=== PATIENT | female | born 1985 | race Caucasian/White ===

== ENCOUNTER 2018-09-14 07:32 | Emergency (ER) | payer BC, SELFPAY ==
[2018-09-14] VITALS (14 sets, daily range): BP systolic 103–127; BP diastolic 46–82; PULSE 98–118; RESP 4–30; TEMP 36.5–37.4; O2SAT 89–99
[2018-09-14] MEDS: Albuterol/Ipratropium 3 ML UPD VIAL (07:45)
--- NOTE | 2018-09-14 07:52 | ED.GENADUL_ITS ---
Discharge Plan Disposition Patient Disposition: HOME Condition: Stable Discharge Details Chief Complaint: RespSymp Clinical Impression: Acute asthma exacerbation Primary Care Provider: Reese Barrera ED Provider: Javier Hlil Home Meds and New Rx's Prescriptions: New prednisone 50 MG tablet 50 mg PO DAILY Qty: 5 RF: 0 No Action prednisone 5 MG tablet 5 mg PO PRN PRNRF: 0 montelukast [Singulair] 10 MG tablet 10 mg PO DAILY RF: 0 Advair Diskus 1 EACH blister with device 1 puff Inhalation DAILY RF: 0 ProAir HFA 200 PUFF HFA aerosol inhaler 2 puff Inhalation PRN PRNRF: 0 loratadine [Claritin Liqui-Gel] 10 MG capsule 10 mg PO DAILY RF: 0 Discharge Instructions Instructions: Asthma (ED) Additional Instructions: Please take the steroid as directed, please continue to take your inhalers at home every 4-6 hours for the next 24-48 hours. If you notice any worsening of your symptoms, or any new symptoms such as vomiting, diarrhea, fever, chills, shortness of breath, chest pain, numbness, weakness, or fainting , please return immediately to the emergency department for reevaluation. Please follow up with your primary care provider as soon as possible for reassessment and reevaluation. As always, it was a pleasure participating in your medical care today. Referrals: Reese Barrera [Primary Care Provider] - Discharge Data Discharge Date/Time-TO BE ENTERED AT DEPARTURE: 09/14/18 10:23 Medical Decision Making <Umair Nix MD - Last Filed: 09/16/18 10:13> 33 yo female with hx of asthma comes in with shortness of breath since this morning. She states she felt well all day yesterday but did go in the attic to get wrapping paper and there was a lot of dust which can cause her asthma to worsen. She used home beta agonists and called ems who gave nebs and 125mg IV solumedrol and she now states she feels better. She has no hest pain or pressure and denies cough or fevers. She is speaking in 4-5 word sentences and has diffuse wheezing on exam consistent wtih an asthma exacerbation. She has no evidence of dvt or pleuritic chest pain to suggest PE and physical exam is more consistent with asthma. No chest pain or pressure or jvd so doubt acs or chf. I did recommend a chest xray but pt declined this at this time as she states she always gets an xray and doesn't show any pneumonia. Pt will be signed out to Dr. Hill to f/u on patient rsponse to further nebs Differential Diagnosis pneumonia, asthma, rad HPI <Umair Nix MD - Last Filed: 09/16/18 10:13> General Mode of arrival: EMS . Date/Time Provider Initiated Documentation: 09/14/18 07:43 . Limitations to Documentation: no limitations . Information obtained by: patient . History of Present Illness 33 year old F presents to the emergency department with the chief complaint of shortness of breath, described as moderate, Patient started experiencing this hour(s) (5) and it has been constant. other things that improve symptom(s), (nebulizer) No exacerbating factors reported . Patient notes no other symptoms.. Related Data Home Medications Medication Instructions Recorded Confirmed ProAir HFA 2 puff INHALATION PRN PRN 07/30/16 09/14/18 fluticasone-salmeterol [Advair 1 puff INHALATION DAILY 07/30/16 09/14/18 100-50 Diskus] loratadine [Claritin Liqui-Gel] 10 mg PO DAILY 07/30/16 09/14/18 montelukast [Singulair] 10 mg PO DAILY 07/30/16 09/14/18 prednisone 5 mg PO PRN PRN 07/30/16 09/14/18 prednisone 50 mg PO DAILY #5 tab 09/14/18 Previous Rx's Medication Instructions Recorded prednisone 50 mg PO DAILY #5 tab 09/14/18 Allergies Allergy/AdvReac Type Severity Reaction Status Date / Time Penicillins Allergy Mild Skin Rash Unverified 09/14/18 07:45 bee pollen AdvReac Severe Anaphylaxsi Unverified 09/14/18 07:45 s pet dender Allergy Mild Itching Uncoded 09/14/18 07:45 mold AdvReac Severe Anaphylaxsi Uncoded 09/14/18 07:45 s General Stated Complaint: RespSymp DAYO: 3 <Javier Hill DO - Last Filed: 09/14/18 10:14> HPI Narrative: The patient was signed out to me my my colleague Dr. Nix. We are pending improvement of the patient's respiratory symptoms at that time. Patient has had a notable improvement in her symptomatology. She states that she feels much better at this time and would like to go. She is breathing well and shows no signs of respiratory distress. Unfortunately after the additional duo nebs the patient's heart rate did slightly increase to the 120s however while she is resting her heart rate is stable in the mid 90s-100. I discussed additional imaging, and further laboratory workup and the patient refuses any this at this time stating that she will be normal. She feels very comfortable at this time, and feels completely improved with her respiratory status. We did ambulate the patient and her saturations remained greater than 93 during the entire ambulatory pulse ox phase. She showed no signs of significant res piratory distress. Oxygen saturation continues to remain stable, and with the patient's notable clinical improvement and respecting her current wishes for no additional diagnostic imaging I feel that she can be safely discharged home. We did have respiratory therapy come and evaluate the patient multiple times, they do feel comfortable in her clinical scenario. The patient does have a spacer at home already. We will schedule her for an outpatient PFT study. All questions were answered. I have extensively reviewed the treatment plan and discharge instructions with the patient and their family. I have addressed all patient concerns at this time. The patient and family was made aware of what symptoms to monitor for that would warrant a return to the emergency department. Discussed the plan with the patient and family, they demonstrate verbal understanding and agreement with our assessment and plan at this time. Review of Systems <Umair Nix MD - Last Filed: 09/16/18 10:13> Review of Systems All systems reviewed & are unremarkable except as noted in HPI and below Constitutional Denies chills, Denies fever(s) and Denies weakness ENT Denies change in voice Cardiovascular Denies chest pain Gastrointestinal Denies abdominal pain, Denies nausea and Denies vomiting Musculoskeletal Denies joint swelling Neurologic Denies weakness PFSH <Umair Nix MD - Last Filed: 09/16/18 10:13> Social History Smoking/Tobacco Use Status: Never Exam <Umair Nix MD - Last Filed: 09/16/18 10:13> Const General: no acute distress Orientation: alert HENMT Head: normal to inspection Ears: external ears normal General nose exam: external nose normal Mouth: moist mucous membranes Eyes General: appearance normal, both eyes and all related structures Neck Neck: normal visual inspection Resp Auscultation: wheezes Cardio Rate: regular rate Skin General skin exam: no rashes or lesions noted Neuro General: alert and oriented x3 Extrem General: normal to inspection Psych Mental Status: mental status grossly normal Course <Umair Nix MD - Last Filed: 09/16/18 10:13> Vital Signs Temperature 36.5 C 09/14/18 07:38 Pulse 115 H 09/14/18 07:38 Respiratory Rate 21 09/14/18 07:38 Blood Pressure 127/82 09/14/18 07:38 Pulse Oximetry 96 09/14/18 07:38 Temperature 36.5 C 09/14/18 07:38 Temperature Source Temporal Artery Scan 09/14/18 07:38 Pulse 115 H 09/14/18 07:38 Respiratory Rate 21 09/14/18 07:38 Blood Pressure 127/82 09/14/18 07:38 Blood Pressure Position Sitting 09/14/18 07:38 Pulse Oximetry 96 09/14/18 07:38 Oxygen Delivery Method Room Air 09/14/18 07:38 Oxygen Flow Rate 0 09/14/18 07:38 Pain Level 0 09/14/18 07:38
[2018-09-14 07:55] LABS: Abs Immature Grans 0.01 k/cumm (0.0-0.09); Absolute Basophil Count 0.06 k/cumm (0.0-0.2); Absolute Eosinophil Count 0.43 k/cumm (0.0-0.7); Absolute Lymphocyte Count 2.09 k/cumm (1.2-3.4); Absolute Monocyte Count 0.51 k/cumm (0.11-0.7); Absolute Neutrophil Count 6.49 k/cumm (1.2-6.7); Basophils % 0.6; Eosinophils % 4.5; HCT 46.7 % (36.0-46.0); HGB 15.8 g/dL (12.0-15.5); Immature Grans % 0.1; Lymphocytes % 21.8; Mean Corp. HGB Concentration 33.8 g/dL (32.0-36.0); Mean Corpuscular Hemoglobin 31.7 pg (27.0-33.0); Mean Corpuscular Volume 93.8 fL (80-95); Mean Platelet Volume 8.3 fL (8.0-11.0); Monocytes % 5.3; Neutrophils % 67.7; Platelet Count 285 x1000/uL (130-400); RBC 4.98 m/cumm (4.00-5.20); RBC Distribution Width 13.1 % (11.7-14.6); White Blood Cell Count 9.59 k/cumm (4.4-10.8)
[2018-09-14] MEDS: Ondansetron 4 MG/2 ML VIAL (08:01)
[2018-09-14] MEDS: Normal Saline 1,000 ML 1000 ML IV ×2 (08:03→09:05)
[2018-09-14 08:08] LABS: ALT 22 U/L (12-78); AST 8 U/L (15-37); Albumin 3.6 g/dL (3.4-5.0); Alkaline Phosphatase 50 U/L (46-116); Anion Gap 7.4 mmol/L (3-11); BUN 15 mg/dL (7-18); Bilirubin, Total 0.7 mg/dL (0.2-1.0); CO2 28.6 mmol/L (21.0-32.0); CREATININE 0.85 mg/dL (0.55-1.02); Calcium 9.1 mg/dL (8.5-10.1); Chloride 106 mmol/L (98-107); Glucose 121 mg/dL (70-100); Potassium 4.4 mmol/L (3.5-5.1); Sodium 142 mmol/L (136-145); Total Protein 7.2 g/dL (6.4-8.2)
--- NOTE | 2018-09-14 10:05 | RESPIRATORY ---
09/14/18-Met with Pt to discuss OutPt. Respiratory f/u plan. Pt was given neb cups to go home with. Recommended and discussed with Pt having a f/u PFT. [facility] order [facility].
== END 2018-09-14 10:23 | disposition home or self-care (01) ==
PROVIDERS: Emergency Medicine; Emergency Provider Student in an Organized Health Care Education/Training Program; PCP Family Medicine
DX: J45.901 Unspecified asthma with (acute) exacerbation (principal)
CPT/HCPCS: 36415; 80053; 94640; 96361; 96374; 99284; 85025; J2405; J3490; J7620

== ENCOUNTER 2018-10-12 10:27 | Emergency (ER) | payer BC, SELFPAY ==
[2018-10-12] VITALS (17 sets, daily range): BP systolic 117–143; BP diastolic 62–73; PULSE 89–122; RESP 4–22; TEMP 37–37.2; O2SAT 90–100
--- NOTE | 2018-10-12 10:34 | ED.GENADUL_ITS ---
Discharge Plan Disposition Patient Disposition: HOME Condition: Improving Discharge Details Chief Complaint: RespSymp Clinical Impression: Acute asthma exacerbation Primary Care Provider: Reese Barrera ED Provider: Dai Garcia Home Meds and New Rx's Prescriptions: New Advair Diskus 250-50 mcg/dose blister with device 1 inh IH BID Qty: 14 RF: 0 prednisone 50 mg tablet 50 mg PO DAILY 5 Days Qty: 5 RF: 0 loratadine [Claritin] 10 mg tablet 10 mg PO DAILY 30 Days Qty: 30 RF: 0 albuterol sulfate 2.5 mg /3 mL (0.083 %) solution for nebulization 1.25 mg IH QID PRN (Reason: shortness of breath or wheezing) Qty: 75 RF: 0 No Action montelukast [Singulair] 10 MG tablet 10 mg PO DAILY RF: 0 ProAir HFA 200 PUFF HFA aerosol inhaler 2 puff Inhalation PRN PRNRF: 0 Discharge Instructions Instructions: Asthma (ED) Additional Instructions: Use your albuterol inhaler and nebulizer as directed and needed. Take the Advair inhaler daily. Take your Claritin and Singulair daily. Take the steroids until finished. Follow-up with respiratory therapy for your pulmonary function testing. Follow-up with your primary care doctor in 1 week for reevaluation. Return immediately to the emergency department any worsening or new concerning symptoms. Discharge Data Discharge Date/Time-TO BE ENTERED AT DEPARTURE: 10/12/18 12:55 Discharge Physician: Dai Garcia Medical Decision Making 33-year-old female with history of asthma with no history of intubations who presents with cough and shortness of breath since yesterday, worse this morning. Denies any recent fever but does have a sick contact with son with croup. EMS states upon their arrival, patient had O2 sat of 92% on room air, tachypneic to the 50s, tachycardic to the 120s. She was given 2 neb treatments and 125 mg Solu-Medrol and much improved. Respiratory rate decreased to the 30s, and O2 sat 100% during neb treatment, and 95% on room air prior to arrival to ED. Patient arrives to ED able to speak in full sentences, she admits to 80% improvement. She is unsure of her baseline peak flow and states she has difficulty doing this. She has some air movement, slightly diminished, with scattered wheezing. No accessory muscle use. Will give additional DuoNeb and neb treatments, and reassess. 1130 -- pt feels much better. Breath sounds significantly improved, very minimal wheezing. Patient states she feels almost 100% better and feels good to go home. Discussed with respiratory therapy and they plan to follow-up with patient for pulmonary function testing. They had recommended a CBC to check for eosinophils to rule out eosinophilic asthma as she may have an allergic component but her eosinophils were normal. Patient states she ran out of her Flovent several months ago and had not been taking her Claritin. She states lately she had been requiring her albuterol a few times weekly in the nighttime. Patient needs better controller medication. We will send home with a prescription for Advair, refill her Claritin as well as albuterol. She was given peak flow for home. Pt was able to ambulate easily out of the ED and is smiling and in no acute distress. She is instructed to follow with a primary care doctor for reevaluation and to return at any time if worse. HPI General Mode of arrival: ambulatory . Date/Time Provider Initiated Documentation: 10/12/18 10:37 . Limitations to Documentation: no limitations . Information obtained by: patient . HPI Narrative: Patient is a 33-year-old female with a history of asthma who presents with coughing and shortness of breath since yesterday, worse since this morning. She used her inhaler and gave herself neb treatments without relief. Patient states she thinks he would stove at home made her symptoms worse. Patient was seen here 1 month ago for similar history and had taken steroids and her symptoms improved. Patient states she ran out of her Flovent in the summer and did not refill it, and she has not been taking her Claritin or Singulair. States her son was recently diagnosed with croup and she thinks she may have caught in his a virus. She denies any known fever and states her cough is dry. She states she otherwise has been eating and drinking normally. Zenaida states that upon their arrival, patient was tachypnea to the 50s, O2 sat 92% on room air, and tachycardic to the 120s. She was given 2 neb treatments and 125 mg Solu-Medrol IV and has much improvement. O2 sat increased to 100% on neb treatment, and 95% on room air, respiratory rate improved to the 30s-50s, and heart rate decreased to the low 100s. Related Data Home Medications Medication Instructions Recorded Confirmed ProAir HFA 2 puff INHALATION PRN PRN 07/30/16 10/12/18 montelukast [Singulair] 10 mg PO DAILY 07/30/16 10/12/18 albuterol sulfate 1.25 mg IH QID PRN #75 ml 10/12/18 fluticasone-salmeterol [Advair 1 inh IH BID #14 each 10/12/18 Diskus] loratadine [Claritin] 10 mg PO DAILY 30 Days #30 tab 10/12/18 prednisone 50 mg PO DAILY 5 Days #5 tab 10/12/18 Previous Rx's Medication Instructions Recorded albuterol sulfate 1.25 mg IH QID PRN #75 ml 10/12/18 fluticasone-salmeterol [Advair 1 inh IH BID #14 each 10/12/18 Diskus] loratadine [Claritin] 10 mg PO DAILY 30 Days #30 tab 10/12/18 prednisone 50 mg PO DAILY 5 Days #5 tab 10/12/18 Allergies Allergy/AdvReac Type Severity Reaction Status Date / Time Penicillins Allergy Mild Skin Rash Unverified 10/12/18 12:31 bee pollen AdvReac Severe Anaphylaxsi Unverified 10/12/18 12:31 s pet dender Allergy Mild Itching Uncoded 10/12/18 12:31 mold AdvReac Severe Anaphylaxsi Uncoded 10/12/18 12:31 s General Stated Complaint: RespSymp DAYO: 3 Review of Systems Review of Systems All systems reviewed & are unremarkable except as noted in HPI and below Constitutional Reports as per HPI, Denies chills and Denies fever(s) Eyes Denies blurry vision ENT Denies dizziness, Denies sore throat and Denies throat swelling Cardiovascular Denies chest pain and Reports dyspnea Respiratory Reports cough and Reports dyspnea Gastrointestinal Denies abdominal pain, Denies diarrhea and Denies vomiting Genitourinary Denies hematuria and Denies dysuria Musculoskeletal Denies back pain and Denies numbness Integumentary/Breasts Denies lesions and Denies rash Neurologic Denies dizziness and Denies numbness Allergic/Immunologic Denies throat swelling [facility] Medical History Asthma (Chronic) Surgical History History of bilateral tubal ligation (Acute) H/O section (Chronic) Social History Smoking/Tobacco Use Status: Never alcohol intake: never substance use type: does not use Exam Const General: cooperative, healthy appearing and no acute distress HENMT Head: normal to inspection Face and sinus: normal facial exam Eyes General: appearance normal, both eyes and all related structures EOM: EOM intact bilaterally Neck Neck: normal visual inspection and No submandibular swelling Lymphatic: no lymphadenopathy noted Chest Chest: normal inspection of the chest and no tenderness Resp Effort & Inspection: normal respiratory effort, able to speak in complete sentences and other Auscultation: diminished lung sounds bilaterally throughout, no rhonchi and wheezes Cardio Rate: tachycardic Rhythm: regular rhythm GI Inspection: normal to inspection Skin General skin exam: no rashes or lesions noted Neuro General: alert, awake and oriented x3 Cognition: normal cognition Speech: speech normal Motor: muscle tone normal throughout Sensory Exam: no sensory deficits noted Extrem General: normal to inspection, full ROM, normal capillary refill, no calf tenderness bilaterally and no edema Psych Appearance: grossly normal Mental Status: mental status grossly normal Speech and Movement: speech and movement normal Affect: normal affect Course Vital Signs Temperature 98.6 F 10/12/18 10:29 Pulse 122 H 10/12/18 10:29 Respiratory Rate 22 10/12/18 10:29 Blood Pressure 143/73 H 10/12/18 10:29 Pulse Oximetry 95 10/12/18 10:29 Temperature 98.6 F 10/12/18 10:29 Temperature Source Temporal Artery Scan 10/12/18 10:29 Pulse 122 H 10/12/18 10:29 Respiratory Rate 22 10/12/18 10:29 Blood Pressure 143/73 H 10/12/18 10:29 Blood Pressure Position Sitting 10/12/18 10:29 Pulse Oximetry 95 10/12/18 10:29 Oxygen Delivery Method Room Air 10/12/18 10:29 Oxygen Flow Rate 0 10/12/18 10:29 Pain Level 0 10/12/18 10:29
[2018-10-12] MEDS: Albuterol/Ipratropium 3 ML UPD VIAL UPD (10:39)
[2018-10-12] MEDS: Albuterol/Ipratropium 3 ML UPD VIAL (10:45)
--- NOTE | 2018-10-12 10:53 | NUR.NOTE ---
Arrives via EMS. Report solumedrol and duoneb x2 in field. Ryann alert, mild prolonged exhale on arrival. On scale of 10, reports breathing 10 this AM, now feels better 4. Skin warm, dry, pink. Nursing Note:
[2018-10-12 12:00] LABS: Abs Immature Grans 0.03 k/cumm (0.0-0.09); Absolute Eosinophil Count 0.07 k/cumm (0.0-0.7); Absolute Lymphocyte Count 0.99 k/cumm (1.2-3.4); Absolute Monocyte Count 0.16 k/cumm (0.11-0.7); Absolute Neutrophil Count 12.35 k/cumm (1.2-6.7); Basophils % 0.1; Eosinophils % 0.5; HCT 45.8 % (36.0-46.0); HGB 15.7 g/dL (12.0-15.5); Immature Grans % 0.2; Lymphocytes % 7.3; Mean Corp. HGB Concentration 34.3 g/dL (32.0-36.0); Mean Corpuscular Hemoglobin 32.1 pg (27.0-33.0); Mean Corpuscular Volume 93.7 fL (80-95); Mean Platelet Volume 8.5 fL (8.0-11.0); Monocytes % 1.2; Neutrophils % 90.7; Platelet Count 259 x1000/uL (130-400); RBC 4.89 m/cumm (4.00-5.20); RBC Distribution Width 13.1 % (11.7-14.6); White Blood Cell Count 13.62 k/cumm (4.4-10.8)
[2018-10-12 12:01] LABS: Absolute Basophil Count 0.01 k/cumm (0.0-0.2)
--- NOTE | 2018-10-12 12:18 | NUR.NOTE ---
Up to void, reports adequate U/O. No dizziness. Has been on RA, SpO2 >92. I feel perfect right now stated after void, resting on stretcher. Reports feeling a little winded with ambulation to bathroom.Nursing Note:
--- NOTE | 2018-10-12 12:58 | RESPIRATORY ---
10/12/18-Pt arrived by EMS SOB. Pt states she was awoken three different times with SOB. She took her Alb MDI once and then, alb neb two times with no relief. She states her was moving new wood from a back room when she got quite SOB and just took herslef out of the house to get fresh air which she says soothed her more. When EMS arrived Pt was sitting in a chair in [facility]. Pt was given two Duonebs through [employer] [facility]. BS were wheezy . Pt reports she feels a lot better. SOB has resolved. Education on peak flow meter usage along with Asthma Action Plan was developed. Pt was only able to produce 245L/min. post exacerbation. Education on the importance of the peak flow monitoring was discussed.
== END 2018-10-12 12:55 | disposition home or self-care (01) ==
PROVIDERS: Emergency Provider Physician Assistant; PCP Family Medicine
DX: R06.82 Tachypnea, not elsewhere classified (principal); J45.901 Unspecified asthma with (acute) exacerbation; T45.0X6A Underdosing of antiallergic and antiemetic drugs, initial encounter; Z91.128 Patient's intentional underdosing of medication regimen for other reason
CPT/HCPCS: 36415; 94640; 99284; 85025; J7620

== ENCOUNTER 2018-12-21 08:50 | Emergency (ER) | payer BC, SELFPAY ==
[2018-12-21] VITALS (35 sets, daily range): BP systolic 62–168; BP diastolic 31–126; PULSE 122–130; RESP 4–40; TEMP 37.1; O2SAT 90–96
--- NOTE | 2018-12-21 08:56 | ED.GENADUL_ITS ---
Discharge Plan Disposition Patient Disposition: HOME Condition: Improving Discharge Details Chief Complaint: RespSymp Clinical Impression: Asthma exacerbation Primary Care Provider: Reese Barrera ED Provider: Dai Garcia Home Meds and New Rx's Prescriptions: New montelukast [Singulair] 10 mg tablet 10 mg PO QPM Qty: 30 RF: 0 prednisone 20 mg tablet 20 mg PO DAILY Qty: 12 RF: 0 Continued montelukast [Singulair] 10 MG tablet 10 mg PO DAILY RF: 0 ProAir HFA 200 PUFF HFA aerosol inhaler 2 puff Inhalation PRN PRNRF: 0 Advair Diskus 250-50 mcg/dose blister with device 1 inh IH BID Qty: 14 RF: 0 albuterol sulfate 2.5 mg /3 mL (0.083 %) solution for nebulization 1.25 mg IH QID PRN (Reason: shortness of breath or wheezing) Qty: 75 RF: 0 Discharge Instructions Instructions: Asthma (ED) Additional Instructions: Use the albuterol inhaler and nebulizer as needed and directed for shortness of breath or wheezing. Take the Singulair and Advair as directed daily. Take the steroids as directed until finished. Call your primary care doctor tomorrow morning to schedule follow-up appointment for reevaluation and for referral for pulmonary function testing with respiratory and for an outpatient sleep study to rule out obstructive sleep apnea. Discharge Data Discharge Date/Time-TO BE ENTERED AT DEPARTURE: 12/21/18 12:42 Discharge Physician: Dai Garcia Medical Decision Making 33-year-old female with a history of asthma exacerbation who presents with shortness of breath and wheezing since 4 AM this morning. No relief with 3 nebs at home. She presented in moderate respiratory distress and some element of anxiety and tearful. Heart rate 120s. O2 sat 90% on room air. Respiratory rate 40s. Some accessory muscle use. Patient given DuoNeb, will place an IV, Solu-Medrol, magnesium and check labs and chest x-ray. 0910 --patient feels better. Still appears mildly anxious. Respiratory rate 20s. No accessory muscle use. Still with some wheezing and rhonchi. Will give another 5 mg neb and reassess. 1020 --O2 sats 90% on 2L while sleeping, 94% while awake. Pt sounds tight again. Will give a 7.5mg neb and reassess. 1150 --patient feels much better and is requesting to go home. O2 saturation off oxygen for the past 50 minutes 95% on room air. She occasionally has gone down to 89% while sleeping, but when she awakens she is around 94-95%. Breath sounds improved. Heart rate tachycardic in the 120s which is likely due to the albuterol. Patient demonstrates no signs of acute respiratory distress, accessory muscle use and she is speaking in full sentences. She is texting on phone and laughing with her mother in room and appears comfortable. 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 She had been taking Singulair in the past but she ran out of this. Will refill her prescription for Singulair, give an albuterol inhaler for home, as well as a prescription for prednisone. She states she has plenty of her albuterol solution and Advair. She is instructed to call her primary care doctor tomorrow to schedule a follow-up appointment for reevaluation and for referral for a pulmonary function test as well as a sleep study. She states that she has had concerns in the past before that she has obstructive sleep apnea as she has thought that she usually has low her oxygen when she is sleeping. Medical Records Medical records reviewed: Yes I reviewed the patient's medical records. Imaging Data Radiologic Study: Radiologist's impression: XR Chest, 1 View EXAM DATE/TIME: 12/21/2018 8:59 AM FINDINGS: Lungs: Unremarkable. No consolidation. Pleural space: Unremarkable. No pleural effusion. No pneumothorax. Heart/Mediastinum: Unremarkable. No cardiomegaly. Bones/joints: Unremarkable. IMPRESSION: No acute findings. Lab Data Lab results reviewed: Yes I reviewed the patient's lab results. Laboratory Tests Range/Units 12/21/18 12/21/18 12/21/18 09:40 09:40 09:40 WBC (4.4-10.8) k/cumm 12.11 H RBC (4.00-5.20) m/cumm 4.85 Hgb (12.0-15.5) g/dL 15.4 Hct (36.0-46.0) % 45.1 MCV (80-95) fL 93.0 MCH (27.0-33.0) pg 31.8 MCHC (32.0-36.0) g/dL 34.1 RDW (11.7-14.6) % 13.4 Plt Count (130-400) x1000/uL 281 MPV (8.0-11.0) fL 8.4 Immature Gran % 0.2 Neutrophils % 85.0 Lymphocytes % 10.7 Monocytes % 2.4 Eosinophils % 1.4 Basophils % 0.3 Absolute Neutrophils (1.2-6.7) k/cumm 10.29 H Absolute Lymphocytes (1.2-3.4) k/cumm 1.30 Absolute Monocytes (0.11-0.7) k/cumm 0.29 Absolute Eosinophils (0.0-0.7) k/cumm 0.17 Absolute Basophils (0.0-0.2) k/cumm 0.04 Sodium (136-145) mmol/L 142 Potassium (3.5-5.1) mmol/L 3.8 Chloride (98-107) mmol/L 105 Carbon Dioxide (21.0-32.0) mmol/L 26.1 Anion Gap (3-11) mmol/L 10.9 BUN (7-18) mg/dL 14 Creatinine (0.55-1.02) mg/dL 0.92 Estimated GFR/1.73 m2 (mL/min/1.73m2) >= 60.00 Glucose (70-100) mg/dL 140 H Calcium (8.5-10.1) mg/dL 9.2 Serum HCG, Qual Negative HPI General Mode of arrival: ambulatory . Date/Time Provider Initiated Documentation: 12/21/18 08:55 . Limitations to Documentation: no limitations . Information obtained by: patient . HPI Narrative: Pt is a 33yo F w/ a h/o asthma who presents to the ED w/ a c/o shortness of breath since 4 AM. She took 3 neb treatments and 25 mg of prednisone at home without relief. Denies history of intubations. States her last steroids was 1 month ago. Pt states she was supposed with f/u with [facility] here for pulmonary function testing but she has not done this yet. Related Data Home Medications Medication Instructions Recorded Confirmed ProAir HFA 2 puff INHALATION PRN PRN 07/30/16 10/12/18 montelukast [Singulair] 10 mg PO DAILY 07/30/16 10/12/18 Advair Diskus 1 inh IH BID #14 each 10/12/18 albuterol sulfate 1.25 mg IH QID PRN #75 ml 10/12/18 montelukast [Singulair] 10 mg PO QPM #30 tab 12/21/18 prednisone 20 mg PO DAILY #12 tab 12/21/18 Previous Rx's Medication Instructions Recorded Advair Diskus 1 inh IH BID #14 each 10/12/18 albuterol sulfate 1.25 mg IH QID PRN #75 ml 10/12/18 montelukast [Singulair] 10 mg PO QPM #30 tab 12/21/18 prednisone 20 mg PO DAILY #12 tab 12/21/18 Allergies Allergy/AdvReac Type Severity Reaction Status Date / Time Penicillins Allergy Mild Skin Rash Unverified 10/12/18 12:31 bee pollen AdvReac Severe Anaphylaxsi Unverified 10/12/18 12:31 s pet dender Allergy Mild Itching Uncoded 10/12/18 12:31 mold AdvReac Severe Anaphylaxsi Uncoded 10/12/18 12:31 s General DAYO: 3 Review of Systems Review of Systems All systems reviewed & are unremarkable except as noted in HPI and below Constitutional Reports as per HPI, Denies chills and Denies fever(s) Eyes Denies blurry vision ENT Denies dizziness, Denies sore throat and Denies throat swelling Cardiovascular Denies chest pain and Reports dyspnea Respiratory Denies cough and Reports dyspnea Gastrointestinal Denies abdominal pain, Denies diarrhea and Denies vomiting Genitourinary Denies hematuria and Denies dysuria Musculoskeletal Denies back pain and Denies numbness Integumentary/Breasts Denies lesions and Denies rash Neurologic Denies dizziness, Denies focal weakness and Denies numbness Allergic/Immunologic Denies throat swelling [facility] Medical History Asthma (Chronic) Surgical History History of bilateral tubal ligation (Acute) H/O section (Chronic) Social History Smoking/Tobacco Use Status: Never Alcohol Intake: never Drug use: Never Substance use type: does not use Do you feel safe in your relationship?: Yes Exam Const General: cooperative, healthy appearing, in distress respiratory (moderate) and anxious HENMT Head: normal to inspection Face and sinus: normal facial exam Eyes General: appearance normal, both eyes and all related structures EOM: EOM intact bilaterally Neck Neck: normal visual inspection and No submandibular swelling Lymphatic: no lymphadenopathy noted Chest Chest: normal inspection of the chest and no tenderness Resp Effort & Inspection: normal respiratory effort and not able to speak in complete sentences (speaks in 3-4 word sentences) Auscultation: diminished lung sounds bilaterally throughout, rhonchi and wheezes Cardio Rate: tachycardic Rhythm: regular rhythm GI Inspection: normal to inspection Palpation: soft, not firm, not rigid and nontender Auscultation: normal bowel sounds Skin General skin exam: no rashes or lesions noted Neuro General: alert, awake and oriented x3 Cognition: normal cognition Speech: speech normal Motor: muscle tone normal throughout Sensory Exam: no sensory deficits noted Extrem General: normal to inspection, full ROM and no edema Psych Appearance: grossly normal Mental Status: mental status grossly normal Speech and Movement: speech and movement normal Affect: normal affect
--- NOTE | 2018-12-21 09:05 | DI.RAD_ITS ---
SYMPTOM/DIAGNOSIS: EXAC OF ASTHMA PORTABLE AP CHEST AT 0908 HOURS: The heart is not enlarged. The lungs are clear and well expanded. CONCLUSION: No evidence of acute disease.
[2018-12-21] MEDS: Albuterol 2.5 MG/3 ML INH SOLN VIAL ×4 (09:28→10:53)
[2018-12-21] MEDS: Normal Saline 1,000 ML 1000 ML IV (09:35)
[2018-12-21] MEDS: Albuterol/Ipratropium 3 ML UPD VIAL (09:35)
[2018-12-21] MEDS: methylPREDNISolone SUCC 125 MG VIAL IVP (09:35)
[2018-12-21] MEDS: MAGNESIUM SULFATE 2 GM/50 ML BAG IVPB (09:35)
--- NOTE | 2018-12-21 09:46 | DI.VRAD_ITS ---
EXAM: XR Chest, 1 View EXAM DATE/TIME: 12/21/2018 8:59 AM CLINICAL HISTORY: 33 years old, female; Signs and symptoms; Shortness of breath TECHNIQUE: Imaging protocol: XR of the chest, 1 view. COMPARISON: CR CHEST 2 VIEWS PA,LAT 07/30/2016 6:31 AM FINDINGS: Lungs: Unremarkable. No consolidation. Pleural space: Unremarkable. No pleural effusion. No pneumothorax. Heart/Mediastinum: Unremarkable. No cardiomegaly. Bones/joints: Unremarkable. IMPRESSION: No acute findings. Dictated and Authenticated by: Yvonne Sherman MD. Ordering:WINTER Lala MD
[2018-12-21 09:49] LABS: Abs Immature Grans 0.03 k/cumm (0.0-0.09); Absolute Basophil Count 0.04 k/cumm (0.0-0.2); Absolute Eosinophil Count 0.17 k/cumm (0.0-0.7); Absolute Monocyte Count 0.29 k/cumm (0.11-0.7); Basophils % 0.3; Eosinophils % 1.4; HCT 45.1 % (36.0-46.0); HGB 15.4 g/dL (12.0-15.5); Immature Grans % 0.2; Lymphocytes % 10.7; Mean Corp. HGB Concentration 34.1 g/dL (32.0-36.0); Mean Corpuscular Hemoglobin 31.8 pg (27.0-33.0); Mean Platelet Volume 8.4 fL (8.0-11.0); Monocytes % 2.4; Platelet Count 281 x1000/uL (130-400); RBC 4.85 m/cumm (4.00-5.20); RBC Distribution Width 13.4 % (11.7-14.6); White Blood Cell Count 12.11 k/cumm (4.4-10.8)
[2018-12-21 09:51] LABS: Absolute Neutrophil Count 10.29 k/cumm (1.2-6.7)
[2018-12-21 09:56] LABS: Anion Gap 10.9 mmol/L (3-11); BUN 14 mg/dL (7-18); CO2 26.1 mmol/L (21.0-32.0); CREATININE 0.92 mg/dL (0.55-1.02); Calcium 9.2 mg/dL (8.5-10.1); Chloride 105 mmol/L (98-107); Glucose 140 mg/dL (70-100); Potassium 3.8 mmol/L (3.5-5.1); Sodium 142 mmol/L (136-145)
[2018-12-21 10:05] LABS: HCG Qual (Serum) Negative
[2018-12-21] MEDS: Albuterol HFA 8 GM 60 PUFF INH IH (12:27)
== END 2018-12-21 12:42 | disposition home or self-care (01) ==
PROVIDERS: Emergency Provider Physician Assistant; PCP Family Medicine
DX: J45.901 Unspecified asthma with (acute) exacerbation (principal)
CPT/HCPCS: 36415; 80048; 94640; 96361; 96365; 96375; 99284; 71045; 84703; 85025; J2930; J7613; J7620

== ENCOUNTER 2019-10-02 06:25 | Inpatient (IN) | payer BC, SELFPAY ==
[2019-10-02] VITALS (69 sets, daily range): BP systolic 91–146; BP diastolic 47–120; PULSE 95–168; RESP 1–32; TEMP 36.4–36.9; O2SAT 74–99
[2019-10-02] MEDS: EPINEPHrine 1 MG/ML AMP pres-free (06:30)
[2019-10-02] MEDS: methylPREDNISolone SUCC 125 MG VIAL (06:40)
--- NOTE | 2019-10-02 06:47 | DI.RAD_ITS ---
EXAM: XR PORTABLE CHEST AP XR PORTABLE CHEST AP CLINICAL HISTORY: sob. sob TECHNIQUE: 2D digital imaging was performed. COMPARISON: XR PORTABLE CHEST AP from 12/21/2018 FINDINGS: LUNGS: Clear. No pleural abnormality seen. HEART: Normal. MEDIASTINUM: Normal. OTHER FINDINGS: None. IMPRESSION: No acute pulmonary findings.
[2019-10-02] MEDS: Albuterol/Ipratropium 3 ML UPD VIAL ×4 (06:50→07:10)
[2019-10-02] MEDS: MAGNESIUM SULFATE 2 GM/50 ML BAG (06:53)
--- NOTE | 2019-10-02 06:53 | ED.GENADUL_ITS ---
Discharge Plan Disposition Patient Disposition: [facility] INPATIENT Condition: Improving Discharge Details Chief Complaint: RespSymp Clinical Impression: Acute respiratory failure, Asthma exacerbation Primary Care Provider: Reese Barrera ED Provider: Umair Nix Home Meds and New Rx's Prescriptions: No Action montelukast [Singulair] 10 MG tablet 10 mg PO DAILY RF: 0 albuterol sulfate [ProAir HFA] 200 PUFF HFA aerosol inhaler 2 puff Inhalation PRN PRNRF: 0 montelukast [Singulair] 10 mg tablet 10 mg PO QPM Qty: 30 RF: 0 fluticasone propion-salmeterol [Advair Diskus] 250-50 mcg/dose blister with device 1 inh IH BID Qty: 14 RF: 0 albuterol sulfate 2.5 mg /3 mL (0.083 %) solution for nebulization 1.25 mg IH QID PRN (Reason: shortness of breath or wheezing) Qty: 75 RF: 0 Medical Decision Making <Javier Hill DO - Last Filed: 10/02/19 07:45> Upon my evaluation, this patient had a high probability of imminent or life- threatening deterioration, which required my direct attention, intervention, and personal management. I have personally provided 45 minutes of critical care time exclusive of time spent on separately billable procedures. Time includes review of laboratory data, radiology results, discussion with consultants, and monitoring for potential decompensation. Interventions were performed as documented. This is a 34-year-old female with past medical history of severe asthma who has been intubated in the past, who presents today for severe asthma exacerbation. Patient is a poor historian, and is also unable to give much the history secondary to her acute respiratory status however per family she has had shortness of breath and notable difficulty breathing starting at 5 AM. She has been using her breathing intermittently. Aside for a near complete inability to breathe she has no other complaints. Patient was blue in color, oxygen saturations were 70% in room air, she was straining to breathe but otherwise following all commands. She was immediately given 1 mg of epinephrine in the right anterior lateral thigh, started on continued nebulizer treatments, 2 g magnesium were rapidly infused, and she was given Solu-Medrol. The decision to intubate was held off secondary to the concern that this would cause worsening of her respiratory status. On a side note, the patient was recently treated by her dentist for a tooth infection with penicillin which she is taking. She shows no signs of angioedema, or anaphylaxis. I do not feel that her symptoms are secondary to an allergic reaction. 7:01 AM Portable chest x-ray shows no evidence of pneumothorax or significant infiltrate. Patient is still demonstrating a notable work of breathing, however she has a notable increase in her air movement in her lungs. And a significant improvement in her symptomatology. We will transition the patient to BiPAP with continuous nebulizer. 7:20 AM Patient is doing significantly better. Oxygen remained stable. She is still mildly tachycardic. We will give some fluids. Lung sounds are significantly improved, work of breathing is notably improved. Feel that the patient is stable for admission. Will contact the hospitalist. 7:44 AM We did contact the hospitalist, she would like to hold off an admission until ABG has been performed. VBG has returned demonstrates minimal respiratory acidosis. The reason we had held off on the ABG was secondary to the patient's notably anxious state. We will get the ABG at this time, patient will be signed out to my colleague Dr. Nix for final disposition and repeat discussion with the hospitalist after ABG. At this time I do feel that the patient is notably stabilized and appropriate for admission here. FINDINGS: Limitations: The costophrenic angles are not included on the image. Lungs: Unremarkable. No consolidation. Pleural space: Unremarkable. No pleural effusion. No pneumothorax. Heart/Mediastinum: Unremarkable. No cardiomegaly. Bones/joints: Unremarkable. IMPRESSION: 1. No acute cardiopulmonary process. 2. There is no significant interval change from the previous study. Thank you for allowing us to participate in the care of your patient. Dictated and Authenticated by: Hollis Davila MD 10/02/2019 7:11 AM Eastern Time ([place] & [place]) <Umair Nix MD - Last Filed: 10/02/19 08:35> pt off bipap now, abg reassuring. Spoke with Dr. Burnette who has to wait to accept pt as she feels she requires ICU and another inpatient that may need the unit bed Dr. Burnette accepts for admission as no inpatient needs the last ICU bed. PT hd stable at this time HPI <Javier Hill DO - Last Filed: 10/02/19 07:45> General Date/Time Provider Initiated Documentation: 10/02/19 06:35 . HPI Narrative: This is a 34-year-old female with past medical history of severe asthma who has been intubated in the past, who presents today for severe asthma exacerbation. Patient is a poor historian, and is also unable to give much the history secondary to her acute respiratory status however per family she has had shortness of breath and notable difficulty breathing starting at 5 AM. She has been using her breathing intermittently. Aside for a near complete inability to breathe she has no other complaints. She denies fever or productive cough. She denies any recent long trips surgeries or procedures. No other complaints at this time. Related Data Home Medications Medication Instructions Recorded Confirmed albuterol sulfate [ProAir HFA] 2 puff INHALATION PRN PRN 07/30/16 10/02/19 montelukast [Singulair] 10 mg PO DAILY 07/30/16 10/02/19 albuterol sulfate 1.25 mg IH QID PRN #75 ml 10/12/18 10/02/19 fluticasone propion-salmeterol 1 inh IH BID #14 each 10/12/18 10/02/19 [Advair Diskus] montelukast [Singulair] 10 mg PO QPM #30 tab 12/21/18 10/02/19 Previous Rx's Medication Instructions Recorded albuterol sulfate 1.25 mg IH QID PRN #75 ml 10/12/18 fluticasone propion-salmeterol 1 inh IH BID #14 each 10/12/18 [Advair Diskus] montelukast [Singulair] 10 mg PO QPM #30 tab 12/21/18 Allergies Allergy/AdvReac Type Severity Reaction Status Date / Time Penicillins Allergy Mild Skin Rash Unverified 10/02/19 07:03 bee pollen AdvReac Severe Anaphylaxsi Unverified 10/02/19 07:03 s pet dender Allergy Mild Itching Uncoded 10/02/19 07:03 mold AdvReac Severe Anaphylaxsi Uncoded 10/02/19 07:03 s General Stated Complaint: RespSymp DAYO: 2 Review of Systems <DO Kelli Beaulieu Last Filed: 10/02/19 07:45> All systems reviewed & are unremarkable except as noted in HPI and below PFSH <Javier Hill DO - Last Filed: 10/02/19 07:45> Medical History Asthma (Chronic) Social History Smoking/Tobacco Use Status: Never Alcohol Intake: never Drug use: Never Substance use type: does not use Do you feel safe in your relationship?: Yes Exam <Javier Hill DO - Last Filed: 10/02/19 07:45> Narrative Exam Narrative: 1.Const: Notable acute severe distress secondary to respiratory compromise 2.Eyes: PERRL, no conjunctival injection, and symmetrical lids. 3.ENT: Atraumatic external nose and ears. Moist MM. Neck: Symmetric, trachea midline, No thyromegaly. No evidence of angioedema 4.CVS: +S1/S2, No murmurs or gallops. Peripheral pulses 2+ and equal in all extremities. Brisk capillary refill in all extremities. 5.RESP: Nearly 0 respiratory or air movement on auscultation, minimal wheeze auscultated at apexes. 6.GI: Soft, Nontender/Nondistended, No hepatosplenomegaly. No guarding or rebound. 7.MSK: Normocephalic/Atraumatic, Extremities w/o deformity or ttp No cyanosis or clubbing, Normal movement of all extremities 8.Skin: Skin is blue in color, notably straining. 9.Neuro: gynaecological oncologist II-XII grossly intact. Sensation grossly intact, no focal neurologic deficits. 10.Psych: (AAO) x3. Extremely anxious. Course <Javier Hill DO - Last Filed: 10/02/19 07:45> Vital Signs Vital signs: Vital Signs Pulse 129 H 10/02/19 06:25 Respiratory Rate 32 H 10/02/19 06:25 Blood Pressure 146/70 H 10/02/19 06:25 Pulse Oximetry 74 L 10/02/19 06:25 Pulse 129 H 10/02/19 06:25 Respiratory Rate 32 H 10/02/19 06:25 Respiratory Effort Accessory Muscle Use 10/02/19 06:46 Respiratory Depth Shallow 10/02/19 06:46 Blood Pressure 146/70 H 10/02/19 06:25 Pulse Oximetry 74 L 10/02/19 06:25 Oxygen Delivery Method Room Air 10/02/19 06:25 Oxygen Flow Rate 0 10/02/19 06:25 Comment 10/02/19 06:25 Sign Out <Javier Hill DO - Last Filed: 10/02/19 07:45> Sign Out Data: Sign Out Comment: Hospitalist requested ABG results prior to admission. Last updated by Javier Hill DO at 10/02/19 07:46
[2019-10-02 06:56] LABS: HCT 47.5 % (36.0-46.0); HGB 15.6 g/dL (12.0-15.5); Mean Corp. HGB Concentration 32.8 g/dL (32.0-36.0); Mean Corpuscular Hemoglobin 31.2 pg (27.0-33.0); Mean Platelet Volume 8.3 fL (8.0-11.0); Platelet Count 440 x1000/uL (130-400); RBC Distribution Width 13.5 % (11.7-14.6); White Blood Cell Count 16.36 k/cumm (4.4-10.8)
[2019-10-02] MEDS: Ondansetron 4 MG/2 ML VIAL (07:09)
--- NOTE | 2019-10-02 07:11 | DI.VRAD_ITS ---
PROCEDURE INFORMATION: Exam: XR Chest, 1 View Exam date and time: 10/02/2019 6:51 AM Age: 34 years old Clinical indication: Other: SOB; Additional info: Dr west was happy with the picture do not want the lower to be done. Due to PT condition. TECHNIQUE: Imaging protocol: XR of the chest Views: 1 view. COMPARISON: SC XR PORTABLE CHEST AP 12/21/2018 9:04 AM FINDINGS: Limitations: The costophrenic angles are not included on the image. Lungs: Unremarkable. No consolidation. Pleural space: Unremarkable. No pleural effusion. No pneumothorax. Heart/Mediastinum: Unremarkable. No cardiomegaly. Bones/joints: Unremarkable. IMPRESSION: 1. No acute cardiopulmonary process. 2. There is no significant interval change from the previous study. Dictated and Authenticated by: Hollis Davila MD. Ordering:MORENA Herrera MD
[2019-10-02 07:16] LABS: ALT 24 U/L (14-59); AST 8 U/L (15-37); Albumin 3.9 g/dL (3.4-5.0); Alkaline Phosphatase 67 U/L (46-116); Anion Gap 14.3 mmol/L (3-11); BUN 16 mg/dL (7-18); Bilirubin, Total 0.5 mg/dL (0.2-1.0); CO2 22.7 mmol/L (21.0-32.0); CREATININE 0.92 mg/dL (0.55-1.02); Calcium 9.4 mg/dL (8.5-10.1); Chloride 106 mmol/L (98-107); Glucose 210 mg/dL (74-106); Potassium 4.3 mmol/L (3.5-5.1); Sodium 143 mmol/L (136-145); Total Protein 7.4 g/dL (6.4-8.2)
[2019-10-02 07:23] LABS: BE (Venous) -0.9 mmol/L (-3-3); HCO3 (Venous) 26 mmol/L (22-28); O2 Sat (Venous) 59 % (70-80); TCO2 (Venous) 24 mmol/L (22-29); pCO2 (Venous) 54 mm/Hg (34-47); pH (Venous) 7.29 (7.35-7.45); pO2 (Venous) 34 mm/Hg (28-44)
[2019-10-02 07:46] LABS: Absolute Eosinophil Count 1.31 k/cumm (0.0-0.7); Absolute Lymphocyte Count 7.53 k/cumm (1.2-3.4); Absolute Monocyte Count 0.82 k/cumm (0.11-0.7); Absolute Neutrophil Count 6.71 k/cumm (1.2-6.7)
[2019-10-02 07:47] LABS: Diff Comment Manual Differential; RBC Morphology Normal
[2019-10-02 08:08] LABS: HCO3 20 mmol/L (22-28); pCO2 36 mmHg (34-47); pH 7.36 (7.35-7.45); pO2 62 mmHg (83-108); sO2 91 % (94-98); tCO2 18 mmol/L (22-29)
[2019-10-02 08:10] LABS: FIO2 21 %; Site Right Radial
[2019-10-02 10:13] LABS: Lactate 3.1 mmol/L (0.6-1.4)
[2019-10-02 10:43] LABS: Procalcitonin < 0.1 ng/mL
--- NOTE | 2019-10-02 10:43 | W.NUTCONSULT ---
Date of service: 10/02/19 Time of Service: 10:44 Nutritional Consult ASSESSMENT: 34 year old female admitted with acute respiratory failure. PMH: morbid obesity, asthma. At high nutritional risk in view of morbid obesity. Will educate on weight management when appropriate. MONITORING AND EVALUATION: po intake and weight trends Time Spent in Nutritional Counseling and Treatment: 0 time spent face to face
[2019-10-02] MEDS: Normal Saline 1,000 ML 150 ML IV ×2 (11:00→18:13)
[2019-10-02] MEDS: Enoxaparin 40 MG/0.4 ML SYR SC (11:28)
[2019-10-02] MEDS: Pantoprazole 40 MG VIAL IVP (11:28)
--- NOTE | 2019-10-02 11:48 | HPE_ITS ---
Date of service: 10/02/19 Time of Service: 11:48 Assessment and Plan Assessment and plan (1) Asthma with acute exacerbation: Status: Acute Assessment and plan: Admitted to ICU for closer mointoring. Will monitor lactates. Treat with IV steroids, nebs, empiric levofloxacin, symbicort. GERD needs to be controlled. (2) Acute respiratory failure with hypoxia: Status: Acute Assessment and plan: Due to acute asthma exacerbation, reflected by elevated lactates. Now significantly improved. Monitor lactates. Wean O2 as tolerated. Continue treatment of exacerbation of asthma as above Monitor in the ICU. (3) GERD (gastroesophageal reflux disease): Status: Chronic Assessment and plan: Starting PPI in the hospital. The patient should be discharged on a PPI (4) Seasonal allergies: Status: Chronic Assessment and plan: Start antihistamine. (5) Tooth abscess: Status: Acute Assessment and plan: I question if the patient is allergic to clindamycin. This isn't clear. Since the patient was started on levofloxacin, will add metronidazole to her therapy. (6) Discharge planning issues: Status: Acute Assessment and plan: Full code Needs an outpatient account leader Critical Care Time 60 minutes (7) DVT prophylaxis: Status: Acute Assessment and plan: Sc Lovenox History of Present Illness History of Present Illness Chief Complaint: shortness of breath Narrative: Ms Riojas is a 34 year old female with PMHx of asthma previously requiring intubation, seasonal allergies, GERD, and obesity with BMI of 40, who was rushed to [facility] ED by her due to acute shortness of breath, which has not improved with 15 puffs of her albuterol inhaler or with albuterol nebulizer treatment. The patient states that she first felt a little short of breath last night, but this episode quickly resolved with 2 puffs of her albuterol. She denies fevers, chills, cough, runny nose, or sore throat. Of note, for the last 2 days the patient was taking clindamycin (first time on it) for a dental infection. She also uses wood heat, and thinks that the cold also triggers her shortness of breath. She also endorses symptoms of GERD which make it hard for her to breath when she gets them. When she arrived to the ED, she was cyanotics and hypoxic to 74 on room air. She was treated with epinephrine, magnesium, solumedrol, nebulizer treatments and placed on BiPAP with good clinical response. She remains slightly hypoxic, now off of BiPAP, and requiring 1L of O2 to saturated 93%. She is now able to complete lengthy sentences without pausing to breathe and feels better. Review of Systems Narrative: 12 systems reviewed. Pertinent positives and negatives are as per HPI. [facility] Medical History (Updated 10/02/19 @ 12:19 by Tiffany Burnette MD) Asthma (Chronic) GERD (gastroesophageal reflux disease) (Chronic) Obesity, morbid, BMI 40.0-49.9 (Acute) Seasonal allergies (Chronic) Surgical History H/O section (Chronic) History of bilateral tubal ligation (Acute) Family History (Updated 10/02/19 @ 11:59 by Tiffany Burnette MD) Maternal Grandfather Hypertension Maternal Aunt Hypertension Maternal Uncle Diabetes Lung cancer Maternal Uncle Diabetes Maternal Grandmother Diabetes Mother Prediabetes Social History Smoking/Tobacco Use Status: Never Alcohol Intake: never Drug use: Never Substance use type: does not use Do you feel safe in your relationship?: Yes Meds Home Medications and Allergies Home Medications Medication Instructions Recorded Confirmed Type albuterol sulfate [ProAir HFA] 2 puff INHALATION PRN PRN 07/30/16 10/02/19 History montelukast [Singulair] 10 mg PO DAILY 07/30/16 10/02/19 History albuterol sulfate 1.25 mg IH QID PRN #75 ml 10/12/18 10/02/19 Rx fluticasone propion-salmeterol 2 inh IH DAILY 10/02/19 10/02/19 History [Advair Diskus] Allergies Allergy/AdvReac Type Severity Reaction Status Date / Time Penicillins Allergy Mild Skin Rash Unverified 10/02/19 07:03 bee pollen AdvReac Severe Anaphylaxsi Unverified 10/02/19 07:03 s pet dender Allergy Mild Itching Uncoded 10/02/19 07:03 mold AdvReac Severe Anaphylaxsi Uncoded 10/02/19 07:03 s Exam Narrative Exam Narrative: General: very pleasant obese female, A&Ox3, laying comfortably in bed, appears slightly anxious, able to complete lengthy sentences prior to stopping to breathe Neuro:A&Ox3, no focal deficits Psych: mildly anxious, appropriate speech pattern/content Skin: visible skin intact; tattoos HEENT: Atraumatic, normocephalic, EOMI, MMM, No lymphadenopathy, goiter, or JVD; Abscessed tooth L maxilla Heart: RRR, tachycardic, no m/r/g Lungs: slight rhonchi on expiration B, +B air entry Abdomen: soft, nontender, nondistended Extremities: no e/c/c BLE's. 2+ pedal pulses B Results Labs Result diagrams: 10/02/19 06:40 10/02/19 06:40 Labs: Laboratory Results - last 24 hr 10/02/19 10/02/19 10/02/19 06:40 06:40 07:17 WBC 16.36 H RBC 5.00 Hgb 15.6 H Hct 47.5 H MCV 95.0 MCH 31.2 MCHC 32.8 RDW 13.5 Plt Count 440 H MPV 8.3 Immature Gran % 0.0 Neutrophils % 41.0 Lymphocytes % 46.0 Monocytes % 5.0 Eosinophils % 8.0 Basophils % 0.0 Absolute Neutrophils 6.71 H Absolute Lymphocytes 7.53 H Absolute Monocytes 0.82 H Absolute Eosinophils 1.31 H Absolute Basophils 0.00 Differential Comment Manual differential RBC Morphology Normal Sample Site pCO2 pO2 O2 Saturation ABG pH ABG HCO3 ABG Total CO2 ABG Base Excess VBG pH 7.29 L VBG pCO2 54 H VBG pO2 34 VBG HCO3 26 VBG Total CO2 24 VBG O2 Saturation 59 L VBG Base Excess -0.9 FiO2 Sodium 143 Potassium 4.3 Chloride 106 Carbon Dioxide 22.7 Anion Gap 14.3 H BUN 16 Creatinine 0.92 Estimated GFR/1.73 m2 >= 60.00 Glucose 210 H Lactate Calcium 9.4 Total Bilirubin 0.5 AST 8 L ALT 24 Alkaline Phosphatase 67 Total Protein 7.4 Albumin 3.9 Procalcitonin 10/02/19 10/02/19 10/02/19 08:05 10:00 10:00 WBC RBC Hgb Hct MCV MCH MCHC RDW Plt Count MPV Immature Gran % Neutrophils % Lymphocytes % Monocytes % Eosinophils % Basophils % Absolute Neutrophils Absolute Lymphocytes Absolute Monocytes Absolute Eosinophils Absolute Basophils Differential Comment RBC Morphology Sample Site Right radial pCO2 36 pO2 62 L O2 Saturation 91 L ABG pH 7.36 ABG HCO3 20 L ABG Total CO2 18 L ABG Base Excess -5.0 L VBG pH VBG pCO2 VBG pO2 VBG HCO3 VBG Total CO2 VBG O2 Saturation VBG Base Excess FiO2 21 Sodium Potassium Chloride Carbon Dioxide Anion Gap BUN Creatinine Estimated GFR/1.73 m2 Glucose Lactate 3.1 H* Calcium Total Bilirubin AST ALT Alkaline Phosphatase Total Protein Albumin Procalcitonin < 0.1 Last Vital Signs Temp 36.4 C L 10/02/19 10:00 Pulse 108 H 10/02/19 11:00 Resp 18 10/02/19 11:00 BP 115/58 L 10/02/19 11:00 Pulse Ox 93 L 10/02/19 11:00
--- NOTE | 2019-10-02 11:55 | PHARADMIT ---
Addendum entered by Darrick Redd III 10/03/19 11:56: VS-OK, Lytes, SCr, -OK H&H,Plts-down WBC-Up (on steroids) IV Flagyl & Levaquin to transition to P MD considering discharging patient home later today. Original Note: Admission Pharmacy Clinical Review Acute Asthma Exacerbation Code Status Full Code Current Weight 105.8 kg Renally Cleared and Narrow Therapeutic Index Meds CrCl ~74.4 QTc Value / Action Taken BP Control, Fever BP 115/58, HR 108, afebrile Electrolytes reviewed Na 143, K+ 4.3, Mag -- none DVT Prophylaxis LMWH 40mg Opiate Usage / Scheduled Bowel Regimen Ordered none, yes prn Plt/SCr for Heparin / Enoxaparin Plt 440, Scr 0.92 INR for Warfarin H/H stable, WBC/Bands H/H 15.6/47.5 Antibiotic appropriateness Levaquin 750 + Metronidazole Cultures and Sensitivities Flu negative Surgical ABX d/c within 24 hr DM control / Insulin Dosing Heart Failure (Check EF%) (KENN's, B-Block, Diuretics) IV to PO Switch Home Meds Reviewed Yes -- all ok Home Meds Not Ordered All ordered Comments Osat in 70s upon arrival to ED
[2019-10-02] MEDS: Albuterol/Ipratropium 3 ML UPD VIAL UPD ×3 (12:20→23:35)
[2019-10-02] MEDS: levoFLOXacin 750 MG/150 ML BAG 100 MG IVPB (13:03)
[2019-10-02] MEDS: Budesonide/Formoterol 160/4.5 6 GM 60 PUFF INH IH ×2 (13:32→20:13)
[2019-10-02] MEDS: metroNIDAZOLE 500 MG/100 ML BAG 100 MG IVPB ×2 (14:43→20:13)
[2019-10-02] MEDS: methylPREDNISolone SUCC 125 MG VIAL 80 MG IVP ×2 (14:48→22:06)
--- NOTE | 2019-10-02 17:51 | PDOC.CMIN ---
Care Management Initial Assess REASON FOR HOSPITALIZATION:: Acute Asthma Exacerbation PAST MEDICAL HISTORY/PAST SURGICAL HISTORY:: Asthma, GERD, Obesity-morbid: BMI 40.0-49.9, seasonal allergies, section, bilateral tubal ligation PREVIOUS FUNCTIONAL STATUS/SOCIAL/FAMILY SUPPORTS:: Ryann resides in [place], [place] with her , Chetan. Her mother resides nearby in [facility]. 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 She is independent at baseline with ADLs. CURRENT FUNCTIONAL STATUS:: Ryann is preparing for discharge and shares no concerns at this time. ADVANCE DIRECTIVES:: None on file at [facility]. Has patient been provided with information about the portal?: No Did the patient sign up for the portal?: No CODE STATUS:: Full Code INSURANCE COVERAGE / FINANCIAL ISSUES:: [employer] CURRENT HOME/COMMUNITY SERVICES/EQUIPMENT:: No current services. PRIMARY CARE PHYSICIAN:: Reese Barrera POTENTIAL DISCHARGE NEEDS:: Ryann will start a new PPI medication, per MD. Per RT, she will have a follow up PFT and possible overnight oximetry or sleep study scheduled upon discharge. PATIENT/FAMILY EDUCATION NEEDS:: Review discharge instructions, discuss Ask Me Three. ANTICIPATED BARRIERS TO DISCHARGE:: None identified at this time. TRANSPORTATION:: Via private vehicle with family. PLAN:: Ryann will discharge home with no additional services, with close follow up with RT, PCP and with new medications anticipated.
[2019-10-02] MEDS: Ibuprofen 600 MG TAB PO ×2 (18:42→23:34)
[2019-10-02] MEDS: Acetaminophen 325 MG TAB PO ×2 (18:43→23:35)
[2019-10-03] VITALS (33 sets, daily range): BP systolic 108–125; BP diastolic 57–66; PULSE 78–121; RESP 1–30; TEMP 36.6–37.3; O2SAT 91–97
[2019-10-03] MEDS: Normal Saline 1,000 ML 150 ML IV ×2 (00:23→06:48)
[2019-10-03] MEDS: metroNIDAZOLE 500 MG/100 ML BAG 100 MG IVPB ×3 (01:32→13:27)
[2019-10-03] MEDS: Albuterol/Ipratropium 3 ML UPD VIAL UPD ×2 (06:30→11:38)
[2019-10-03] MEDS: methylPREDNISolone SUCC 125 MG VIAL 80 MG IVP ×2 (06:30→13:28)
[2019-10-03 07:06] LABS: Lactate 1.5 mmol/L (0.6-1.4)
[2019-10-03 07:13] LABS: Anion Gap 9.4 mmol/L (3-11); BUN 11 mg/dL (7-18); CO2 23.6 mmol/L (21.0-32.0); CREATININE 0.72 mg/dL (0.55-1.02); Calcium 8.3 mg/dL (8.5-10.1); Chloride 111 mmol/L (98-107); Glucose 137 mg/dL (74-106); Magnesium 1.8 mg/dL (1.8-2.4); Potassium 4.3 mmol/L (3.5-5.1); Sodium 144 mmol/L (136-145)
[2019-10-03 07:17] LABS: Abs Immature Grans 0.06 k/cumm (0.0-0.09); Absolute Neutrophil Count 16.44 k/cumm (1.2-6.7); Basophils % 0.1; HCT 39.8 % (36.0-46.0); Immature Grans % 0.3 %; Lymphocytes % 7.6; Mean Corp. HGB Concentration 32.7 g/dL (32.0-36.0); Mean Corpuscular Hemoglobin 31.4 pg (27.0-33.0); Mean Corpuscular Volume 96.1 fL (80-95); Mean Platelet Volume 8.3 fL (8.0-11.0); Monocytes % 2.9; Neutrophils % 89.1; Platelet Count 330 x1000/uL (130-400); RBC 4.14 m/cumm (4.00-5.20); RBC Distribution Width 13.7 % (11.7-14.6); White Blood Cell Count 18.45 k/cumm (4.4-10.8)
[2019-10-03 07:25] LABS: Absolute Basophil Count 0.02 k/cumm (0.0-0.2); Absolute Monocyte Count 0.54 k/cumm (0.11-0.7)
[2019-10-03] MEDS: Ibuprofen 600 MG TAB PO (07:27)
[2019-10-03] MEDS: Acetaminophen 325 MG TAB PO ×2 (07:27→11:37)
[2019-10-03 07:41] LABS: Procalcitonin < 0.1 ng/mL
[2019-10-03] MEDS: Montelukast 10 MG TAB PO (08:13)
[2019-10-03] MEDS: Loratidine 10 MG TAB PO (08:13)
[2019-10-03] MEDS: Budesonide/Formoterol 160/4.5 6 GM 60 PUFF INH IH (08:14)
[2019-10-03] MEDS: Enoxaparin 40 MG/0.4 ML SYR SC (10:43)
[2019-10-03] MEDS: Pantoprazole 40 MG VIAL IVP (10:43)
[2019-10-03] MEDS: Normal Saline Flush 10 ML SYR IVP (10:43)
[2019-10-03] MEDS: levoFLOXacin 750 MG/150 ML BAG 100 MG IVPB (11:38)
--- NOTE | 2019-10-03 12:34 | DSE_ITS ---
Date of service: 10/03/19 Time of Service: 12:34 DS: Diagnosis Discharge Diagnosis (1) Asthma with acute exacerbation: Status: Acute (2) Acute respiratory failure with hypoxia: Status: Acute (3) GERD (gastroesophageal reflux disease): Status: Chronic (4) Seasonal allergies: Status: Chronic (5) Tooth abscess: Status: Acute (6) Discharge planning issues: Status: Acute (7) DVT prophylaxis: Status: Acute Discharge Plan Disposition Patient Disposition: HOME Condition: Improving Discharge Details Chief Complaint: RespSymp Clinical Impression: Acute respiratory failure, Asthma exacerbation Reason For Visit: ACUTE ASTHMA EXACERBATION Admit Date/Time: 10/02/19 08:32 Admit Provider: Tiffany Burnette Attending Provider: Tiffany Burnette Primary Care Provider: Reese Barrera ED Provider: Umair Nix [facility] Course Hospital Course: Patient presented the morning of October 02 and status asthmaticus. On presentation, she was cyanotic with oxygen saturation of 70% on room air. She was nasally treated with epinephrine along with magnesium, nebulizers, and Solu- Medrol. She was on BiPAP briefly. She did improve rather quickly and was on room air by later that morning, but was admitted to the ICU given her traumatic initial presentation. Patient was stable overnight on room air prior to discharge. It was cleared given the history that asthma triggers in the home were significant issue for the patient. Possible contributors include an older woodstove, pets, and humidity issues. We discussed possibly getting healthy homes evaluation. Allergy evaluation may also be considered. Patient also has notable history of recurrent severe exacerbations, but had not been regularly using controller medications. Reviewed importance of these medications and strategies to help her remember to take them. She also has outpatient PFTs villa eduled. She was discharged with a 9-day taper of prednisone. Loratadine was added to the patient's montelukast for allergy control. We discussed Advair should be taken twice a day rather than once. Increase dose Advair may be considered, but since the patient already had the inhaler this was not changed. It was felt GERD may be contribute to asthma. She was placed on a PPI at discharge, continuation per primary care discretion. Patient was concerned that clindamycin may have contributed to her presentation, though it was not signs of a classic allergic reaction. She was switched to lev ofloxacin and metronidazole for the oral infection and does have an appointment with the dentist to remove the tooth in question on 08 October. Apneic spells and some hypoxia was noted the night prior to discharge, consistent with possible obstructive sleep apnea. Consider outpatient sleep study. Home Meds and New Rx's Prescriptions: New loratadine 10 mg Tablet 10 mg PO DAILY Qty: 90 RF: 1 prednisone 20 mg tablet 60 mg PO DAILY 9 Days Qty: 18 RF: 0 levofloxacin 750 mg tablet 750 mg PO DAILY Qty: 5 RF: 0 metronidazole 500 mg tablet 500 mg PO TID Qty: 15 RF: 0 omeprazole 20 mg capsule,delayed release(DR/EC) 20 mg PO DAILY Qty: 14 RF: 0 Continued montelukast [Singulair] 10 MG tablet 10 mg PO DAILY RF: 0 albuterol sulfate [ProAir HFA] 200 PUFF HFA aerosol inhaler 2 puff Inhalation PRN PRNRF: 0 albuterol sulfate 2.5 mg /3 mL (0.083 %) solution for nebulization 1.25 mg IH QID PRN (Reason: shortness of breath or wheezing) Qty: 75 RF: 2 Changed fluticasone propion-salmeterol [Advair Diskus] 250-50 mcg/dose blister with device 2 inh IH BID Qty: 0 RF: 0 Discharge Instructions Instructions: Asthma (DC) Additional Instructions: - Make sure you are using your Advair inhaler twice a day and allergy medications regularly. - Do not forget follow-up pulmonary function tests - Consider healthy home evaluation and possibly allergy testing Activity:: Activity as Tolerated Equipment/Supplies:: No Equipment Needed Diet:: As Tolerated Discharge Orders Discharge Orders: Discharge Order (Routine); Ordered 10/03/19 Ordered By: Nimesh Austin DS: Summary Status at Discharge Functional status at discharge: independent ambulation Overall status at discharge: patient is back to baseline Mental Status: mental status grossly normal Speech and Movement: speech and movement normal Mood: congruent mood Affect: anxious affect Exam Narrative Exam Narrative: General: A&O, laying comfortably in bed, speaking in full sentences Neuro:A&Ox3, no focal deficits Psych: mildly anxious, appropriate speech pattern/content Skin: visible skin intact; no rashes or hives HEENT: Moist mucous membranes; Abscessed tooth L maxilla. No facial redness or swelling. Conjunctive are clear. Heart: RRR, tachycardic, no m/r/g Lungs: Slightly diminished diffusely, but no wheezes or rales, airflow throughout. Abdomen: soft, nontender, nondistended Extremities: no e/c/c BLE's. Psych Mental Status: mental status grossly normal Speech and Movement: speech and movement normal Mood: congruent mood Affect: anxious affect DS: Data Vitals/I&O Vitals and I&O: Vital Signs Temperature 37.0 C 10/03/19 11:49 Temperature Source Temporal Artery Scan 10/03/19 11:49 Pulse 99 H 10/03/19 11:49 Pulse Rhythm Regular 10/02/19 07:17 Pulse 99 H 10/03/19 11:33 Respiratory Rate 22 10/03/19 11:49 Respiratory Effort 10/03/19 11:49 Respiratory Depth Normal 10/03/19 11:49 Respiratory Pattern Normal 10/03/19 11:49 Blood Pressure 117/65 10/03/19 11:49 Blood Pressure Mean 82 10/03/19 11:49 Blood Pressure Position Supine 10/02/19 21:30 Pulse Oximetry 97 10/03/19 11:49 Oxygen Delivery Method Room Air 10/03/19 11:49 Oxygen Flow Rate 0 10/03/19 11:49 Fraction of Inspired Oxygen (FIO2) 30 10/02/19 07:28 Pain Level 3 10/03/19 11:49 Comment 10/02/19 06:25 Intake & Output 10/02/19 10/03/19 10/03/19 23:59 11:59 23:59 Intake Total 2736.0 / 2736.0 2567.5 / 2567.5 Output Total 1800 / 2225 850 / 850 Balance 936.0 / 511.0 1717.5 / 1717.5 Weight 107.7 kg Intake: IV 1636.0 / 1636.0 1807.5 / 1807.5 Oral 1100 / 1100 760 / 760 Output: Urine 1800 / 2225 850 / 850 Other: Urine Color Pale Yellow Yellow Urine Appearance Clear Clear Urine Odor None None Comment oob to void 350cc's of clear, light colored yellow urine with sg of 1.020. Trace +for blood OOB this am independently, voided 200 cc clear, yellow urine. Stool Size Small Stool Characteristics Soft Formed Voiding Methods Bedside Commode Bedside Commode Data Completed and Pending Labs on day of discharge: Labs from last 24 hours 10/03/19 10/03/19 10/03/19 06:56 06:56 06:56 WBC 18.45 H RBC 4.14 Hgb 13.0 D Hct 39.8 MCV 96.1 H MCH 31.4 MCHC 32.7 RDW 13.7 Plt Count 330 D MPV 8.3 Immature Gran % 0.3 Neutrophils % 89.1 Lymphocytes % 7.6 Monocytes % 2.9 Eosinophils % 0.0 Basophils % 0.1 Absolute Neutrophils 16.44 H Absolute Lymphocytes 1.40 Absolute Monocytes 0.54 Absolute Eosinophils 0.00 Absolute Basophils 0.02 Sodium 144 Potassium 4.3 Chloride 111 H Carbon Dioxide 23.6 Anion Gap 9.4 BUN 11 Creatinine 0.72 Estimated GFR/1.73 m2 >= 60.00 Glucose 137 H Lactate 1.5 H Calcium 8.3 L Magnesium 1.8 Procalcitonin < 0.1 PFSH Medical History (Updated 10/02/19 @ 12:19 by Tiffany Burnette MD) Asthma (Chronic) GERD (gastroesophageal reflux disease) (Chronic) Obesity, morbid, BMI 40.0-49.9 (Acute) Seasonal allergies (Chronic) Surgical History H/O section (Chronic) History of bilateral tubal ligation (Acute) Family History (Updated 10/02/19 @ 11:59 by Tiffany Burnette MD) Maternal Grandfather Hypertension Maternal Aunt Hypertension Maternal Uncle Diabetes Lung cancer Maternal Uncle Diabetes Maternal Grandmother Diabetes Mother Prediabetes Social History Smoking/Tobacco Use Status: Never Alcohol Intake: never Drug use: Never Substance use type: does not use Do you feel safe in your relationship?: Yes
[2019-10-03] MEDS: predniSONE 40 MG, predniSONE 10 MG 50 MG PO (12:56)
== END 2019-10-03 14:50 | disposition home or self-care (01) | DRG 202 ==
LOC: ER 08:46 → ICU 09:28
PROVIDERS: Student in an Organized Health Care Education/Training Program; Admitting Provider Internal Medicine; Emergency Provider Emergency Medicine; PCP Family Medicine; Visit Provider Family Medicine
DX: J45.902 Unspecified asthma with status asthmaticus (principal); J96.01 Acute respiratory failure with hypoxia; Z68.41 Body mass index [BMI] 40.0-44.9, adult; K21.9 Gastro-esophageal reflux disease without esophagitis; K04.7 Periapical abscess without sinus; G47.33 Obstructive sleep apnea (adult) (pediatric); E66.01 Morbid (severe) obesity due to excess calories; Z23 Encounter for immunization
CPT/HCPCS: 36415; 80048; 80053; 82805; 84145; 87449; 94640; 96365; 96366; 96372; 96375; 99239; 99291; J1650; 36600; 71045; 83605; 83735; 85025; J0171; J1956; J2405; J2930; J7512; J7611; J7620

== ENCOUNTER 2019-10-03 15:48 | Emergency (ER) | payer BC, SELFPAY ==
[2019-10-03 15:53] VITALS: BP 126/88; PULSE 107; RESP 22; TEMP 37.4; O2SAT 95
--- NOTE | 2019-10-03 15:56 | W.ED.GENAD ---
Discharge Plan Disposition Patient Disposition: HOME Condition: Good Discharge Details Chief Complaint: Cellulitis Clinical Impression: Hand swelling Primary Care Provider: Reese Barrera ED Provider: Joseline Schneider Home Meds and New Rx's Prescriptions: Continued montelukast [Singulair] 10 MG tablet 10 mg PO DAILY RF: 0 albuterol sulfate [ProAir HFA] 200 PUFF HFA aerosol inhaler 2 puff Inhalation PRN PRNRF: 0 loratadine 10 mg Tablet 10 mg PO DAILY Qty: 90 RF: 1 prednisone 20 mg tablet 60 mg PO DAILY 9 Days Qty: 18 RF: 0 levofloxacin 750 mg tablet 750 mg PO DAILY Qty: 5 RF: 0 metronidazole 500 mg tablet 500 mg PO TID Qty: 15 RF: 0 omeprazole 20 mg capsule,delayed release(DR/EC) 20 mg PO DAILY Qty: 14 RF: 0 fluticasone propion-salmeterol [Advair Diskus] 250-50 mcg/dose blister with device 2 inh IH BID Qty: 0 RF: 0 albuterol sulfate 2.5 mg /3 mL (0.083 %) solution for nebulization 1.25 mg IH QID PRN (Reason: shortness of breath or wheezing) Qty: 75 RF: 2 Discharge Instructions Instructions: Swollen Joint (ED) Additional Instructions: Encourage rest, ice, elevation. Please follow discharge instructions. Compression can help with the swelling in her hand. If you develop fever/chills, rash, pain, discoloration or other new/worsening symptoms please seek care urgently once again. Otherwise, please keep your upcoming appointments. Referrals: Reese Barrera [Primary Care Provider] - Discharge Data Discharge Date/Time-TO BE ENTERED AT DEPARTURE: 10/03/19 16:23 Medical Decision Making Patient is a 34-year-old [id number] female presents today for evaluation of her right hand. She reports that she was discharged 1 hour prior to arrival. She had been admitted over the past 24 hours for status asthmaticus. Has had vast improvement was discharged home. She states that after removal of the IV, which was in the right AC, she began noting swelling in the right hand. She also reports that she received a Pneumovax seen in the right arm as well. Is concerned that this may be causing the swelling. She denies any pain. No fevers or chills. Has not noted any erythema. No discoloration. On exam, patient is resting comfortably. She does have swelling swelling of the right hand and fingers. She has good capillary refill, intact pulses. No cyanosis, discoloration. No palpable cord. No pain along the length of the LUE. Full range of motion. No erythema, warmth or drainage from the IV or injection site. At this point, I do not believe that this is associated with emergent syndrome. I see no evidence to suggest a DVT, infection or other emergent etiology. Rather, this is suspected to be from her recent admission, fluid administration. She was given strict return precautions. I encouraged rest, ice, elevation. She has appointments set up for follow-up. I encouraged she follow discharge instructions. All of her questions and concerns were addressed and she is in agreement this plan. HPI General Mode of arrival: ambulatory. Date/Time Provider Initiated Documentation: 10/03/19 15:50. Limitations to Documentation: no limitations. Information obtained by: patient, family (mother) and RN notes reviewed. History of Present Illness 34 year old F presents to the emergency department with the chief complaint of right hand swelling, Quality is described as other (tingling), and is localized to the right and upper extremity. Patient reports no radiation. Patient started experiencing this hour(s) (1) and it has been constant. No relieving factors improve symptom(s), No exacerbating factors reported . Patient notes no other symptoms.. Patient did receive the following treatments prior to arrival, none Related Data Home Medications Medication Instructions Recorded Confirmed albuterol sulfate [ProAir HFA] 2 puff INHALATION PRN PRN 07/30/16 10/03/19 montelukast [Singulair] 10 mg PO DAILY 07/30/16 10/03/19 albuterol sulfate 1.25 mg IH QID PRN #75 ml 10/03/19 10/03/19 fluticasone propion-salmeterol 2 inh IH BID #0 ea 10/03/19 10/03/19 [Advair Diskus] levofloxacin 750 mg PO DAILY #5 tab 10/03/19 10/03/19 loratadine 10 mg PO DAILY #90 tab 10/03/19 10/03/19 metronidazole 500 mg PO TID #15 tab 10/03/19 10/03/19 omeprazole 20 mg PO DAILY #14 cap 10/03/19 10/03/19 prednisone 60 mg PO DAILY 9 Days #18 tab 10/03/19 10/03/19 Previous Rx's Medication Instructions Recorded albuterol sulfate 1.25 mg IH QID PRN #75 ml 10/03/19 fluticasone propion-salmeterol 2 inh IH BID #0 ea 10/03/19 [Advair Diskus] levofloxacin 750 mg PO DAILY #5 tab 10/03/19 loratadine 10 mg PO DAILY #90 tab 10/03/19 metronidazole 500 mg PO TID #15 tab 10/03/19 omeprazole 20 mg PO DAILY #14 cap 10/03/19 prednisone 60 mg PO DAILY 9 Days #18 tab 10/03/19 Allergies Allergy/AdvReac Type Severity Reaction Status Date / Time Penicillins Allergy Mild Skin Rash Unverified 10/03/19 15:55 bee pollen AdvReac Severe Anaphylaxsi Unverified 10/03/19 15:55 s pet dender Allergy Mild Itching Uncoded 10/03/19 15:55 mold AdvReac Severe Anaphylaxsi Uncoded 10/03/19 15:55 s General Stated Complaint: Cellulitis DAYO: 4 Review of Systems Constitutional Constitutional: Reports as per HPI, Denies chills, Denies fever(s), Denies headache(s) and Denies weakness ENT Ears, Nose, Mouth, and Throat: Denies headache(s) Cardiovascular Cardiovascular: Reports as per HPI Respiratory Respiratory: Reports as per HPI and Denies cough Musculoskeletal Musculoskeletal: Reports as per HPI and Reports tingling Integumentary/Breasts Skin/Breast: Reports as per HPI, Denies rash and Denies wounds Neurologic Neurologic: Reports as per HPI, Denies headache(s), Reports tingling, Denies paresthesias and Denies weakness [facility] Medical History Asthma (Chronic) GERD (gastroesophageal reflux disease) (Chronic) Obesity, morbid, BMI 40.0-49.9 (Acute) Seasonal allergies (Chronic) Surgical History H/O section (Chronic) History of bilateral tubal ligation (Acute) Family History (Updated 10/02/19 @ 11:59 by Tiffany Burnette MD) Maternal Grandfather Hypertension Maternal Aunt Hypertension Maternal Uncle Diabetes Lung cancer Maternal Uncle Diabetes Maternal Grandmother Diabetes Mother Prediabetes Social History Smoking/Tobacco Use Status: Never Alcohol Intake: never Drug use: Never Substance use type: does not use Do you feel safe in your relationship?: Yes Exam Const General: cooperative, healthy appearing, comfortable, no acute distress, well developed and well groomed Nutritional Appearance: average body habitus and well nourished Orientation: alert and awake Resp Effort & Inspection: normal respiratory effort, able to speak in complete sentences and no respiratory distress Cardio Rate: regular rate Rhythm: regular rhythm Skin General skin exam: no rashes or lesions noted Lesions: no lesions Rashes: no rashes Trauma: no lacerations or abrasions Neuro General: alert and awake Cognition: normal cognition Speech: speech normal Gait: normal gait Motor: muscle tone normal throughout Sensory Exam: no sensory deficits noted Extrem Right upper extremity: full ROM, normal capillary refill, shoulder/upper arm (injection site from recent pneumovax noted, no erythema, warmth, drainage) Details: normal to inspection, axillary nerve sensory function normal and normal ROM; no tenderness, no swelling, no deformity and no unusual warmth, elbow/forearm (IV site without signs of infection) Details: normal to inspection and normal ROM; no tenderness and no swelling, wrist Details: normal to inspection and normal ROM; no tenderness and no swelling and hand Details: normal capillary refill, neuromotor exam normal, neurosensory exam normal, normal ROM of fingers and swelling; abnormal to inspection (swelling in fingers), no tenderness, no unusual warmth, no ecchymosis and no crepitus; abnormal to inspection (swelling of the fingers on the right hand) and no cyanosis Psych Appearance: grossly normal and well kempt Mental Status: mental status grossly normal Speech and Movement: speech and movement normal Course Vital Signs Vital signs: Vital Signs Temperature 37.4 C 10/03/19 15:53 Pulse 107 H 10/03/19 15:53 Respiratory Rate 22 10/03/19 15:53 Blood Pressure 126/88 10/03/19 15:53 Pulse Oximetry 95 10/03/19 15:53 Temperature 37.4 C 10/03/19 15:53 Temperature Source Skin 10/03/19 15:53 Pulse 107 H 10/03/19 15:53 Respiratory Rate 22 10/03/19 15:53 Blood Pressure 126/88 10/03/19 15:53 Blood Pressure Position Sitting 10/03/19 15:53 Pulse Oximetry 95 10/03/19 15:53 Oxygen Delivery Method Room Air 10/03/19 15:53 Oxygen Flow Rate 0 10/03/19 15:53
== END 2019-10-03 16:23 | disposition home or self-care (01) ==
PROVIDERS: Emergency Provider Physician Assistant; PCP Family Medicine
DX: T82.898A Other specified complication of vascular prosthetic devices, implants and grafts, initial encounter (principal); R60.0 Localized edema; Y84.8 Other medical procedures as the cause of abnormal reaction of the patient, or of later complication, without mention of misadventure at the time of the procedure
CPT/HCPCS: 99282

== ENCOUNTER 2019-10-23 02:06 | Outpatient (CLI) | payer BC, SELFPAY ==
--- NOTE | 2019-10-23 09:29 | PFT_ITS ---
PULMONARY FUNCTION TEST REPORT DATE OF SERVICE: October 23, 2019 REQUESTING PROVIDER: Reese Barrera M.D. Spirometry shows severe obstructive airways disease with significant bronchodilator response. Lung volumes show no evidence of restriction. There is mild to moderate hyperinflation and air trapping. Diffusion capacity normal. Airways resistance elevated. IMPRESSION: Very severe obstructive airways disease with significant bronchodilator response. This is associated with mild to moderate hyperinflation and air trapping and elevated airways resistance. Clinical correlation recommended. SARA/peter D/
[2019-10-23] MEDS: Inhaler, Assist Device 1 EACH MC (11:02)
[2019-10-23] MEDS: Albuterol HFA 18 GM 200 PUFF INH IH (11:02)
== END 2019-10-23 02:26 ==
PROVIDERS: PCP Family Medicine; Visit Provider Radiology Radiation Oncology
DX: R06.02 Shortness of breath (principal); R06.2 Wheezing; Z77.22 Contact with and (suspected) exposure to environmental tobacco smoke (acute) (chronic); J98.8 Other specified respiratory disorders
CPT/HCPCS: 94060; 94726; 94729

== ENCOUNTER 2020-06-12 04:50 | Emergency (ER) | payer BC, SELFPAY ==
--- NOTE | 2020-06-12 04:52 | ED.GENADUL_ITS ---
Discharge Plan Disposition Patient Disposition: HOME Condition: Good Discharge Details Clinical Impression: Acute right-sided thoracic back pain Primary Care Provider: Reese Barrera ED Provider: Rudolph Olvera [place] Meds and New Rx's Prescriptions: New ibuprofen 600 mg tablet 600 mg PO Q8H PRNQty: 15 RF: 0 cyclobenzaprine 10 mg tablet 10 mg PO Q8H PRN (Reason: Spasms) Qty: 15 RF: 0 lidocaine 5 % adhesive patch,medicated 1 patch topical DAILY Qty: 15 RF: 0 Continued montelukast [Singulair] 10 MG tablet 10 mg PO DAILY RF: 0 albuterol sulfate [ProAir HFA] 200 PUFF HFA aerosol inhaler 2 puff Inhalation PRN PRNRF: 0 loratadine 10 mg Tablet 10 mg PO DAILY Qty: 90 RF: 1 fluticasone propion-salmeterol [Advair Diskus] 250-50 mcg/dose blister with device 2 inh IH BID Qty: 0 RF: 0 albuterol sulfate 2.5 mg /3 mL (0.083 %) solution for nebulization 1.25 mg IH QID PRN (Reason: shortness of breath or wheezing) Qty: 75 RF: 2 prednisone 20 mg Tablet 40 mg PO DAILY RF: 0 Discharge Instructions Instructions: Back Pain (ED) Additional Instructions: Medications as prescribed. Activity as tolerated. Heat and gentle stretching. Follow-up with primary care if not better by end of week. Return to ED for fever, increasing shortness of breath, chest pain, abdominal pain, other concerns. Stand Alone Forms: Work Release Referrals: Reese Barrera [Primary Care Provider] - Medical Decision Making Patient presenting with right lower thoracic back pain that occurred when coughing. Is unable to get comfortable or move because of pain. Does not feel short of breath. Has wheezing and cough due to asthma exacerbation. She has no abdominal tenderness on exam. She has no chest tenderness. She has tenderness to palpation posterior lateral inferior rib margins. Significant pain with movement. Likely musculoskeletal in nature. Will give IM Toradol, p.o. Flexeril, topical lidocaine and obtain chest x-ray and urine. 06:30 - CXR negative for pneumothorax or infiltrate. No obvious rib fractures. Patient will medications. Able to clear her throat and cough a little as well as move better. Patient comfortable with discharge with prescriptions for ibuprofen, cyclobenzaprine, lidocaine patch. Off work for the next couple of days. Heat, gentle massage and stretching. Follow-up with primary care if not getting better over the next few days. Return to the ED for fever, increasing shortness of breath, uncontrolled pain, abdominal pain, other concerns. HPI General Mode of arrival: wheelchair . Date/Time Provider Initiated Documentation: 06/12/20 04:52 . Limitations to Documentation: no limitations . Information obtained by: patient and RN notes reviewed . HPI Narrative: Patient presents to ED with right sided thoracic back pain. Patient coughed last evening and developed severe pain with the cough. She has not had increase in shortness of breath at all. She has cough and wheezing from asthma e xacerbation. She is on prednisone. She has tested negative for COVID with the result returning yesterday. She is not having chest pain. She is not having abdominal pain, nausea or vomiting. She took ibuprofen last night after it happened. She is unable to move at all because of pain with movement. She denies urinary symptoms. Related Data Home Medications Medication Instructions Recorded Confirmed albuterol sulfate [ProAir HFA] 2 puff INHALATION PRN PRN 07/30/16 06/12/20 montelukast [Singulair] 10 mg PO DAILY 07/30/16 06/12/20 albuterol sulfate 1.25 mg IH QID PRN #75 ml 10/03/19 06/12/20 fluticasone propion-salmeterol 2 inh IH BID #0 ea 10/03/19 10/03/19 [Advair Diskus] loratadine 10 mg PO DAILY #90 tab 10/03/19 06/12/20 cyclobenzaprine 10 mg PO Q8H PRN #15 tab 06/12/20 ibuprofen 600 mg PO Q8H PRN #15 tab 06/12/20 lidocaine 1 patch TOPICAL DAILY #15 ea 06/12/20 prednisone 40 mg PO DAILY 06/12/20 06/12/20 Previous Rx's Medication Instructions Recorded albuterol sulfate 1.25 mg IH QID PRN #75 ml 10/03/19 fluticasone propion-salmeterol 2 inh IH BID #0 ea 10/03/19 [Advair Diskus] loratadine 10 mg PO DAILY #90 tab 10/03/19 cyclobenzaprine 10 mg PO Q8H PRN #15 tab 06/12/20 ibuprofen 600 mg PO Q8H PRN #15 tab 06/12/20 lidocaine 1 patch TOPICAL DAILY #15 ea 06/12/20 Allergies Allergy/AdvReac Type Severity Reaction Status Date / Time Penicillins Allergy Mild Skin Rash Unverified 06/12/20 05:06 bee pollen AdvReac Severe Anaphylaxsi Unverified 06/12/20 05:06 s pet dender Allergy Mild Itching Uncoded 06/12/20 05:06 mold AdvReac Severe Anaphylaxsi Uncoded 06/12/20 05:06 s General DAYO: 4 Review of Systems Narrative: As documented in HPI otherwise negative as below. Const: no fever, chills, weakness Resp: no SOB, pleuritic pain CV: no CP, diaphoresis, edema, syncope GI: no abdominal pain, nausea, vomiting, diarrhea Neuro: no headache, numbness, focal weakness, confusion PFSH Medical History (Updated 06/12/20 @ 06:36 by Rudolph Olvera MD) Asthma GERD (gastroesophageal reflux disease) Obesity, morbid, BMI 40.0-49.9 Seasonal allergies Surgical History H/O section History of bilateral tubal ligation Family History (Updated 10/02/19 @ 11:59 by Tiffany Burnette MD) Maternal Grandfather Hypertension Maternal Aunt Hypertension Maternal Uncle Diabetes Lung cancer Maternal Uncle Diabetes Maternal Grandmother Diabetes Mother Prediabetes Social History Smoking/Tobacco Use Status: Never Alcohol Intake: current Alcohol Intake frequency: a few times a week Alcohol type: wine Drug use: Occasionally Substance use type: does not use, marijuana and other Do you feel safe at home: Yes Do you feel safe in your relationship?: Yes Exam Narrative Exam Narrative: Vitals: Afebrile with normal vitals and room air pulse ox. Const: Obese female in NAD. HEENT: NC/AT. Normal facial exam. Eyes: Normal conjunctiva and sclera. Neck: Supple. Trachea midline. Lungs: Normal respiratory effort. Lungs good air exchange but wheezing. Cor: RRR without murmur/gallop. Good radial pulses. GI: Soft. NT/ND. No guarding or rebound. Back: No CVAT. Pain with palpation along the posterior and lateral inferior ribs on the right. Neuro: A+O x 3. Normal speech, mentation, gait. Cranial nerves II - XII grossly intact. No gross motor or sensory deficit. Ext: No C/C/E. Skin: Warm and dry without rash.
[2020-06-12 04:58] VITALS: BP 133/87; PULSE 80; RESP 20; TEMP 37.7; O2SAT 97
--- NOTE | 2020-06-12 05:00 | DI.RAD_ITS ---
EXAM: XR CHEST 2V PA LATERAL CLINICAL HISTORY: right thoracic back pain TECHNIQUE: 2D digital imaging was performed. COMPARISON: CR,XR XR PORTABLE CHEST AP from 10/02/2019 FINDINGS: MEDIASTINUM: Normal. HEART: Normal. PULMONARY VASCULATURE: Normal. LUNGS: No focal consolidating infiltrates. PLEURAL SPACE: No pleural effusion or pneumothorax. BONE:Within normal limits for the patient's age. OTHER FINDINGS:Normal. IMPRESSION: No acute pulmonary findings. DATA REPOSITORY: RADIATION DOSE DELIVERED:
[2020-06-12] MEDS: Lidocaine 5% Patch 1 PATCH TP (05:21)
[2020-06-12] MEDS: Cyclobenzaprine 10 MG TAB PO (05:23)
[2020-06-12] MEDS: Ketorolac 30 MG/ML VIAL IM (05:25)
--- NOTE | 2020-06-12 05:57 | DI.VRAD_ITS ---
PROCEDURE INFORMATION: Exam: XR Chest, 2 Views Exam date and time: 06/12/2020 5:44 AM Age: 35 years old Clinical indication: Other: R thoracic back pain; Patient HX: Right thoracic back pain TECHNIQUE: Imaging protocol: XR of the chest Views: 2 views. COMPARISON: CR XR PORTABLE CHEST AP 10/02/2019 6:47 AM FINDINGS: Lungs: Mild chronic interstitial prominence, grossly stable. No consolidation. Pleural space: No pleural effusion. No pneumothorax. Heart/Mediastinum: Grossly stable. Bones/joints: Grossly stable Mild gaseous distension in the left upper quadrant IMPRESSION: No radiographic evidence for pneumonia Mild non-specific gaseous distention in the left upper quadrant. Further evaluation of the abdomen and pelvis as clinically indicated Dictated and Authenticated by: Abrahan Lopez MD. Ordering:JANA Galdamez MD
[2020-06-12 06:46] VITALS: BP 125/69; PULSE 81; RESP 16; TEMP 37.2; O2SAT 98
== END 2020-06-12 06:50 | disposition home or self-care (01) ==
LOC: ER 06:43
PROVIDERS: Emergency Provider Emergency Medicine; PCP Family Medicine
DX: M54.6 Pain in thoracic spine (principal); J45.901 Unspecified asthma with (acute) exacerbation; Z03.818 Encounter for observation for suspected exposure to other biological agents ruled out
CPT/HCPCS: 96372; 99284; 71046; J1885

== ENCOUNTER 2022-08-09 15:56 | Emergency (ER) | payer BC, SELFPAY ==
[2022-08-09] VITALS (13 sets, daily range): BP systolic 133–136; BP diastolic 70–82; PULSE 105–116; RESP 20–22; TEMP 36.5; O2SAT 90–97
--- NOTE | 2022-08-09 16:44 | ED.GENADUL_ITS ---
Discharge Plan Disposition Patient Disposition: Home Condition: Stable Discharge Details Clinical Impression: Acute asthma exacerbation Primary Care Provider: Reese Barrera ED Provider: Mayur Ibarra Home Meds and New Rx's Prescriptions: New prednisone 20 mg tablet 40 mg PO DAILY Qty: 8 0RF Continued montelukast [Singulair] 10 MG tablet 10 mg PO DAILY albuterol sulfate [ProAir HFA] 200 PUFF HFA aerosol inhaler 2 puff Inhalation PRN PRN loratadine 10 mg Tablet 10 mg PO DAILY Qty: 90 1RF fluticasone propion-salmeterol [Advair Diskus] 250-50 mcg/dose blister with device 2 inh IH BID Qty: 0 0RF Trelegy Ellipta 200-62.5-25 mcg blister with device 1 ea INHALATION DAILY Label Comments: INHALE 1 PUFF BY MOUTH EVERY DAY albuterol sulfate 2.5 mg /3 mL (0.083 %) solution for nebulization 1.25 mg IH QID PRN (Reason: shortness of breath or wheezing) Qty: 75 2RF Discharge Instructions Instructions: Asthma (ED) Additional Instructions: Use albuterol neb or inhaler (2 puffs) as prescribed every 4 hours over the next few days for wheezing. Take prednisone as prescribed. Please contact your primary care physician to arrange follow-up. Return to the ER immediately for any worsening or new concerning symptoms. Referrals: Reese Barrera [Primary Care Provider] - Medical Decision Making 37-year-old female with history of asthma here with shortness of breath and wheezing since last night. Symptoms consistent with prior asthma exacerbations. Patient was given prednisone 30 mg here in addition to the 30 mg she took this prior to arrival. Patient treated with 2 duo nebs and reassessed and had significant improvement in symptoms. Patient was reassessed breathing easily with only subtle expiratory wheeze. Plan for discharge with outpatient follow- up with PCP. I will prescribe burst of prednisone. I ensured patient has sufficient supply of albuterol inhaler with spacer as well as neb treatments. Disposition decision was made weighing the risks and benefits of hospitalization versus outpatient treatment, the risk for further decompensation, and the patient's wishes. The patient was stable and requested discharge. Prior to discharge, my usual and customary return precautions were reviewed with the patient - this included follow-up instructions and reason to return to the emergency department if condition worsens, does not improve as expected, or other new concerns arise. Sign Out No HPI General Mode of arrival: ambulatory . Date/Time Provider Initiated Documentation: 08/09/22 16:26 . Limitations to Documentation: no limitations . Information obtained by: patient . HPI Narrative: 37-year-old female with history of asthma, here with chief complaint of acute asthma exacerbation. Patient notes shortness of breath that started last night and has persisted. She took 30 mg of prednisone that was leftover from prior prescription just prior to arrival. She has been using albuterol inhaler without resolution. Symptoms flared up this afternoon and severe just on arrival. She notes wheeze and trouble breathing. No chest pain. No leg swelling. No calf pain. Related Data Home Medications Medication Instructions Recorded Confirmed albuterol sulfate 90 mcg/actuation 2 puff inhalation PRN PRN 07/30/16 08/09/22 aerosol inhaler (ProAir HFA) montelukast 10 mg tablet 10 mg PO DAILY 07/30/16 08/09/22 (Singulair) fluticasone 250 mcg-salmeterol 50 2 inh inhalation BID #0 ea 10/03/19 08/09/22 mcg/dose blistr powdr for inhalation (Advair Diskus) loratadine 10 mg tablet 10 mg PO DAILY #90 tabs 10/03/19 08/09/22 albuterol sulfate 2.5 mg/3 mL 1.25 mg (1.5 mL) inhalation QID 08/09/22 (0.083 %) solution for nebulization PRN shortness of breath or wheezing #75 mL fluticasone fur. 200 mcg-umeclid 1 ea inhalation DAILY 08/09/22 08/09/22 62.5 mcg-vilant 25 mcg inhalat.powder (Trelegy Ellipta) prednisone 20 mg tablet 40 mg PO DAILY #8 tabs 08/09/22 Previous Rx's Medication Instructions Recorded fluticasone 250 mcg-salmeterol 50 2 inh inhalation BID #0 ea 10/03/19 mcg/dose blistr powdr for inhalation (Advair Diskus) loratadine 10 mg tablet 10 mg PO DAILY #90 tabs 10/03/19 albuterol sulfate 2.5 mg/3 mL 1.25 mg (1.5 mL) inhalation QID 08/09/22 (0.083 %) solution for nebulization PRN shortness of breath or wheezing #75 mL prednisone 20 mg tablet 40 mg PO DAILY #8 tabs 08/09/22 Allergies Allergy/AdvReac Type Severity Reaction Status Date / Time Penicillins Allergy Mild Skin Rash Unverified 08/09/22 17:55 bee pollen AdvReac Severe Anaphylaxsi Unverified 08/09/22 17:55 s pet dender Allergy Mild Itching Uncoded 08/09/22 17:55 mold AdvReac Severe Anaphylaxsi Uncoded 08/09/22 17:55 s General Stated Complaint: RespSymp DAYO: 3 Review of Systems All systems reviewed & are unremarkable except as noted in HPI and below Constitutional Constitutional: Denies fever(s) Respiratory Respiratory: Reports as per HPI PFSH All Active Problems Acute asthma exacerbation (Acute) Tooth abscess (Acute) Discharge planning issues (Acute) DVT prophylaxis (Acute) Acute respiratory failure with hypoxia (Acute) Asthma with acute exacerbation (Acute) Seasonal allergies (Chronic) Obesity, morbid, BMI 40.0-49.9 (Acute) GERD (gastroesophageal reflux disease) (Chronic) Medical History Asthma Surgical History H/O section History of bilateral tubal ligation Family History Maternal Grandfather Hypertension Maternal Aunt Hypertension Maternal Uncle Diabetes Lung cancer Maternal Uncle Diabetes Maternal Grandmother Diabetes Mother Prediabetes Social History Smoking/Tobacco Use Status: Never Smoking risk assessment performed?: Yes Alcohol Intake: current Alcohol Intake frequency: a few times a week Alcohol type: wine Drug use: Occasionally Substance use type: does not use Do you feel safe at home: Yes Do you feel safe in your relationship?: Yes Exam Const General: cooperative and no acute distress HENMT Mouth: moist mucous membranes Eyes Conjunctivae: normal conjunctivae Sclera: normal sclerae EOM: EOM intact bilaterally Neck Neck: trachea midline and supple Resp Effort & Inspection: labored and tachypneic Auscultation: no rales, no rhonchi and wheezes Cardio Rate: regular rate and not tachycardic Rhythm: regular rhythm Heart Sounds: no murmurs GI Palpation: soft, not firm, no guarding, no masses, not rigid and nontender Skin General skin exam: no rashes or lesions noted Neuro General: patient alert, patient awake and tone normal Extrem General: no pedal edema, no calf tenderness and no edema Psych Appearance: grossly normal Mental Status: mental status grossly normal Course Vital Signs Vital signs: Vital Signs Temperature 36.5 C 08/09/22 15:59 Pulse 116 H 08/09/22 15:59 Respiratory Rate 22 08/09/22 15:59 Blood Pressure 136/82 08/09/22 15:59 Pulse Oximetry 95 08/09/22 15:59 Temperature 36.5 C 08/09/22 15:59 Temperature Source Temporal Artery Scan 08/09/22 15:59 Pulse 116 H 08/09/22 15:59 Respiratory Rate 22 08/09/22 15:59 Respiratory Effort Labored 08/09/22 16:05 Blood Pressure 136/82 08/09/22 15:59 Blood Pressure Position Sitting 08/09/22 15:59 Pulse Oximetry 95 08/09/22 15:59 Oxygen Delivery Method Room Air 08/09/22 15:59 Oxygen Flow Rate 0 08/09/22 15:59 Pain Level 0 08/09/22 15:59
[2022-08-09] MEDS: predniSONE 10 MG TAB 30 MG PO (17:04)
[2022-08-09 17:05] LABS: Source Nasal/Nares
[2022-08-09] MEDS: Albuterol/Ipratropium 3 ML UPD VIAL UPD ×2 (17:05→17:06)
[2022-08-09 17:37] LABS: COVID-19 PCR Negative (Negative)
--- NOTE | 2022-08-09 18:08 | NUR.NOTE ---
Nursing Note: Pt states nebulizer was helpful and she feels much better
== END 2022-08-09 18:59 | disposition home or self-care (01) ==
PROVIDERS: Emergency Provider Student in an Organized Health Care Education/Training Program; PCP Family Medicine
DX: J45.901 Unspecified asthma with (acute) exacerbation (principal)
CPT/HCPCS: 87635; 94640; 99283; J7512; J7620

== ENCOUNTER 2023-08-01 06:14 | Observation (INO) | payer SELFPAY ==
[2023-08-01] VITALS (8 sets, daily range): BP systolic 97–110; BP diastolic 61–73; PULSE 96–140; RESP 5–28; TEMP 36.5–37.1; O2SAT 92–98
[2023-08-01] MEDS: Levalbuterol 1.25 MG/3 ML UPD VIAL ×2 (07:30→10:37)
[2023-08-01] MEDS: Ipratropium 0.5 MG/2.5 ML UPD VIAL (07:30)
--- NOTE | 2023-08-01 09:00 | RT.EKG_ITS ---
APPROVED REPORT Exam: Resting ECG Reason for Exam: respiratory distress Patient Location: E HR:109 bpm ECG Measurements Heart Rate 109 AXIS OR 133 P 71 QRSd 96 QRS 69 QT 364 T 48 QTc 490 Conclusion Sinus tachycardia...rate> 99 ST, slight ST depression, II, aVF, normal intervals, no STEMI, no previous available for comparison.
--- NOTE | 2023-08-01 09:08 | DI.RAD_ITS ---
Exam(s) XR PORTABLE CHEST AP EXAM: XR PORTABLE CHEST AP CLINICAL HISTORY: SOB. TECHNIQUE: 2D digital imaging was performed. COMPARISON: CR,XR XR CHEST 2V PA LATERAL from 06/12/2020 FINDINGS: Single AP portable view. Heart size normal. The mediastinum is not widened. Lungs are clear. No infiltrates nor obvious pleural effusions. IMPRESSION: No acute pulmonary findings on this single AP portable view of the chest. DATA REPOSITORY: RADIATION DOSE DELIVERED:
--- NOTE | 2023-08-01 09:19 | ED.PROG_ITS ---
Date of service: 08/01/23 Time of Service: 07:30 Medical Decision Making I received signout during downtime. I have seen and examined the patient. The patient presents with acute bronchospasm and required multiple doses of DuoNebs (5) as well as Xopenex and Atrovent pain. She was discussed with Dr. Rosen the hospitalist who agreed to accept her. The patient feels improved. The patient voiced understanding agreement with the plan to admit. Differential Diagnosis Differential Diagnosis: Acute bronchospasm, pneumonia, viral illness, pneumothorax Medical Records Medical records reviewed: Yes I reviewed the patient's medical records. Imaging Data Radiologic Study: Imaging: X-Ray (Chest x-ray portable) Radiologist's impression: No acute pulmonary findings on the single AP portable view of the chest. Lab Data Lab results reviewed: Yes I reviewed the patient's lab results. Lab results narrative: Mild hyperglycemia ECG Data Attestation: I personally reviewed and interpreted this ECG (s) as follows: Prior ECG tracings: available for review Exam Narrative Exam Narrative: The patient has persistent expiratory wheezing but is moving air. Her vital signs are within normal limits. She is on 4 L on a facemask. This is not a nonrebreather. Narrative 10:41 AM the patient is eating and receiving IV fluids. After 1 liter of normal saline and breakfast, we will reassess her and have PT reevaluate her. Critical Care Time Critical Care Time Total Critical Care Time: 38 Attestation: This includes time at the bedside, review of labs radiographs and time with the treasury management sales consultant and discussion with the patient's daughter Discharge Plan Disposition Patient Disposition: Admit to [facility] Discharge Details Clinical Impression: Asthma with status asthmaticus in adult Admit Date/Time: 08/01/23 09:20 Admit Provider: Sedrick Vasquez Attending Provider: Sedrick Vasquez Primary Care Provider: Reese Barrera ED Provider: Liss Yu Discharge Data Discharge Date/Time-TO BE ENTERED AT DEPARTURE: 08/01/23 09:21 Discharge Physician: Liss Yu
[2023-08-01 10:32] LABS: COVID-19 PCR Negative (Negative); Influenza A PCR Negative (Negative); Influenza B PCR Negative (Negative); RSV PCR Negative (Negative); Source Nasopharynx
[2023-08-01 11:14] LABS: HCG Qual (Serum) Negative
[2023-08-01 11:16] LABS: HCO3 (Venous) 28 mmol/L (23-28); TCO2 (Venous) 26 mmol/L (24-29); pCO2 (Venous) 76 mmHg (41-51); pH (Venous) 7.18 (7.31-7.41); pO2 (Venous) 43 mmHg
[2023-08-01 11:17] LABS: HCT 47.6 % (36.0-46.0); HGB 15.3 g/dL (11.2-15.7); MCH 30.8 pg (27.0-33.0); MCV 96 fL (80-95); O2 Sat (Venous) 67 %; RBC 4.97 10^6/uL (3.93-5.22); WBC 13.11 10^3/uL (4.4-10.8)
[2023-08-01 11:18] LABS: Absolute Eosinophil Count 0.52 10^3/uL (0.0-0.7); Absolute Lymphocyte Count 5.51 10^3/uL (1.2-3.4); Absolute Monocyte Count 0.52 10^3/uL (0.1-0.8); Absolute Neutrophil Count 6.56 10^3/uL (1.2-6.7); MCHC 32.1 % (32.0-36.0); Platelet Count 418 10^3/uL (130-400); RDW-SD 46.2 fL
[2023-08-01 11:19] LABS: Diff Comment Manual Differential
[2023-08-01 11:20] LABS: Anion Gap 8.1 mmol/L (3-11); BUN 10 mg/dL (7-18); CO2 27.9 mmol/L (21.0-32.0); CREATININE 0.9 mg/dL (0.55-1.02); Calcium 9.2 mg/dL (8.5-10.1); Chloride 105 mmol/L (98-107); Estimated GFR 83.92 (mL/min/1.73m2); Glucose 196 mg/dL (74-106); Potassium 4.2 mmol/L (3.5-5.1); Sodium 141 mmol/L (136-145)
[2023-08-01 11:25] LABS: BE (Venous) 1 mmol/L (-2-3); HCO3 (Venous) 28 mmol/L (23-28); O2 Sat (Venous) 62 %; TCO2 (Venous) 26 mmol/L (24-29); pCO2 (Venous) 58 mmHg (41-51); pH (Venous) 7.29 (7.31-7.41); pO2 (Venous) 35 mmHg
[2023-08-01] MEDS: Enoxaparin 40 MG/0.4 ML SYR SC (12:09)
--- NOTE | 2023-08-01 12:19 | HPE_ITS ---
Date of service: 08/01/23 Time of Service: 12:19 Assessment and Plan Assessment and plan (1) Asthma with status asthmaticus in adult: Status: Acute Assessment and plan: patient appears to have responded to the multiple aerosolized bronchodilators, magnesium and dexamethasone she was given. We will monitor her overnight and if no relapse then discharge her home in the morning. She will be kept on scheduled DuoNeb every 4hr while awake overnight and continue on course of prednisone. No hx of sputum production, fevers or rigors and no infiltrates on her CXR therefore, I am not ordering antibiotics. I advised her to have her family either get rid of the ferrets or keep them outdoors or in another building where she will not be exposed when she comes home for visits. I am also suggesting she have a PSG to evaluate her for SPEEDY given her hypercarbia on presentation and hx of severe snoring. Qualifiers: Asthma severity: severe Asthma persistence: persistent Qualified Code(s): J45.52 - Severe persistent asthma with status asthmaticus (2) DVT prophylaxis: Status: Acute Assessment and plan: enoxaparin SC (3) Acute respiratory failure with hypoxia and hypercapnia: Status: Acute (4) Nicotine abuse: Status: Acute History of Present Illness History of Present Illness Chief Complaint: dyspnea Narrative: History obtained from my conversation w/ Dr. Yu, ED provider, review of chart and a limited hx obtained from the patient (she is very somnolent secondary to the ED medicating her w/ lorazepam). 38 yr old female w/ hx of asthma who also vapes nicotine and has multiple pets at home including cats and ferret (per information obtained from E.D. provider. Patient woke this morning severely dyspneic, coughing and could not catch her breath despite use of her inhalers. She presented to the E.D. at 7 a.m. in extremis tachypneic (RR 28), tachycardic (140 bpm), and hypoxemic (unable to find documentation of her oxygen saturation prior to arrival but was 94% on 4 lpm NC. She was found to have hypercarbia as well as hypoxemia per her ABG and was on Bipap temporarily. She has since been weaned to 4 lpm face mask w/ SPO2 95%. Workup included routine labs (CBC: WBC 13,000, no anemia), BMP (glucose 196, normal electrolytes), negative BHCG test, Fluvid nasal PCR negative for COVID, influenza and RSV. CXR (no acute pulmonary findings). VBG initially pH 7.18, pCO2 76, pO2 43 SvO2 67. After treatment w/ aerosols and BIPAP her repeat VBG was pH 7.29, pCO2 58, pO2 35, SvO2 62. Treatment included multiple DuoNeb x 4 or 5 treatments, dexamethasone 10 mg IVP, and magnesium bolus 2 gm. Because the ED indicated that they could not get her off oxygen they requested admission to the hospital. Since arriving to med/surg, patient has been somnolent but she is arouseable and she is able to answer my questions but has trouble maintaining her concentration and drifts back to sleep. When asked about why she is so sleepy, she indicated that she did not sleep all night. I have since personally weaned her off her oxygen gradually dropping her oxygen from 4 lpm to 2 lpm to 1 lpm and finally 0.5 lpm to room air. Her SPO2 dropped from 95% to 91% but has remained 91 to 92% on room air. Review of Systems All systems reviewed & are unremarkable except as noted in HPI and below Respiratory Respiratory: Reports as per HPI Comments: patient has frequent snoring but does not know whether or not she has apneic spells. I suggested she have outpatient PSG evaluation for SPEEDY. PFSH All Active Problems (Updated 08/01/23 @ 13:20 by Sedrick Vasquez MD) Nicotine abuse (Acute) Acute respiratory failure with hypoxia and hypercapnia (Acute) Asthma with status asthmaticus in adult (Acute) Tooth abscess (Acute) Discharge planning issues (Acute) DVT prophylaxis (Acute) Acute respiratory failure with hypoxia (Acute) Asthma with acute exacerbation (Acute) Seasonal allergies (Chronic) Obesity, morbid, BMI 40.0-49.9 (Acute) GERD (gastroesophageal reflux disease) (Chronic) Medical History Asthma Surgical History H/O section History of bilateral tubal ligation Family History Maternal Grandfather Hypertension Maternal Aunt Hypertension Maternal Uncle Diabetes Lung cancer Maternal Uncle Diabetes Maternal Grandmother Diabetes Mother Prediabetes Social History Smoking/Tobacco Use Status: Current-Occasional Tobacco Type: smokeless tobacco Smoking risk assessment performed?: Yes Alcohol Intake: current Alcohol Intake frequency: a few times a week Alcohol type: wine Drug use: Occasionally Substance use type: does not use Housing: house Do you feel safe at home: Yes Do you feel safe in your relationship?: Yes Meds Allergies and Home Medications Allergies Allergy/AdvReac Type Severity Reaction Status Date / Time Penicillins Allergy Mild Skin Rash Unverified 08/09/22 17:55 bee pollen AdvReac Severe Anaphylaxsi Unverified 08/09/22 17:55 s pet dender Allergy Mild Itching Uncoded 08/09/22 17:55 mold AdvReac Severe Anaphylaxsi Uncoded 08/09/22 17:55 s Home Medications Medication Instructions Recorded Confirmed Type albuterol sulfate 90 mcg/actuation 2 puff inhalation PRN PRN 07/30/16 08/01/23 History aerosol inhaler (ProAir HFA) montelukast 10 mg tablet 10 mg PO DAILY 07/30/16 08/01/23 History (Singulair) fluticasone 250 mcg-salmeterol 50 2 inh inhalation BID #0 ea 10/03/19 08/01/23 Rx mcg/dose blistr powdr for inhalation (Advair Diskus) loratadine 10 mg tablet 10 mg PO DAILY #90 tabs 10/03/19 08/01/23 Rx albuterol sulfate 2.5 mg/3 mL 1.25 mg (1.5 mL) inhalation QID 08/09/22 08/01/23 Rx (0.083 %) solution for nebulization PRN shortness of breath or wheezing #75 mL fluticasone fur. 200 mcg-umeclid 1 ea inhalation DAILY 08/09/22 08/01/23 History 62.5 mcg-vilant 25 mcg inhalat.powder (Trelegy Ellipta) prednisone 20 mg tablet 40 mg (2 x 20 mg) PO DAILY #8 tabs 08/09/22 08/01/23 Rx Exam Narrative Exam Narrative: Ryann was initially very somnolent when I walked in the room however after meeting her off oxygen she seemed to become alert and oriented which begs the question whether she was having some more CO2 retention or not. However she is now more awake and very alert. 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 She is not in any respiratory distress at present. She is able to talk in complete sentences Lungs: clear to ausculatation Heart: RRR no murmur or rub Abdomen: soft, nontender, no paradoxical breathing Legs: no edema or tenderness Results Labs 08/01/23 06:22 08/01/23 06:22 Labs: Laboratory Results - last 24 hr 08/01/23 08/01/23 08/01/23 06:22 07:24 09:42 WBC 13.11 H RBC 4.97 Hgb 15.3 Hct 47.6 H MCV 96 H MCH 30.8 MCHC 32.1 RDW 13.0 Plt Count 418 H MPV 8.0 Immature Gran % See Differential Neutrophils % 50.0 Lymphocytes % 33.0 Atypical Lymphs % 9.0 Monocytes % 4.0 Eosinophils % 4.0 Basophils % 0.0 Absolute Neutrophils 6.56 Absolute Lymphocytes 5.51 H Absolute Monocytes 0.52 Absolute Eosinophils 0.52 Absolute Basophils 0.00 VBG pH 7.18 L* 7.29 L VBG pCO2 76 H* 58 H VBG pO2 43 35 VBG HCO3 28 28 VBG Total CO2 26 26 VBG O2 Saturation 67 62 VBG Base Excess -0 1 Sodium 141 Potassium 4.2 Chloride 105 Carbon Dioxide 27.9 Anion Gap 8.1 BUN 10 Creatinine 0.9 Est GFR (CKD-EPI 2020) 83.92 Glucose 196 H Calcium 9.2 Serum HCG, Qual Negative COVID-19 Source Nasopharynx SARS-CoV-2 (PCR) Negative Influenza Type A (PCR) Negative Influenza Type B (PCR) Negative RSV (PCR) Negative 08/01/23 11:01 WBC Cancelled RBC Cancelled Hgb Cancelled Hct Cancelled MCV Cancelled MCH Cancelled MCHC Cancelled RDW Cancelled Plt Count Cancelled MPV Cancelled Immature Gran % Neutrophils % Lymphocytes % Atypical Lymphs % Monocytes % Eosinophils % Basophils % Absolute Neutrophils Absolute Lymphocytes Absolute Monocytes Absolute Eosinophils Absolute Basophils VBG pH VBG pCO2 VBG pO2 VBG HCO3 VBG Total CO2 VBG O2 Saturation VBG Base Excess Sodium Potassium Chloride Carbon Dioxide Anion Gap BUN Creatinine Est GFR (CKD-EPI 2020) Glucose Calcium Serum HCG, Qual COVID-19 Source SARS-CoV-2 (PCR) Influenza Type A (PCR) Influenza Type B (PCR) RSV (PCR) Last Vital Signs Temp 36.5 C 08/01/23 10:52 Pulse 113 H 08/01/23 10:52 Resp 22 08/01/23 10:52 BP 97/61 L 08/01/23 10:52 Pulse Ox 95 08/01/23 10:52 Time Spent Time spent with Patient: 55-74 minutes Time was spent: preparing to see the patient(eg.review tests), obtaining and/or reviewing separately otained hiistory, ordering medications,tests, procedures, referring, communicating with other health coronary care unit nurse, indepentently interpreting results, counseling the patient and care coordination
--- NOTE | 2023-08-01 13:19 | RESPIRATORY ---
Patient uses Vape with smokeless tobacco daily RT Assessment Start: 08/01/23 09:25 Freq: .q shift and prn Status: Active Protocol: Document 08/01/23 13:16 RT.JOSE ROBERTO (Rec: 08/01/23 13:19 RT.[email or web address] [facility]-[id number]) RT Assessment Pulmonary History Pulmonary History Asthma Smoking History Smoking/Tobacco Use Status Current-Occasional Tobacco Type smokeless tobacco OXYGEN HISTORY: CPAP Can use home machine N/A BIPAP Can you home machine N/A Trilogy/AVAPS Can use home machine N/A Current Respiratory Symptoms Current Respiratory Symptoms Shortness of breath Activity Activity Level No limitations Respiratory Breath Sounds Breath Sounds Clear Response No change Pulse Rate <100 Respiratory Rate <18 Shortness of Breath None Respiratory Therapy Score Total 0 Assessment and Plan RT Treatment Protocol No RT treatment protocols required at this time, re- consult if change Note Continue with home medication regimen
[2023-08-01] MEDS: Montelukast 10 MG TAB PO (13:52)
[2023-08-01] MEDS: Loratidine 10 MG TAB PO (13:52)
--- NOTE | 2023-08-01 16:15 | NUR.NOTE ---
Nursing Note:this pt was admitted during [facility] downtime, please look at paper charts for more information
[2023-08-01] MEDS: Acetaminophen 325 MG TAB PO (18:16)
[2023-08-01] MEDS: Budesonide/Formoterol 160/4.5 6 GM 60 PUFF INH IH (19:11)
[2023-08-02 03:45] VITALS: BP 107/72; PULSE 72; RESP 18; TEMP 39.2; O2SAT 96
[2023-08-02 07:24] VITALS: BP 107/69; PULSE 81; RESP 16; TEMP 36.5; O2SAT 95
[2023-08-02] MEDS: Budesonide/Formoterol 160/4.5 6 GM 60 PUFF INH IH (08:26)
[2023-08-02] MEDS: Tiotropium Bromide-Respimat 10 PUFF INH 2 PUFF IH (08:26)
[2023-08-02] MEDS: Montelukast 10 MG TAB PO (08:45)
[2023-08-02] MEDS: predniSONE 20 MG TAB 60 MG PO (08:45)
[2023-08-02] MEDS: Loratidine 10 MG TAB PO (08:45)
[2023-08-02 11:49] VITALS: BP 125/66; PULSE 92; RESP 18; TEMP 36.5; O2SAT 96
--- NOTE | 2023-08-02 12:05 | W.PM.DS.N ---
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 Patient states she has multiple environmental allergens and usually does not stay at all but states in a local motel when she returns home for visits. She presented the emergency department and extremis and was found to be status asthmaticus with tachypnea and tachycardia and hypoxemia and was found to have hypercarbia as well as hypoxemia. She was treated with BiPAP multiple DuoNeb treatments and given Decadron. Because of the ED personnel were unable to wean her off oxygen she was admitted to the hospital. Shortly after arrival to the medical/surgical floor she was doing markedly better with no wheezing and no hypoxemia. She was monitored overnight continued on oral prednisone as well as scheduled DuoNeb treatments. This morning she is feeling markedly better requesting to return home. She is advised to avoid vaping or any other inhaled products as these are likely to exacerbate her breathing problems. Because of her hypercarbia and her snoring she has been advised that she should see a specialist about having a sleep study done to rule out sleep apnea. She is being discharged on a taper dose of prednisone starting at 60 mg daily x3 days then decreasing to 40 mg/day x 3 days then 20 mg/day x 3 days then 10 mg/day x 3 days. She can use her albuterol inhaler 2 to 4 puffs every 2 hours as needed. She is no longer taking Trelegy so we have taken that off of her medication list. She still uses Advair and should stay on her Advair Diskus 2 puffs twice a day. She was given a Symbicort that she can use in place of the Advair Diskus in the event that she was out of her Advair. She is to follow-up with her primary care provider in the next week. She is discharged in markedly improved and stable condition. (2) Acute respiratory failure with hypoxia and hypercapnia: Status: Resolved (3) Asthma: (4) Nicotine abuse: Status: Chronic Discharge Plan Disposition Patient Disposition: Home Condition: Good Discharge Details Reason For Visit: Acute Asthma Exacerbation Admit Date/Time: 08/01/23 09:20 Admit Provider: Sedrick Vasquez Attending Provider: Sedrick Vasquez Primary Care Provider: Reese Barrera Home Meds and New Rx's Prescriptions: New prednisone 20 mg tablet See Rx Instructions .ROUTE .COMPLEX Qty: 20 0RF Rx Instructions: 20 mg orally 3 tab/d x 3d, 2 tab/d x 3d, 1 tab/d x 3d, 1/2 tab/d x 3d Continued montelukast [Singulair] 10 MG tablet 10 mg PO DAILY loratadine 10 mg Tablet 10 mg PO DAILY Qty: 90 1RF fluticasone propion-salmeterol [Advair Diskus] 250-50 mcg/dose blister with device 2 inh IH BID Qty: 0 0RF albuterol sulfate 2.5 mg /3 mL (0.083 %) solution for nebulization 1.25 mg IH QID PRN (Reason: shortness of breath or wheezing) Qty: 75 2RF Changed albuterol sulfate [ProAir HFA] 200 PUFF HFA aerosol inhaler 2 puff Inhalation Q2H PRN PRNQty: 8.5 0RF Discontinued Trelegy Ellipta 200-62.5-25 mcg blister with device 1 ea INHALATION DAILY Patient Comments: INHALE 1 PUFF BY MOUTH EVERY DAY prednisone 20 mg tablet 40 mg PO DAILY Qty: 8 0RF Discharge Instructions Instructions: Moderate and Severe Persistent Asthma (DC) Additional Instructions: Please avoid any vaping or other form of inhaled products such as nicotine. Avoid animal dander, molds or dust. Use your albuterol inhaler 2 to 4 puffs every 2 to 4 hours as needed for acute bronchospasm/dyspnea. Please take your prednisone in tapered schedule as prescribed: 60 mg daily x 3day, then 40 mg daily x 3 days then 20 mg per day x 3 days then 10 mg per day x 3 days. Use your Advair regularly. You were given Symbicort while in the hospital and you may take this home to use at home in place of the Advair should you run out of your Advair. [facility] [place] Stand Alone Forms: Nursing Discharge Form Referrals: Reese Barrera [Primary Care Provider] - Activity:: Activity as Tolerated Equipment/Supplies:: No Equipment Needed Diet:: Normal Diet Discharge Orders Discharge Orders: Discharge Order (Routine); Ordered 08/02/23 Ordered By: Sedrick Vasquez DS: Summary Time Spent with Patient providing and/or coordinating discharge services: Less than 30 minutes Status at Discharge Functional status at discharge: independent ambulation Overall status at discharge: patient is back to baseline Mental Status: mental status grossly normal Speech and Movement: speech and movement normal Mood: congruent mood Affect: normal affect Exam Narrative Exam Narrative: Ryann is sitting up in bed with her son she is alert and oriented person place time circumstance she is in no acute distress. She will speak in complete paragraphs. Lungs are clear to auscultation Heart regular rate and rhythm Psych Mental Status: mental status grossly normal Speech and Movement: speech and movement normal Mood: congruent mood Affect: normal affect DS: Data Vitals/I&O Vitals and I&O: Vital Signs Temperature 36.5 C 08/02/23 11:49 Temperature Source Tympanic 08/02/23 11:49 Pulse 92 H 08/02/23 11:49 Pulse Rhythm Regular 08/02/23 08:30 Respiratory Rate 18 08/02/23 11:49 Respiratory Effort Normal 08/02/23 08:30 Respiratory Depth Normal 08/02/23 08:30 Respiratory Pattern Normal 08/02/23 08:30 Blood Pressure 125/66 08/02/23 11:49 Pulse Oximetry 96 08/02/23 11:49 Oxygen Delivery Method Room Air 08/02/23 11:49 Oxygen Flow Rate 0 08/02/23 11:49 Pain Level 0 08/02/23 11:49 Comment pt. c/o headache 08/01/23 19:36 Intake & Output 08/01/23 08/02/23 08/02/23 23:59 11:59 23:59 Output Total 250 / 250 1700 / 1700 Balance -250 / -250 -1700 / -1700 Output: Urine 250 / 250 1700 / 1700 Other: Urine Color Yellow Yellow Urine Appearance Clear Clear Urine Odor Normal None Voiding Methods Toilet Data Completed and Pending Labs on day of discharge: Labs from last 24 hours 08/01/23 Unknown VBG pH Cancelled VBG pCO2 Cancelled VBG pO2 Cancelled VBG HCO3 Cancelled VBG Total CO2 Cancelled VBG O2 Saturation Cancelled VBG Base Excess Cancelled PFSH All Active Problems (Updated 08/02/23 @ 12:06 by Sedrick Vasquez MD) Nicotine abuse (Chronic) Tooth abscess (Acute) Discharge planning issues (Acute) DVT prophylaxis (Acute) Acute respiratory failure with hypoxia (Acute) Asthma with acute exacerbation (Acute) Seasonal allergies (Chronic) Obesity, morbid, BMI 40.0-49.9 (Acute) GERD (gastroesophageal reflux disease) (Chronic) Medical History Asthma Surgical History H/O section History of bilateral tubal ligation Family History Maternal Grandfather Hypertension Maternal Aunt Hypertension Maternal Uncle Diabetes Lung cancer Maternal Uncle Diabetes Maternal Grandmother Diabetes Mother Prediabetes Social History Smoking/Tobacco Use Status: Current-Occasional Tobacco Type: smokeless tobacco Smoking risk assessment performed?: Yes Alcohol Intake: current Alcohol Intake frequency: a few times a week Alcohol type: wine Drug use: Occasionally Substance use type: does not use Housing: house Do you feel safe at home: Yes Do you feel safe in your relationship?: Yes Time Spent with Patient Time Spent with Patient: <45 minutes Time was spent: ordering medications,tests, procedures, counseling the patient and care coordination
--- NOTE | 2023-08-02 15:03 | PDOC.CMPRO ---
Date of service: 08/02/23 Time of Service: 15:03 Care Management Progress Note Progress Note Text Progress Note Text: S/O: Ryann was admitted yesterday following an asthma attack. She responded quickly to treatment and was ready for discharge today. She left before was able to meet with her. A: Ryann is a 38 year old woman admitted with asthma on 08/01/23. P: Ryann will be discharged home with no new services. She will follow up with her community providers and plan of care and transport with family.
== END 2023-08-02 12:42 | disposition home or self-care (01) ==
LOC: ER 10:37 → MS 12:31
PROVIDERS: Admitting Provider Internal Medicine; Emergency Provider Emergency Medicine Emergency Medical Services; PCP Family Medicine; Visit Provider Internal Medicine
DX: J45.52 Severe persistent asthma with status asthmaticus (principal); J96.01 Acute respiratory failure with hypoxia; J96.02 Acute respiratory failure with hypercapnia; F17.290 Nicotine dependence, other tobacco product, uncomplicated; E66.01 Morbid (severe) obesity due to excess calories; K21.9 Gastro-esophageal reflux disease without esophagitis
CPT/HCPCS: 00123; 80048; 82805; 85027; 87637; 93005; 94640; 99291; J1650; 71045; 84703; 85025; 93010; 94664; 94760; 99223; 99238; G0378; J7512; J7614; J7644

== ENCOUNTER 2023-10-11 16:25 | Emergency (ER) | payer SELFPAY ==
[2023-10-11 16:40] VITALS: BP 121/91; PULSE 96; RESP 18; TEMP 37.3; O2SAT 98
--- NOTE | 2023-10-11 19:08 | ED.GENADUL_ITS ---
HPI General Date/Time Provider Initiated Documentation: 10/11/23 16:49 . HPI Narrative: This 30-year-old female presents with abscess to left glutes for started 3 days prior to arrival, otherwise reportedly healthy. Denies chance of or history of similar symptoms in the past. Denies fever or chills. Related Data Home Medications Medication Instructions Recorded Confirmed montelukast 10 mg tablet 10 mg PO DAILY 07/30/16 10/11/23 (Singulair) loratadine 10 mg tablet 10 mg PO DAILY #90 tabs 10/03/19 10/11/23 albuterol sulfate 2.5 mg/3 mL 1.25 mg (1.5 mL) inhalation QID 08/09/22 10/11/23 (0.083 %) solution for nebulization PRN shortness of breath or wheezing #75 mL albuterol sulfate 90 mcg/actuation 2 puff inhalation Q2H PRN PRN #8.5 08/02/23 10/11/23 aerosol inhaler (ProAir HFA) grams doxycycline hyclate 100 mg capsule 100 mg PO BID #14 caps 10/11/23 Previous Rx's Medication Instructions Recorded loratadine 10 mg tablet 10 mg PO DAILY #90 tabs 10/03/19 albuterol sulfate 2.5 mg/3 mL 1.25 mg (1.5 mL) inhalation QID 08/09/22 (0.083 %) solution for nebulization PRN shortness of breath or wheezing #75 mL albuterol sulfate 90 mcg/actuation 2 puff inhalation Q2H PRN PRN #8.5 08/02/23 aerosol inhaler (ProAir HFA) grams doxycycline hyclate 100 mg capsule 100 mg PO BID #14 caps 10/11/23 Allergies Allergy/AdvReac Type Severity Reaction Status Date / Time Penicillins Allergy Mild Skin Rash Unverified 10/11/23 16:45 bee pollen AdvReac Severe Anaphylaxsi Unverified 10/11/23 16:45 s pet dender Allergy Mild Itching Uncoded 10/11/23 16:45 mold AdvReac Severe Anaphylaxsi Uncoded 10/11/23 16:45 s General Stated Complaint: Cellulitis DAYO: 3 Course Vital Signs Vital signs: Vital Signs Temperature 37.3 C 10/11/23 16:40 Pulse 96 H 10/11/23 16:40 Respiratory Rate 18 10/11/23 16:40 Blood Pressure 121/91 H 10/11/23 16:40 Pulse Oximetry 98 10/11/23 16:40 Temperature 37.3 C 10/11/23 16:40 Pulse 96 H 10/11/23 16:40 Respiratory Rate 18 10/11/23 16:40 Respiratory Effort Normal 10/11/23 17:54 Blood Pressure 121/91 H 10/11/23 16:40 Pulse Oximetry 98 10/11/23 16:40 Oxygen Delivery Method Room Air 10/11/23 16:40 Oxygen Flow Rate 0 10/11/23 16:40 Procedures Abscess I/D Site: Other (glute) Side (if applicable): Left Local Anesthetic: Lidocaine 1% and With Epi Amount of anesthesia used (mL): 5 Technique: Incised with #11 Blade Amount of fluid expressed (mL): 10 Irrigation: No Packing used?: None Medical Decision Making This 38-year-old female presents with report of abscess to left glutes, approximately 1 inch abscess noted to clear with surrounding cellulitis, indurated, mild fluctuance Will perform incision and drainage Tolerated incision and drainage with discomfort, placed dressing Placed on doxycycline Warm compresses encouraged Work note supplied 4 tablets of oxycodone for this evening, risk of addiction reviewed Will take ibuprofen and Tylenol as needed pain Return precautions reviewed and patient expressed understanding Medical Records Medical records reviewed: Yes I reviewed the patient's medical records. Lab Data Lab results reviewed: Yes I reviewed the patient's lab results. Quality:SDOH Health Related Social Needs: No Data to Display PFSH All Active Problems (Updated 10/11/23 @ 19:11 by DEANNE Wells) Abscess, gluteal, left (Acute) Nicotine abuse (Chronic) Tooth abscess (Acute) Discharge planning issues (Acute) Acute respiratory failure with hypoxia (Acute) Asthma with acute exacerbation (Acute) Seasonal allergies (Chronic) Obesity, morbid, BMI 40.0-49.9 (Acute) GERD (gastroesophageal reflux disease) (Chronic) Medical History Asthma Surgical History H/O section History of bilateral tubal ligation Family History Maternal Grandfather Hypertension Maternal Aunt Hypertension Maternal Uncle Diabetes Lung cancer Maternal Uncle Diabetes Maternal Grandmother Diabetes Mother Prediabetes Social History Smoking/Tobacco Use Status: Current-Occasional Tobacco Type: smokeless tobacco Smoking risk assessment performed?: Yes Alcohol Intake: current Alcohol Intake frequency: a few times a week Alcohol type: wine Drug use: Occasionally Substance use type: does not use Housing: house Do you feel safe at home: Yes Do you feel safe in your relationship?: Yes Discharge Plan Disposition Patient Disposition: Home Discharge Details Clinical Impression: Abscess, gluteal, left Primary Care Provider: Reese Barrera ED Provider: La Chatman Home Meds and New Rx's Prescriptions: New doxycycline hyclate 100 mg capsule 100 mg PO BID Qty: 14 0RF Continued montelukast [Singulair] 10 MG tablet 10 mg PO DAILY loratadine 10 mg Tablet 10 mg PO DAILY Qty: 90 1RF albuterol sulfate 2.5 mg /3 mL (0.083 %) solution for nebulization 1.25 mg IH QID PRN (Reason: shortness of breath or wheezing) Qty: 75 2RF albuterol sulfate [ProAir HFA] 200 PUFF HFA aerosol inhaler 2 puff Inhalation Q2H PRN PRNQty: 8.5 0RF Discharge Instructions Instructions: Abscess (ED) Additional Instructions: Apply warm compresses to affected area Take antibiotics as prescribed Ibuprofen and Tylenol for pain The wound will continue to drain, I recommend changing her dressing every couple hours Please return with spreading redness, fever, worsening pain You likely have improved pain tomorrow but please continue to take your antibiotics Yogurt daily while on antibiotics Stand Alone Forms: Work Release Referrals: Reese Barrera [Primary Care Provider] -
[2023-10-11] MEDS: Doxycycline Hyclate 100 MG, 2 CAPS/BTL PO (19:29)
[2023-10-11 19:30] VITALS: BP 122/88; PULSE 88; RESP 16; O2SAT 98
== END 2023-10-11 19:30 | disposition home or self-care (01) ==
PROVIDERS: Emergency Provider Physician Assistant; PCP Family Medicine
DX: L02.31 Cutaneous abscess of buttock (principal)
CPT/HCPCS: 10060

== ENCOUNTER 2024-04-06 03:27 | Emergency (ER) | payer SELFPAY ==
[2024-04-06] VITALS (46 sets, daily range): BP systolic 90–126; BP diastolic 48–80; PULSE 75–118; RESP 2–25; TEMP 36.6; O2SAT 75–98
--- NOTE | 2024-04-06 03:16 | ED.GENADUL_ITS ---
Discharge Plan Disposition Patient Disposition: Home Condition: Improving Discharge Details Clinical Impression: Acute asthma exacerbation Primary Care Provider: Reese Barrera ED Provider: Rudolph Olvera Meds and New Rx's Prescriptions: New prednisone 20 mg tablet 40 mg PO DAILY Qty: 8 0RF Continued montelukast [Singulair] 10 MG tablet 10 mg PO DAILY loratadine 10 mg Tablet 10 mg PO DAILY Qty: 90 1RF albuterol sulfate 2.5 mg /3 mL (0.083 %) solution for nebulization 1.25 mg IH QID PRN (Reason: shortness of breath or wheezing) Qty: 75 2RF albuterol sulfate [ProAir HFA] 200 PUFF HFA aerosol inhaler 2 puff Inhalation Q2H PRN PRNQty: 8.5 0RF Discharge Instructions Instructions: Asthma, Adult ED Additional Instructions: You were seen in the ED for acute asthma exacerbation with respiratory distress. You improved with continuous nebs to the point where you are breathing comfortably with normal room air saturations. You should use your albuterol every 4 hours for the next day or 2. We will burst you with prednisone and you should take your first dose later this afternoon. Please follow-up with your primary care physician this week for recheck. Return to the ED at once for any increase in shortness of breath, increased wheezing, chest pain, other concerns. Stand Alone Forms: Work Release Referrals: Reese Barrera [Primary Care Provider] - HPI General Mode of arrival: EMS . Date/Time Provider Initiated Documentation: 04/06/24 03:32 . Limitations to Documentation: no limitations . Information obtained by: patient, EMS, RN notes reviewed and old records reviewed . HPI Narrative: Patient presents to ED from home by ambulance with onset of wheezing and shortness of breath overnight. Patient has history of allergies and asthma. Typically does not stay at home because she tends to have reactions while there. Was home visiting for tonight and developed some wheezing and shortness of breath. She has used her inhaler as well as took 50 of diphenhydramine. Ultimately had to call EMS for increasing shortness of breath. Received 2 DuoNebs on scene while waiting for medics to arrive. Subsequently received 1 more DuoNeb and 2 albuterol's, 2 g of magnesium, 125 of Solu-Medrol. Patient denies any fever, cough, chest pain, illness prior to this. Related Data Home Medications ?Medication ?Instructions ?Recorded ?Confirmed montelukast 10 mg tablet 10 mg PO DAILY 07/30/16 04/06/24 (Singulair) loratadine 10 mg tablet 10 mg PO DAILY #90 tabs 10/03/19 04/06/24 albuterol sulfate 2.5 mg/3 mL 1.25 mg (1.5 mL) inhalation QID 08/09/22 04/06/24 (0.083 %) solution for nebulization PRN shortness of breath or wheezing #75 mL albuterol sulfate 90 mcg/actuation 2 puff inhalation Q2H PRN PRN #8.5 08/02/23 04/06/24 aerosol inhaler (ProAir HFA) grams prednisone 20 mg tablet 40 mg (2 x 20 mg) PO DAILY #8 tabs 04/06/24 Previous Rx's ?Medication ?Instructions ?Recorded loratadine 10 mg tablet 10 mg PO DAILY #90 tabs 10/03/19 albuterol sulfate 2.5 mg/3 mL 1.25 mg (1.5 mL) inhalation QID 08/09/22 (0.083 %) solution for nebulization PRN shortness of breath or wheezing #75 mL albuterol sulfate 90 mcg/actuation 2 puff inhalation Q2H PRN PRN #8.5 08/02/23 aerosol inhaler (ProAir HFA) grams prednisone 20 mg tablet 40 mg (2 x 20 mg) PO DAILY #8 tabs 04/06/24 Allergies Allergy/AdvReac Type Severity Reaction Status Date / Time Penicillins Allergy Mild Skin Rash Unverified 04/06/24 03:43 bee pollen AdvReac Severe Anaphylaxsi Unverified 04/06/24 03:43 s pet dender Allergy Mild Itching Uncoded 04/06/24 03:43 mold AdvReac Severe Anaphylaxsi Uncoded 04/06/24 03:43 s General DAYO: 3 Review of Systems Narrative: Per HPI Exam Narrative Exam Narrative: Const: WDWN female in mild to moderate respiratory distress. VS per triage. HEENT: NC/AT. Normal facial exam. Neck: Supple. Trachea midline. Lungs: Diffuse wheezing throughout with fair air exchange. Cor: RRR without murmur. Good radial pulses. GI: Soft/ND. Neuro: A+O x 3. Normal speech, mentation. Cranial nerves II - XII grossly intact. No gross motor or sensory deficit. Ext: No C/C/E. Medical Decision Making Patient presenting with acute asthma exacerbation. She has similar visits and admissions in the past. Typically seems to get better relatively quickly. She is already able to speak a little more easily than when EMS first arrived at her home. Still has diffuse wheezing, mild to moderate respiratory distress, fair air exchange. She has already had steroids and magnesium. Will place her on continuous albuterol over the next 1 to 2 hours. Chest x-ray was ordered but after discussion with her she would like to decline. Did obtain labs including VBG. She is not having any type of chest pain or pressure show EKG and cardiac enzymes deferred. 04:45 - Patient much improved after continuous albuterol. Initial VBG with a pH of 7.25 and a pCO2 of 68. CBC is normal. Chemistries unremarkable. Magnesium high consistent with being given 2 g of IV mag. Will plan repeat VBG. Able to speak in full sentences now and is not in distress any longer. 05:05 - Patient VBG essentially normal now. Still wheezing throughout but good exchange. Saturations a little low and requiring NC oxygen. Plan to watch for next 60 - 90 minutes before making disposition. 06:30 - Patient sleeping but is requiring 3L NC oxygen to keep saturations at 90%. On RA she drops to 85%. Will give a duoneb and re-eval but suspect she is going to require an observation admit. 08:00 - Patient much better and has normal saturations of 95% on RA while awake. She is noted to desaturate while sleeping, likely related to sleep apnea. She is safe for discharge. Will have her use her albuterol every 4 to 6 hours over the next couple of days. Will burst with prednisone also for the next few days. She should follow-up with primary care this week for recheck. Return precautions provided. Medical Records Medical records reviewed: Yes I reviewed the patient's medical records. Medical records narrative: Previous ED visits and short admissions for similar presentations. Lab Data Lab results reviewed: Yes I reviewed the patient's lab results. Lab results narrative: See MDM Critical Care Time Critical Care Time Critical Care Time: Yes Total Critical Care Time: 45 Attestation: Upon my evaluation, this patient had a high probability of imminent or life- threatening deterioration, which required my direct attention, intervention, and personal management. I have personally provided 45 minutes of critical care time exclusive of time spent on separately billable procedures. Time includes monitoring for potential decompensation, ordering of tests and medications, review of laboratory and radiology results, discussion with consultants and documentation . Interventions were performed as documented above in procedures. PFS All Active Problems (Updated 04/06/24 @ 08:01 by Rudolph Olvera MD) Acute asthma exacerbation (Acute) Nicotine abuse (Chronic) Seasonal allergies (Chronic) Obesity, morbid, BMI 40.0-49.9 (Acute) Medical History GERD (gastroesophageal reflux disease) Asthma Surgical History H/O section History of bilateral tubal ligation Family History Maternal Grandfather Hypertension Maternal Aunt Hypertension Maternal Uncle Diabetes Lung cancer Maternal Uncle Diabetes Maternal Grandmother Diabetes Mother Prediabetes Social History Smoking/Tobacco Use Status: Current-Occasional Tobacco Type: smokeless tobacco Smoking risk assessment performed?: Yes Alcohol Intake: current Alcohol Intake frequency: a few times a week Alcohol type: wine Drug use: Occasionally Substance use type: marijuana Details: patient eats the marijuana gummies Housing: house Do you feel safe at home: Yes Do you feel safe in your relationship?: Yes
[2024-04-06 03:44] LABS: BE (Venous) 3 mmol/L (-2-3); HCO3 (Venous) 30 mmol/L (23-28); O2 Sat (Venous) 49 %; TCO2 (Venous) 28 mmol/L (24-29); pH (Venous) 7.25 (7.31-7.41); pO2 (Venous) 31 mmHg
[2024-04-06] MEDS: ALBUTEROL 15 MG, SODIUM CHLORIDE 0.9% FOR INH. 3 ML UPD (03:45)
[2024-04-06 03:46] LABS: Abs Immature Grans 0.03 10^3/uL (0.0-0.06); Absolute Basophil Count 0.07 10^3/uL (0.0-0.2); Absolute Eosinophil Count 0.43 10^3/uL (0.0-0.7); Absolute Lymphocyte Count 3.63 10^3/uL (1.2-3.4); Absolute Monocyte Count 0.69 10^3/uL (0.1-0.8); Absolute Neutrophil Count 4.91 10^3/uL (1.2-6.7); Basophils % 0.7 %; Eosinophils % 4.4 %; HGB 14.2 g/dL (11.2-15.7); Immature Grans % 0.3 %; Lymphocytes % 37.2 %; MCH 31.3 pg (27.0-33.0); MCV 95 fL (80-95); Monocytes % 7.1 %; Neutrophils % 50.3 %; Platelet Count 303 10^3/uL (130-400); RBC 4.53 10^6/uL (3.93-5.22); RDW 13.2 % (11.7-14.6); RDW-SD 44.8 fL; WBC 9.76 10^3/uL (4.4-10.8)
[2024-04-06 03:47] LABS: pCO2 (Venous) 68 mmHg (41-51)
[2024-04-06 04:38] LABS: Anion Gap 11.6 mmol/L (3-11); BUN 10 mg/dL (7-18); CO2 28.4 mmol/L (21.0-32.0); Calcium 9.3 mg/dL (8.5-10.1); Chloride 107 mmol/L (98-107); Estimated GFR 73.49 (mL/min/1.73m2); Glucose 143 mg/dL (74-106); Magnesium 3.5 mg/dL (1.8-2.4); Potassium 4.2 mmol/L (3.5-5.1); Sodium 147 mmol/L (136-145)
[2024-04-06 04:58] LABS: BE (Venous) 2 mmol/L (-2-3); HCO3 (Venous) 28 mmol/L (23-28); O2 Sat (Venous) 81 %; TCO2 (Venous) 25 mmol/L (24-29); pCO2 (Venous) 52 mmHg (41-51); pH (Venous) 7.33 (7.31-7.41); pO2 (Venous) 48 mmHg
[2024-04-06] MEDS: Albuterol/Ipratropium 3 ML UPD VIAL UPD (06:32)
== END 2024-04-06 09:50 | disposition home or self-care (01) ==
PROVIDERS: Emergency Provider Emergency Medicine; PCP Family Medicine
DX: J45.901 Unspecified asthma with (acute) exacerbation (principal); F17.290 Nicotine dependence, other tobacco product, uncomplicated
CPT/HCPCS: 80048; 82805; 94644; 99284; 83735; 85025; 94640; 99283; J7613; J7620

== ENCOUNTER 2024-07-19 23:23 | Emergency (ER) | payer SELFPAY ==
[2024-07-19 23:24] VITALS: BP 125/72; PULSE 105; RESP 28; TEMP 35.9; O2SAT 98
[2024-07-19] MEDS: Albuterol/Ipratropium 3 ML UPD VIAL UPD (23:30)
--- NOTE | 2024-07-19 23:30 | RT.EKG_ITS ---
APPROVED REPORT Exam: Resting ECG Reason for Exam: SOB Patient Location: E HR:88 bpm ECG Measurements Heart Rate 88 AXIS MS 133 P 73 QRSd 96 QRS 80 QT 378 T 41 QTc 457 Conclusion Sinus rhythm...normal P axis, V-rate 60- 99 Normal [place] Normal Electrocardiogram
--- NOTE | 2024-07-19 23:30 | DI.RAD_ITS ---
Exam(s) XR PORTABLE CHEST AP EXAM: XR PORTABLE CHEST AP CLINICAL HISTORY: SOB TECHNIQUE: 2D digital imaging was performed. COMPARISON: No exams were available for comparison FINDINGS: LUNGS: Clear. No pleural abnormality seen. HEART: Normal size. AORTA: Normal diameter. BONES: Unremarkable for age. Soft tissues: Unremarkable. IMPRESSION: No acute findings. DATA REPOSITORY: RADIATION DOSE DELIVERED:
[2024-07-19] MEDS: methylPREDNISolone SUCC 125 MG VIAL (23:32)
--- NOTE | 2024-07-19 23:34 | W.ED.GENAD ---
Discharge Plan Disposition Patient Disposition: Home Condition: Improving Discharge Details Clinical Impression: Acute asthma exacerbation Primary Care Provider: Reese Barrera ED Provider: Rudolph Olvera Mosquero Meds and New Rx's Prescriptions: Continued montelukast [Singulair] 10 MG tablet 10 mg PO DAILY loratadine 10 mg Tablet 10 mg PO DAILY Qty: 90 1RF albuterol sulfate 2.5 mg /3 mL (0.083 %) solution for nebulization 1.25 mg IH QID PRN (Reason: shortness of breath or wheezing) Qty: 75 2RF buspirone 10 mg tablet Patient Comments: TAKE 1 TABLET BY MOUTH TWICE DAILY FOR 14 DAYS budesonide-formoterol [Symbicort] inhalation albuterol sulfate [ProAir HFA] 200 PUFF HFA aerosol inhaler 2 puff Inhalation Q2H PRN PRNQty: 8.5 0RF Changed prednisone 20 mg tablet 40 mg PO HS Qty: 8 0RF Discharge Instructions Instructions: Asthma, Adult ED Additional Instructions: You were seen for an acute asthma exacerbation. You improved with nebulizers and steroids as well as a dose of magnesium. Please continue your Symbicort and albuterol. Prescription for prednisone has been sent to your pharmacy and you should begin taking it the evening of the . Please follow-up with primary care this week for recheck. Return to ED for any worsening shortness of breath, mental status change, chest pain, other concerns. Referrals: Reese Barrera [Primary Care Provider] - [facility] General Mode of arrival: ambulatory. Date/Time Provider Initiated Documentation: 07/19/24 23:26. Limitations to Documentation: no limitations. Information obtained by: patient and RN notes reviewed. HPI Narrative: Patient presents to ED with shortness of breath, wheezing. Patient with history of asthma. She also has history of anxiety and initially thought this may be anxiety related. However she has had no improvement and has had increased shortness of breath, wheezing over the last 24 hours. She denies any URI type symptoms or fever. She denies chest pain just complains of wheezing and tightness. She did not have any prednisone to take at home. She has been using her Symbicort, Singulair, albuterol. She denies any GI symptoms. Denies any neurologic changes. Related Data Home Medications ?Medication ?Instructions ?Recorded ?Confirmed montelukast 10 mg tablet 10 mg PO DAILY 07/30/16 07/20/24 (Singulair) loratadine 10 mg tablet 10 mg PO DAILY #90 tabs 10/03/19 07/20/24 albuterol sulfate 2.5 mg/3 mL 1.25 mg (1.5 mL) inhalation QID 08/09/22 07/20/24 (0.083 %) solution for nebulization PRN shortness of breath or wheezing #75 mL albuterol sulfate 90 mcg/actuation 2 puff inhalation Q2H PRN PRN #8.5 08/02/23 07/20/24 aerosol inhaler (ProAir HFA) grams budesonide-formoterol inhalation 07/20/24 buspirone 10 mg tablet mg 07/20/24 prednisone 20 mg tablet 40 mg (2 x 20 mg) PO HS #8 tabs 07/20/24 Previous Rx's ?Medication ?Instructions ?Recorded loratadine 10 mg tablet 10 mg PO DAILY #90 tabs 10/03/19 albuterol sulfate 2.5 mg/3 mL 1.25 mg (1.5 mL) inhalation QID 08/09/22 (0.083 %) solution for nebulization PRN shortness of breath or wheezing #75 mL albuterol sulfate 90 mcg/actuation 2 puff inhalation Q2H PRN PRN #8.5 08/02/23 aerosol inhaler (ProAir HFA) grams prednisone 20 mg tablet 40 mg (2 x 20 mg) PO HS #8 tabs 07/20/24 Allergies Allergy/AdvReac Type Severity Reaction Status Date / Time Penicillins Allergy Mild Skin Rash Unverified 07/20/24 00:27 bee pollen AdvReac Severe Anaphylaxsi Unverified 07/20/24 00:27 s pet dender Allergy Mild Itching Uncoded 07/20/24 00:27 mold AdvReac Severe Anaphylaxsi Uncoded 07/20/24 00:27 s General Stated Complaint: RespSymp DAYO: 3 Review of Systems Narrative: Per HPI Exam Narrative Exam Narrative: Const: WDWN female in moderate respiratory distress, very diaphoretic. VS per triage. HEENT: NC/AT. Normal facial exam. Neck: Supple. Trachea midline. Lungs: Diffuse wheezing throughout. Cor: RRR without murmur. Good radial pulses. GI: Soft/ND/NT. Neuro: A+O x 3. Normal speech, mentation. Cranial nerves II - XII grossly intact. No gross motor or sensory deficit. Ext: No C/C/E. Course Vital Signs Vital signs: Vital Signs Temperature 96.6 F L 07/19/24 23:24 Pulse 105 H 07/19/24 23:24 Respiratory Rate 28 H 07/19/24 23:24 Blood Pressure 125/72 07/19/24 23:24 Pulse Oximetry 98 07/19/24 23:24 Temperature 96.6 F L 07/19/24 23:24 Temperature Source Temporal Artery Scan 07/19/24 23:24 Pulse 105 H 07/19/24 23:24 Respiratory Rate 28 H 07/19/24 23:24 Blood Pressure 125/72 07/19/24 23:24 Blood Pressure Position Supine 07/19/24 23:24 Pulse Oximetry 98 07/19/24 23:24 Oxygen Delivery Method Room Air 07/19/24 23:24 Oxygen Flow Rate 0 07/19/24 23:24 Medical Decision Making Patient presenting with 24 to 36 hours worsening shortness of breath, wheezing. She arrives here in distress with profuse diaphoresis and diffuse wheezing throughout. Started on DuoNeb treatment and will continue on albuterol once DuoNeb completed. She is ordered for IV steroids, IV magnesium. Laboratory studies including VBG to be obtained. Portable chest x-ray and EKG ordered. Patient's EKG is sinus rhythm with no acute ST changes. Portable chest x-ray per my read with no acute cardiopulmonary process. Laboratory studies are unremarkable. VBG shows a normal pCO2. Her sodium and chloride are just minimally elevated with normal kidney function. Potassium, calcium, magnesium are all normal. Troponin normal. Patient much improved after steroids, nebs and magnesium. Still wheezing but work of breathing is now normal. Fluvid is still pending. Will plan another albuterol neb prior to discharge. Will go home with prednisone, follow-up with PCP this week, continue Symbicort and albuterol. Return precautions provided. Imaging Data Radiologic Study: Attestation: I personally reviewed and interpreted this imaging study as follows: Imaging: X-Ray My impression: Portable chest x-ray with no acute cardiopulmonary disease. Lab Data Lab results reviewed: Yes I reviewed the patient's lab results. Lab results narrative: Unremarkable ECG Data Attestation: I personally reviewed and interpreted this ECG (s) as follows: Prior ECG tracings: available for review Interpretation: Normal Critical Care Time Critical Care Time Critical Care Time: Yes Total Critical Care Time: 40 Attestation: Upon my evaluation, this patient had a high probability of imminent or life-threatening deterioration, which required my direct attention, intervention, and personal management. I have personally provided 40 minutes of critical care time exclusive of time spent on separately billable procedures. Time includes monitoring for potential decompensation, ordering of tests and medications, review of laboratory and radiology results, discussion with consultants and documentation . Interventions were performed as documented above in procedures. [facility] All Active Problems (Updated 07/20/24 @ 01:04 by Rudolph Olvera MD) Acute asthma exacerbation (Acute) Nicotine abuse (Chronic) Seasonal allergies (Chronic) Obesity, morbid, BMI 40.0-49.9 (Acute) Medical History GERD (gastroesophageal reflux disease) Asthma Surgical History H/O section History of bilateral tubal ligation Family History Maternal Grandfather Hypertension Maternal Aunt Hypertension Maternal Uncle Diabetes Lung cancer Maternal Uncle Diabetes Maternal Grandmother Diabetes Mother Prediabetes Social History Smoking/Tobacco Use Status: Current-Occasional Tobacco Type: smokeless tobacco Smoking risk assessment performed?: Yes Alcohol Intake: current Alcohol Intake frequency: a few times a week Alcohol type: wine Drug use: Occasionally Substance use type: marijuana Details: patient eats the marijuana gummies Housing: house Do you feel safe at home: Yes Do you feel safe in your relationship?: Yes
[2024-07-19 23:40] LABS: Abs Immature Grans 0.02 10^3/uL (0.0-0.06); Absolute Basophil Count 0.09 10^3/uL (0.0-0.2); Absolute Eosinophil Count 0.46 10^3/uL (0.0-0.7); Absolute Lymphocyte Count 4.19 10^3/uL (1.2-3.4); Absolute Monocyte Count 0.64 10^3/uL (0.1-0.8); Absolute Neutrophil Count 4.81 10^3/uL (1.2-6.7); Basophils % 0.9 %; Eosinophils % 4.5 %; HGB 14.6 g/dL (11.2-15.7); Immature Grans % 0.2 %; MCH 31.2 pg (27.0-33.0); MCHC 33.2 % (32.0-36.0); MCV 94 fL (80-95); MPV 7.8 fL (8.0-11.0); Monocytes % 6.3 %; Neutrophils % 47.1 %; Platelet Count 301 10^3/uL (130-400); RBC 4.68 10^6/uL (3.93-5.22); RDW 13.3 % (11.7-14.6); RDW-SD 45.6 fL; WBC 10.21 10^3/uL (4.4-10.8)
[2024-07-19] MEDS: MAGNESIUM SULFATE 2 GM/50 ML BAG IV_INF (23:40)
[2024-07-19 23:44] LABS: HCO3 (Venous) 27 mmol/L (23-28); TCO2 (Venous) 28 mmol/L (24-29); pCO2 (Venous) 49 mmHg (41-51); pH (Venous) 7.35 (7.31-7.41); pO2 (Venous) 73 mmHg
[2024-07-19 23:45] LABS: BE (Venous) 1 mmol/L (-2-3); O2 Sat (Venous) 93 %
[2024-07-19] MEDS: Albuterol 2.5 MG/3 ML INH SOLN VIAL 7.5 MG UPD (23:46)
[2024-07-20] VITALS (14 sets, daily range): BP systolic 105–126; BP diastolic 56–74; PULSE 72–110; RESP 2–20; O2SAT 87–98
[2024-07-20 00:04] LABS: ALT 20 U/L (14-59); AST 7 U/L (15-37); Albumin 3.1 g/dL (3.4-5.0); Alkaline Phosphatase 80 U/L (46-116); Anion Gap 9.9 mmol/L (3-11); BUN 10 mg/dL (7-18); Bilirubin, Total 0.94 mg/dL (0.2-1.0); CO2 28.1 mmol/L (21.0-32.0); Calcium 9.4 mg/dL (8.5-10.1); Chloride 108 mmol/L (98-107); Estimated GFR 73.49 (mL/min/1.73m2); Glucose 84 mg/dL (74-106); Magnesium 1.9 mg/dL (1.8-2.4); Sodium 146 mmol/L (136-145); Total Protein 6.8 g/dL (6.4-8.2); Troponin I 7 ng/L (<or=51)
--- NOTE | 2024-07-20 00:39 | DI.VRAD_ITS ---
PROCEDURE INFORMATION: Exam: XR Chest Exam date and time: 07/19/2024 11:50 PM Age: 39 years old Clinical indication: Shortness of breath; Patient HX: SOB TECHNIQUE: Imaging protocol: Radiologic exam of the chest. Views: 1 view. COMPARISON: CR XR PORTABLE CHEST AP 08/01/2023 3:37 AM FINDINGS: Lungs: Unremarkable. No consolidation. Pleural spaces: Unremarkable. No pleural effusion. No pneumothorax. Heart/Mediastinum: Unremarkable. No cardiomegaly. Bones/joints: Unremarkable. IMPRESSION: No acute findings. Dictated and Authenticated by: Campbell Osborne MD. Ordering:JANA Galdamez MD
[2024-07-20 00:56] LABS: COVID-19 PCR Negative (Negative); Influenza A PCR Negative (Negative); Influenza B PCR Negative (Negative); RSV PCR Negative (Negative)
[2024-07-20 00:59] LABS: Source Nasopharynx
[2024-07-20] MEDS: Albuterol 2.5 MG/3 ML INH SOLN VIAL 5 MG UPD (01:07)
[2024-07-20] MEDS: Normal Saline 10 ML VIAL IJ (01:30)
--- NOTE | 2024-07-20 01:40 | NUR.NOTE ---
Pt ambulated out of the ER accompanied by her mother. IV removed pt states no questions and understands D/C instructions.
--- NOTE | 2024-07-20 15:08 | NUR.NOTE ---
Accessed Pt chart to locate the Pharmacy that prescription was sent
== END 2024-07-20 01:47 | disposition home or self-care (01) ==
LOC: ER 07-20 01:45
PROVIDERS: Emergency Provider Emergency Medicine; PCP Family Medicine
DX: J45.901 Unspecified asthma with (acute) exacerbation (principal)
CPT/HCPCS: 36415; 80053; 82805; 87637; 93005; 94640; 96365; 99291; 71045; 83605; 83735; 84484; 85025; 93010; J2919; J3475; J7613; J7620

== ENCOUNTER 2024-08-04 03:09 | Inpatient (IN) | payer SELFPAY ==
[2024-08-04] VITALS (67 sets, daily range): BP systolic 99–131; BP diastolic 51–72; PULSE 69–132; RESP 2–28; TEMP 35.8–36.8; O2SAT 90–100
--- NOTE | 2024-08-04 02:45 | RT.EKG_ITS ---
APPROVED REPORT Exam: Resting ECG Reason for Exam: extreme short of breath Patient Location: E HR:122 bpm ECG Measurements Heart Rate 122 AXIS GA 133 P 80 QRSd 84 QRS 77 QT 321 T 70 QTc 458 Conclusion Sinus tachycardia...rate> 99 ST depr, consider ischemia, inferior leads...ST <-0.10mV, II III aVF Normal Wing/Interval Rate related ST changes No STEMI
--- NOTE | 2024-08-04 03:00 | DI.RAD_ITS ---
Exam(s) XR PORTABLE CHEST AP EXAM: XR PORTABLE CHEST AP CLINICAL HISTORY: extreme shortness of breath TECHNIQUE: 2D digital imaging was performed. COMPARISON: CR,XR XR PORTABLE CHEST AP from 07/19/2024 FINDINGS: Exam limited by poor pulmonary inflation. LUNGS: Clear. No pleural abnormality seen. HEART: Normal size. AORTA: Normal diameter. BONES: Unremarkable for age. Soft tissues: Unremarkable. IMPRESSION: No acute findings. DATA REPOSITORY: RADIATION DOSE DELIVERED:
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
[2024-08-04 03:22] LABS: BE (Venous) -1 mmol/L (-2-3); HCO3 (Venous) 27 mmol/L (23-28); O2 Sat (Venous) 63 %; TCO2 (Venous) 25 mmol/L (24-29); pH (Venous) 7.24 (7.31-7.41); pO2 (Venous) 38 mmHg
[2024-08-04 03:24] LABS: Absolute Eosinophil Count 0.25 10^3/uL (0.0-0.7); Basophils % 0.6 %; Eosinophils % 1.4 %; HCT 43.8 % (36.0-46.0); HGB 14.4 g/dL (11.2-15.7); Immature Grans % 1.1 %; Lymphocytes % 20.8 %; MCH 31.2 pg (27.0-33.0); MCHC 32.9 % (32.0-36.0); MCV 95 fL (80-95); MPV 7.9 fL (8.0-11.0); Monocytes % 4.3 %; Neutrophils % 71.8 %; Platelet Count 326 10^3/uL (130-400); RBC 4.62 10^6/uL (3.93-5.22); RDW 13.2 % (11.7-14.6); RDW-SD 46.2 fL; WBC 18.05 10^3/uL (4.4-10.8)
[2024-08-04] MEDS: Albuterol 2.5 MG/3 ML INH SOLN VIAL 15 MG UPD (03:25)
[2024-08-04 03:26] LABS: pCO2 (Venous) 63 mmHg (41-51)
[2024-08-04] MEDS: Ipratropium 0.5 MG/2.5 ML UPD VIAL (03:26)
--- NOTE | 2024-08-04 03:34 | DI.VRAD_ITS ---
PROCEDURE INFORMATION: Exam: XR Chest Exam date and time: 08/04/2024 3:25 AM Age: 39 years old Clinical indication: Patient HX: Extreme shortness of breath TECHNIQUE: Imaging protocol: Radiologic exam of the chest. Views: 1 view. COMPARISON: CR XR PORTABLE CHEST AP 07/19/2024 11:50 PM FINDINGS: Lungs: Unremarkable. No consolidation. Pleural spaces: Unremarkable. No pleural effusion. No pneumothorax. Heart/Mediastinum: Unremarkable. No cardiomegaly. Bones/joints: Unremarkable. IMPRESSION: No acute findings. Dictated and Authenticated by: Campbell Osborne MD. Ordering:JANA Galdamez MD
[2024-08-04 03:35] LABS: Absolute Basophil Count 0.11 10^3/uL (0.0-0.2); Absolute Lymphocyte Count 3.75 10^3/uL (1.2-3.4); Absolute Monocyte Count 0.78 10^3/uL (0.1-0.8); Absolute Neutrophil Count 12.96 10^3/uL (1.2-6.7)
[2024-08-04 03:38] LABS: HCG Qual (Serum) Negative
[2024-08-04 03:41] LABS: ALT 28 U/L (14-59); AST 24 U/L (15-37); Albumin 3.4 g/dL (3.4-5.0); Alkaline Phosphatase 95 U/L (46-116); Anion Gap 12.2 mmol/L (3-11); BUN 10 mg/dL (7-18); Bilirubin, Total 0.57 mg/dL (0.2-1.0); CO2 27.8 mmol/L (21.0-32.0); CREATININE 1.2 mg/dL (0.55-1.02); Chloride 105 mmol/L (98-107); Estimated GFR 59.05 (mL/min/1.73m2); Glucose 252 mg/dL (74-106); Magnesium 3.2 mg/dL (1.8-2.4); Potassium 3.8 mmol/L (3.5-5.1); Sodium 145 mmol/L (136-145); Total Protein 7.2 g/dL (6.4-8.2)
[2024-08-04 04:36] LABS: BE (Venous) 3 mmol/L (-2-3); HCO3 (Venous) 29 mmol/L (23-28); O2 Sat (Venous) 68 %; TCO2 (Venous) 26 mmol/L (24-29); pCO2 (Venous) 54 mmHg (41-51); pH (Venous) 7.34 (7.31-7.41); pO2 (Venous) 37 mmHg
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
[2024-08-04 07:01] LABS: Source Nasal/Nares
[2024-08-04 07:34] LABS: COVID-19 PCR Negative (Negative)
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
[2024-08-04] MEDS: Albuterol/Ipratropium 3 ML UPD VIAL UPD ×3 (08:58→21:00)
[2024-08-04] MEDS: Pantoprazole 40 MG VIAL IVP (10:29)
[2024-08-04] MEDS: methylPREDNISolone SUCC 125 MG VIAL IVP ×2 (10:29→16:53)
[2024-08-04] MEDS: Loratidine 10 MG TAB PO (13:35)
[2024-08-04] MEDS: Montelukast 10 MG TAB PO (13:35)
[2024-08-04] MEDS: busPIRone 5 MG TAB 10 MG PO (13:35)
[2024-08-04] MEDS: Normal Saline Flush 10 ML SYR IVP ×2 (13:36→20:15)
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
--- NOTE | 2024-08-04 18:34 | RESPIRATORY ---
08/04/2024 Pt being given nebulizer by RT department that will be free with no DME or insurance charged. This nebulizer machine was leftover from [employer]. [employer] Compact Nebulizer.
[2024-08-04] MEDS: Acetaminophen 325 MG TAB PO (18:44)
[2024-08-04 21:47] LABS: Hemoglobin A1C 5.6 % (<5.7)
[2024-08-05] VITALS (9 sets, daily range): BP systolic 106–119; BP diastolic 65–74; PULSE 79–107; RESP 2–20; TEMP 36.5–37.2; O2SAT 94–99
[2024-08-05] MEDS: methylPREDNISolone SUCC 125 MG VIAL IVP ×2 (00:10→09:16)
[2024-08-05] MEDS: Albuterol/Ipratropium 3 ML UPD VIAL UPD ×3 (02:13→13:20)
[2024-08-05 08:09] LABS: HCT 40.9 % (36.0-46.0); HGB 13.3 g/dL (11.2-15.7); MCH 31.1 pg (27.0-33.0); MCHC 32.5 % (32.0-36.0); MCV 96 fL (80-95); MPV 8.2 fL (8.0-11.0); Platelet Count 326 10^3/uL (130-400); RBC 4.27 10^6/uL (3.93-5.22); RDW 13.3 % (11.7-14.6); RDW-SD 47.4 fL; WBC 23.74 10^3/uL (4.4-10.8)
[2024-08-05 08:31] LABS: ALT 23 U/L (14-59); AST 6 U/L (15-37); Albumin 2.9 g/dL (3.4-5.0); Alkaline Phosphatase 80 U/L (46-116); Anion Gap 8.5 mmol/L (3-11); BUN 15 mg/dL (7-18); Bilirubin, Total 0.35 mg/dL (0.2-1.0); CO2 24.5 mmol/L (21.0-32.0); CREATININE 1.2 mg/dL (0.55-1.02); Calcium 8.7 mg/dL (8.5-10.1); Chloride 107 mmol/L (98-107); Estimated GFR 59.05 (mL/min/1.73m2); Glucose 168 mg/dL (74-106); Potassium 4.4 mmol/L (3.5-5.1); Sodium 140 mmol/L (136-145); Total Protein 6.5 g/dL (6.4-8.2)
--- NOTE | 2024-08-05 08:49 | PDOC.CMPRO ---
Date of service: 08/05/24 Time of Service: 08:49 Care Management Progress Note Discharge Potential Discharge Needs: PCP F/U Appt Anticipated Barriers to Discharge: None Identified Patient/Family Education Needs: Review discharge instructions, discuss Ask Me Three Transportation: Private vehicle Plan: Anticipate Ryann will be discharged home with no new services when medically stable. She will follow up with her PCP and plan of care and transport with family. CM will follow and continue to assess for discharge needs. SDOH(Care Management) Screening Will the Patient Participate in the Screening?: Yes Do you worry about having a steady place to live?: no In the past 12 months, have you had to go without electric, gas, oil or water in your home?: no Have you or anyone in your house had to go without enough food to eat?: no Has lack of transportation kept you from medical appointments or from doing things needed for daily living?: no Has anyone in your support network made you feel unsafe for any reason?: no
[2024-08-05] MEDS: Normal Saline Flush 10 ML SYR IVP (09:16)
[2024-08-05] MEDS: Pantoprazole 40 MG VIAL IVP (09:16)
[2024-08-05] MEDS: busPIRone 5 MG TAB 10 MG PO (09:16)
[2024-08-05] MEDS: Loratidine 10 MG TAB PO (09:17)
[2024-08-05] MEDS: Montelukast 10 MG TAB PO (09:17)
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
[2024-08-05] MEDS: LORazepam 0.5 MG TAB 0.25 MG PO (12:57)
[2024-08-05] MEDS: Acetaminophen 325 MG TAB PO (12:59)
--- NOTE | 2024-08-05 14:31 | PDOC.CMDIS ---
Date of service: 08/05/24 Time of Service: 14:32 LACE Index Scoring Tool Questions: Length of Stay (in days): 1 Was the patient admitted via the E.D.?: Yes Comorbidities: Chronic Pulmonary Disease E.D. Visits: 3 Answers: Total Score: 9 Risk of Readmission: Low Risk Care Management Discharge Plan Reason for Hospitalization: asthma exacerbation Discharge Plan: Ryann will be discharged home with no new services. A referral was sent to [facility] for assistance with obtaining insurance and a new primary care physician Patient/Family Education Needs: Review of discharge instructions, follow up plan, limitations, and discuss Ask Me Three. SDOH Health Related Social Needs: Health related social needs inadequate housing(Z59.1)
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
== END 2024-08-05 15:40 | disposition home or self-care (01) | DRG 203 ==
LOC: ER 07:01 → MS 08:25
PROVIDERS: Admitting Provider Family Medicine; Emergency Provider Emergency Medicine; PCP Family Medicine; Visit Provider Family Medicine
DX: J45.51 Severe persistent asthma with (acute) exacerbation (principal); E66.01 Morbid (severe) obesity due to excess calories; Z68.38 Body mass index [BMI] 38.0-38.9, adult; R73.9 Hyperglycemia, unspecified; F41.9 Anxiety disorder, unspecified; F17.210 Nicotine dependence, cigarettes, uncomplicated; K21.9 Gastro-esophageal reflux disease without esophagitis
CPT/HCPCS: 00123; 36415; 80053; 82805; 85027; 87635; 93005; 94640; 99291; 71045; 83036; 83735; 84703; 85025; 93010; 94760; 99233; 99239; J1815; J2470; J2919; J7613; J7620; J7644

== ENCOUNTER 2024-08-16 17:26 | Emergency (ER) | payer SELFPAY ==
[2024-08-16] VITALS (26 sets, daily range): BP systolic 95–176; BP diastolic 49–113; PULSE 90–148; RESP 5–35; TEMP 36.8; O2SAT 88–99
[2024-08-16] MEDS: LORazepam 2 MG/ML VIAL 1 MG IVP (17:34)
--- NOTE | 2024-08-16 17:34 | ED.GENADUL_ITS ---
Discharge Plan Disposition Patient Disposition: Home Condition: Improving Discharge Details Clinical Impression: Asthma attack Primary Care Provider: Reese Barrera ED Provider: Rudolph Olvera [place] Meds and New Rx's Prescriptions: Continued montelukast [Singulair] 10 MG tablet 10 mg PO DAILY loratadine 10 mg Tablet 10 mg PO DAILY Qty: 90 1RF buspirone 10 mg tablet 10 mg PO DAILY Patient Comments: TAKE 1 TABLET BY MOUTH TWICE DAILY FOR 14 DAYS budesonide-formoterol [Symbicort] 2 puff inhalation PRN PRN prednisone 20 mg tablet See Taper PO DAILY Qty: 81 0RF Taper: Prednisone 20mg taper 80 mg Twice a day for 5 Days and 0 Hour 60 mg Twice a day for 3 Days and 0 Hour 60 mg Bedtime for 3 Days and 0 Hour 40 mg Bedtime for 3 Days and 0 Hour 20 mg Bedtime for 3 Days and 0 Hour 10 mg Bedtime for 3 Days Rx Instructions: TAPER: 80 mg twice a day for 5 Days; 60 mg twice a day for 3 Days; 60 mg bedtime for 3 Days; 40 mg bedtime for 3 Days; 20 mg bedtime for 3 Days; 10 mg bedtime for 3 Days ipratropium-albuterol 0.5 mg-3 mg(2.5 mg base)/3 mL Solution For Nebulization 3 ml UPD Q6H Qty: 180 0RF lorazepam 0.5 mg tablet 0.25 mg PO TID PRNQty: 8 0RF Rx Instructions: Short course of Lorazepam ordered 3 times per day as needed- further antianxiety regimen to be decided with PCP during follow-up appointment on 08/10/2024 albuterol sulfate 2.5 mg /3 mL (0.083 %) solution for nebulization 1.25 mg IH Q4H PRN (Reason: shortness of breath or wheezing) Qty: 75 2RF albuterol sulfate [ProAir HFA] 200 PUFF HFA aerosol inhaler 2 puff Inhalation Q2H PRN PRNQty: 8.5 0RF Held prednisone 20 mg tablet 40 mg PO HS Qty: 8 0RF Hold Instructions: Resume on 08/22/24. discuss with PCP Discharge Instructions Additional Instructions: You were seen for an acute asthma attack after visiting your mom while she was working. You should continue prednisone burst and taper as previously prescribed. You been provided with an albuterol inhaler for use with your spacer at home. Follow-up with your primary care. Return to ED for recurrent difficulty breathing, chest pain, syncope, neurologic change, other concerns. Referrals: Reese Barrera [Primary Care Provider] - [facility] General Mode of arrival: wheelchair . Date/Time Provider Initiated Documentation: 08/16/24 17:27 . Limitations to Documentation: other (Difficulty breathing) . Information obtained by: patient and RN notes reviewed . HPI Narrative: Patient presenting to ED with acute asthma attack. Patient thinks this one was triggered by incense. She was just seen by me and admitted on the . She is still on 40 mg of prednisone. She did an albuterol neb prior to coming in but is still in extremis on arrival. She reports having a mild attack last night but was fine this morning. Patient has multiple triggers including anxiety. Unable to provide extensive history due to difficulty breathing. Related Data Home Medications ?Medication ?Instructions ?Recorded ?Confirmed montelukast 10 mg tablet 10 mg PO DAILY 07/30/16 08/16/24 (Singulair) loratadine 10 mg tablet 10 mg PO DAILY #90 tabs 10/03/19 08/16/24 albuterol sulfate 90 mcg/actuation 2 puff inhalation Q2H PRN PRN #8.5 08/02/23 08/16/24 aerosol inhaler (ProAir HFA) grams budesonide-formoterol 2 puff inhalation PRN PRN 07/20/24 08/16/24 buspirone 10 mg tablet 10 mg PO DAILY 07/20/24 08/16/24 prednisone 20 mg tablet 40 mg (2 x 20 mg) PO HS #8 tabs 07/20/24 08/16/24 albuterol sulfate 2.5 mg/3 mL 1.25 mg (1.5 mL) inhalation Q4H 08/05/24 08/16/24 (0.083 %) solution for nebulization PRN shortness of breath or wheezing #75 mL ipratropium 0.5 mg-albuterol 3 mg 3 ml UPD Q6H #180 mL 08/05/24 08/16/24 (2.5 mg base)/3 mL nebulization soln lorazepam 0.5 mg tablet 0.25 mg (1/2 x 0.5 mg) PO TID PRN 08/05/24 08/16/24 #8 tabs prednisone 20 mg tablet See Taper PO DAILY #81 tabs 08/05/24 08/16/24 Previous Rx's ?Medication ?Instructions ?Recorded loratadine 10 mg tablet 10 mg PO DAILY #90 tabs 10/03/19 albuterol sulfate 90 mcg/actuation 2 puff inhalation Q2H PRN PRN #8.5 08/02/23 aerosol inhaler (ProAir HFA) grams prednisone 20 mg tablet 40 mg (2 x 20 mg) PO HS #8 tabs 07/20/24 albuterol sulfate 2.5 mg/3 mL 1.25 mg (1.5 mL) inhalation Q4H 08/05/24 (0.083 %) solution for nebulization PRN shortness of breath or wheezing #75 mL ipratropium 0.5 mg-albuterol 3 mg 3 ml UPD Q6H #180 mL 08/05/24 (2.5 mg base)/3 mL nebulization soln lorazepam 0.5 mg tablet 0.25 mg (1/2 x 0.5 mg) PO TID PRN 08/05/24 #8 tabs prednisone 20 mg tablet See Taper PO DAILY #81 tabs 08/05/24 Allergies Allergy/AdvReac Type Severity Reaction Status Date / Time Penicillins Allergy Mild Skin Rash Unverified 08/16/24 18:30 bee pollen AdvReac Severe Anaphylaxsi Unverified 08/16/24 18:30 s pet dender Allergy Mild Itching Uncoded 08/16/24 18:30 mold AdvReac Severe Anaphylaxsi Uncoded 08/16/24 18:30 s General Stated Complaint: SOB/SuddenOnset DAYO: 1 Review of Systems Unobtainable due to (Not obtained due to acuity) Exam Narrative Exam Narrative: Const: WDWN female in respiratory distress. VS per triage. HEENT: NC/AT. Normal facial exam. Neck: Supple. Trachea midline. Lungs: Respiratory distress with prolonged expiratory phase, markedly diminished breath sounds throughout, wheeze. Cor: RRR, tachycardic. Good radial pulses. Neuro: A+O x 3. Cranial nerves II - XII grossly intact. No gross motor or sensory deficit. Ext: No C/C/E. Skin: Diaphoretic. Course Vital Signs Vital signs: Vital Signs Pulse 148 H 08/16/24 17:28 Respiratory Rate 35 H 08/16/24 17:28 Blood Pressure 147/113 H 08/16/24 17:28 Pulse Oximetry 94 08/16/24 17:28 Pulse 148 H 08/16/24 17:28 Respiratory Rate 35 H 08/16/24 17:28 Blood Pressure 147/113 H 08/16/24 17:28 Blood Pressure Position Sitting 08/16/24 17:28 Pulse Oximetry 94 08/16/24 17:28 Oxygen Delivery Method Room Air 08/16/24 17:28 Oxygen Flow Rate 0 08/16/24 17:28 Medical Decision Making Patient presenting with acute asthma attack with some associated anxiety. Sara alnce well-known to me from previous ED visits most recently on the . She is ordered for DuoNeb treatment followed by continuous Xopenex as she is markedly tachycardic sinus tachycardia noted on the monitor. IV established laboratory studies obtained. IV Ativan and IV magnesium ordered. She has already taken prednisone 40 mg today and has been on a steroid burst since her discharge on the . Patient much improved with no distress after DuoNeb and 20 to 30 minutes of Xopenex. Air exchange much improved although still wheezing present. She is comfortable and sleeping. Laboratory studies with elevated white count of 17.5 likely related to steroids and stress. VBG with a pCO2 of 53. Chemistries with minor abnormalities of no significance. Will continue to observe to be sure no recurrent symptoms. Patient still on high-dose steroids so did not given Solu- Medrol here. 20:45 - Patient much improved. Feels back to baseline. She is requesting discharge home. 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 She does have a spacer. She is on a long prednisone taper. She may follow-up with primary care. Return precautions provided. Medical Records Medical records reviewed: Yes I reviewed the patient's medical records. Medical records narrative: Discharge summary from last week Lab Data Lab results reviewed: Yes I reviewed the patient's lab results. Lab results narrative: See MDM Critical Care Time Critical Care Time Critical Care Time: Yes Total Critical Care Time: 45 Attestation: Upon my evaluation, this patient had a high probability of imminent or life- threatening deterioration, which required my direct attention, intervention, and personal management. I have personally provided 45 minutes of critical care time exclusive of time spent on separately billable procedures. Time includes monitoring for potential decompensation, ordering of tests and medications, review of laboratory and radiology results, discussion with consultants and documentation . Interventions were performed as documented above in procedures. PFS All Active Problems (Updated 08/16/24 @ 20:56 by Rudolph Olvera MD) Asthma attack (Acute) Seasonal allergies (Chronic) Obesity, morbid, BMI 40.0-49.9 (Chronic) Medical History Chronic hyperglycemia Chronic anxiety Nicotine abuse GERD (gastroesophageal reflux disease) Asthma Surgical History H/O section History of bilateral tubal ligation Family History Maternal Grandfather Hypertension Maternal Aunt Hypertension Maternal Uncle Diabetes Lung cancer Maternal Uncle Diabetes Maternal Grandmother Diabetes Mother Prediabetes Social History Smoking/Tobacco Use Status: Current-Occasional Tobacco Type: e-cigarettes Smoking risk assessment performed?: Yes Alcohol Intake: current Alcohol Intake frequency: a few times a month Alcohol type: wine Drug use: Occasionally Substance use type: marijuana Details: patient eats the marijuana gummies Housing: apartment Do you feel safe at home: Yes Do you feel safe in your relationship?: Yes
[2024-08-16] MEDS: MAGNESIUM SULFATE 2 GM/50 ML BAG IV_INF (17:35)
[2024-08-16 17:37] LABS: Abs Immature Grans 0.09 10^3/uL (0.0-0.06); Absolute Basophil Count 0.05 10^3/uL (0.0-0.2); Absolute Lymphocyte Count 2.38 10^3/uL (1.2-3.4); Absolute Monocyte Count 0.47 10^3/uL (0.1-0.8); Absolute Neutrophil Count 14.49 10^3/uL (1.2-6.7); Basophils % 0.3 %; HCT 48.1 % (36.0-46.0); HGB 15.6 g/dL (11.2-15.7); Immature Grans % 0.5 %; Lymphocytes % 13.6 %; MCHC 32.4 % (32.0-36.0); MCV 95 fL (80-95); MPV 7.8 fL (8.0-11.0); Monocytes % 2.7 %; Neutrophils % 82.9 %; Platelet Count 330 10^3/uL (130-400); RBC 5.04 10^6/uL (3.93-5.22); RDW 13.5 % (11.7-14.6); RDW-SD 47.8 fL; WBC 17.48 10^3/uL (4.4-10.8)
[2024-08-16] MEDS: Normal Saline Flush 10 ML SYR IVP (17:38)
[2024-08-16] MEDS: Albuterol/Ipratropium 3 ML UPD VIAL UPD (17:40)
[2024-08-16] MEDS: Levalbuterol 1.25 MG/3 ML UPD VIAL 3.75 MG UPD (17:40)
[2024-08-16 17:48] LABS: BE (Venous) 4 mmol/L (-2-3); HCO3 (Venous) 30 mmol/L (23-28); O2 Sat (Venous) 86 %; TCO2 (Venous) 26 mmol/L (24-29); pCO2 (Venous) 53 mmHg (41-51); pH (Venous) 7.36 (7.31-7.41); pO2 (Venous) 51 mmHg
[2024-08-16 17:48] LABS: Anion Gap 11.3 mmol/L (3-11); BUN 18 mg/dL (7-18); CO2 29.7 mmol/L (21.0-32.0); CREATININE 1.2 mg/dL (0.55-1.02); Chloride 105 mmol/L (98-107); Estimated GFR 59.05 (mL/min/1.73m2); Glucose 154 mg/dL (74-106); Potassium 4.6 mmol/L (3.5-5.1); Sodium 146 mmol/L (136-145)
--- NOTE | 2024-08-16 20:01 | NUR.NOTE ---
Nursing Note: patient resting quietly at this time. She says she feels much better.
[2024-08-16] MEDS: Albuterol HFA 8 GM 60 PUFF INH IH (21:06)
== END 2024-08-16 21:12 | disposition home or self-care (01) ==
PROVIDERS: Emergency Provider Emergency Medicine; PCP Family Medicine
DX: J45.901 Unspecified asthma with (acute) exacerbation (principal); F17.290 Nicotine dependence, other tobacco product, uncomplicated
CPT/HCPCS: 80048; 82805; 96365; 96375; 99284; 83735; 85025; 94640; J2060; J3475; J7614; J7620

== ENCOUNTER 2024-09-20 15:42 | Emergency (ER) | payer SELFPAY ==
[2024-09-20] VITALS (17 sets, daily range): BP systolic 107–131; BP diastolic 73–96; PULSE 91–125; RESP 5–24; TEMP 36.8; O2SAT 91–97
--- NOTE | 2024-09-20 16:00 | DI.RAD_ITS ---
Exam(s) XR PORTABLE CHEST AP EXAM: XR PORTABLE CHEST AP CLINICAL HISTORY: covid, mild hypoxia TECHNIQUE: 2D digital imaging was performed. COMPARISON: CR,XR XR PORTABLE CHEST AP from 08/04/2024 FINDINGS: The exam is limited by under penetration. LUNGS: Clear. No pleural abnormality seen. HEART: Normal size. AORTA: Normal diameter. BONES: Unremarkable for age. Soft tissues: Unremarkable. IMPRESSION: No acute findings. DATA REPOSITORY: RADIATION DOSE DELIVERED:
[2024-09-20] MEDS: Albuterol/Ipratropium 3 ML UPD VIAL 9 ML UPD (16:35)
--- NOTE | 2024-09-20 17:17 | ED.GENADUL_ITS ---
Discharge Plan Disposition Patient Disposition: Home Condition: Stable Discharge Details Clinical Impression: COVID-19 Primary Care Provider: Reese Barrera ED Provider: Javier Reyes Home Meds and New Rx's Prescriptions: New nirmatrelvir-ritonavir 300 mg (150 mg x 2)-100 mg tablets,dose pack See Rx Instructions .ROUTE .COMPLEX Qty: 30 0RF Rx Instructions: take TWO 150 mg tablets of nirmatrelvir with ONE 100 mg tablet of ritonavir twice daily for 5 days Continued montelukast [Singulair] 10 MG tablet 10 mg PO DAILY loratadine 10 mg Tablet 10 mg PO DAILY Qty: 90 1RF buspirone 10 mg tablet 10 mg PO DAILY Patient Comments: TAKE 1 TABLET BY MOUTH TWICE DAILY FOR 14 DAYS budesonide-formoterol [Symbicort] 2 puff inhalation PRN PRN prednisone 20 mg tablet 40 mg PO HS Qty: 8 0RF prednisone 20 mg tablet See Taper PO DAILY Qty: 81 0RF Taper: Prednisone 20mg taper 80 mg Twice a day for 5 Days and 0 Hour 60 mg Twice a day for 3 Days and 0 Hour 60 mg Bedtime for 3 Days and 0 Hour 40 mg Bedtime for 3 Days and 0 Hour 20 mg Bedtime for 3 Days and 0 Hour 10 mg Bedtime for 3 Days Rx Instructions: TAPER: 80 mg twice a day for 5 Days; 60 mg twice a day for 3 Days; 60 mg bedtime for 3 Days; 40 mg bedtime for 3 Days; 20 mg bedtime for 3 Days; 10 mg bedtime for 3 Days ipratropium-albuterol 0.5 mg-3 mg(2.5 mg base)/3 mL Solution For Nebulization 3 ml UPD Q6H Qty: 180 0RF lorazepam 0.5 mg tablet 0.25 mg PO TID PRNQty: 8 0RF Rx Instructions: Short course of Lorazepam ordered 3 times per day as needed- further antianxiety regimen to be decided with PCP during follow-up appointment on 08/10/2024 albuterol sulfate 2.5 mg /3 mL (0.083 %) solution for nebulization 1.25 mg IH Q4H PRN (Reason: shortness of breath or wheezing) Qty: 75 2RF albuterol sulfate [ProAir HFA] 200 PUFF HFA aerosol inhaler 2 puff Inhalation Q2H PRN PRNQty: 8.5 0RF Discharge Instructions Instructions: COVID-19 ED, Nirmatrelvir and Ritonavir Additional Instructions: You were seen in the emergency department for your COVID-19 infection, you are positive on rapid antigen testing, your chest x-ray shows patchy infiltrates consistent with COVID. I have sent you home with an inhaler as you have asthma. Sent a prescription for Paxlovid to [facility] in [place]. Please use therapeutic dosing of Tylenol (acetamenophen) & Advil (ibuprofen) in an alternating fashion as follows: Take 1000mg of Tylenol every 6 hours without missing doses- that is 4 times per day. Custodial in between the Tylenol dosings, take 400-600mg of Advil also on a 6 hour schedule, that is also 4 times per day. The daily maximum dosing of Tylenol is 4000mg, and the daily maximum dosing of Advil is 2400mg. This is safe to do for weeks. Please note that some common cold medications & prescription pain medications may contain acetamenophen and you need to read OTC drug labels and factor that in to maximum daily dosings. Please return to the emergency department for any severe increases in shortness of breath, respiratory distress, intractable nausea or vomiting, chest pain with tachycardia. Stand Alone Forms: Work Release Referrals: Reese Barrera [Primary Care Provider] - Discharge Data Discharge Date/Time-TO BE ENTERED AT DEPARTURE: 09/20/24 18:16 HPI General Date/Time Provider Initiated Documentation: 09/20/24 16:06 . 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 Quality described as cough, shortness of breath, fatigue, no radiation to high fever, profound shortness of breath, chest pain, hemoptysis, nausea/vomiting. Severity is described as moderate. Palliating factors include has at-home nebulizer treatment. Provoking factors include nothing specific. Events leading up to the incident/Associated Symptoms: Patient is vaccinated and boosted for COVID-19. Patient not anticoagulated. Related Data Home Medications ?Medication ?Instructions ?Recorded ?Confirmed montelukast 10 mg tablet 10 mg PO DAILY 07/30/16 09/20/24 (Singulair) loratadine 10 mg tablet 10 mg PO DAILY #90 tabs 10/03/19 09/20/24 albuterol sulfate 90 mcg/actuation 2 puff inhalation Q2H PRN PRN #8.5 08/02/23 09/20/24 aerosol inhaler (ProAir HFA) grams budesonide-formoterol 2 puff inhalation PRN PRN 07/20/24 09/20/24 buspirone 10 mg tablet 10 mg PO DAILY 07/20/24 09/20/24 prednisone 20 mg tablet 40 mg (2 x 20 mg) PO HS #8 tabs 07/20/24 09/20/24 albuterol sulfate 2.5 mg/3 mL 1.25 mg (1.5 mL) inhalation Q4H 08/05/24 09/20/24 (0.083 %) solution for nebulization PRN shortness of breath or wheezing #75 mL ipratropium 0.5 mg-albuterol 3 mg 3 ml UPD Q6H #180 mL 08/05/24 09/20/24 (2.5 mg base)/3 mL nebulization soln lorazepam 0.5 mg tablet 0.25 mg (1/2 x 0.5 mg) PO TID PRN 08/05/24 09/20/24 #8 tabs prednisone 20 mg tablet See Taper PO DAILY #81 tabs 08/05/24 09/20/24 nirmatrelvir 300 mg (150 mg See Rx Instructions PO .COMPLEX 09/20/24 x2)-ritonavir 100 mg tablet,dose #30 dose pk pack Previous Rx's ?Medication ?Instructions ?Recorded loratadine 10 mg tablet 10 mg PO DAILY #90 tabs 10/03/19 albuterol sulfate 90 mcg/actuation 2 puff inhalation Q2H PRN PRN #8.5 08/02/23 aerosol inhaler (ProAir HFA) grams prednisone 20 mg tablet 40 mg (2 x 20 mg) PO HS #8 tabs 07/20/24 albuterol sulfate 2.5 mg/3 mL 1.25 mg (1.5 mL) inhalation Q4H 08/05/24 (0.083 %) solution for nebulization PRN shortness of breath or wheezing #75 mL ipratropium 0.5 mg-albuterol 3 mg 3 ml UPD Q6H #180 mL 08/05/24 (2.5 mg base)/3 mL nebulization soln lorazepam 0.5 mg tablet 0.25 mg (1/2 x 0.5 mg) PO TID PRN 08/05/24 #8 tabs prednisone 20 mg tablet See Taper PO DAILY #81 tabs 08/05/24 nirmatrelvir 300 mg (150 mg See Rx Instructions PO .COMPLEX 09/20/24 x2)-ritonavir 100 mg tablet,dose #30 dose pk pack Allergies Allergy/AdvReac Type Severity Reaction Status Date / Time Penicillins Allergy Mild Skin Rash Unverified 09/20/24 15:49 bee pollen AdvReac Severe Anaphylaxsi Unverified 09/20/24 15:49 s pet dender Allergy Mild Itching Uncoded 09/20/24 15:49 mold AdvReac Severe Anaphylaxsi Uncoded 09/20/24 15:49 s General Stated Complaint: RespSymp DAYO: 3 Review of Systems All systems reviewed & are unremarkable except as noted in HPI and below Exam Narrative Exam Narrative: GENERAL APPEARANCE: Well-nourished, non-toxic, awake and alert, atraumatic, no acute distress. SKIN: Warm, pink, dry, intact, without rashes/lesions/ulcerations. HEAD: Normocephalic, atraumatic, normal hair distribution for gender/age. EYES: Normal conjunctiva, no exudates on lids/lashes. ENT: Nares patent, no circumoral cyanosis, no facial swelling NECK: Supple, trachea midline, painless cervical ROM. LUNGS/CHEST: Lungs-mild inspiratory wheezes diffusely, no overt rhonchi, non- labored respirations, normal A/P diameter, symmetrical expansion, no chest wall deformity HEART (CV/PV): Regular rate and rhythm without murmur, no peripheral edema, no JVD. ABDOMEN: Soft, non-distended, no guarding. MSK: Normal ROM, no swelling/deformity to bilateral UEs or LEs, moving all extremities without weakness, no cyanosis, spine midline without tenderness, normal curvature. NEURO: Mental Status AAOx4 - alert to person, place, time, events No facial droop, no forehead involvement. Motor: No focal weakness - strength 5/5 in bilateral UEs and LEs, proximal and distal, symmetric. Sensory: sensation intact to light touch globally. Gait normal: patient ambulated without ataxia into ED room. PSYCH: euthymic, cooperative, pleasant, appropriate speech Course Vital Signs Vital signs: Vital Signs Temperature 36.8 C 09/20/24 15:46 Pulse 125 H 09/20/24 15:46 Respiratory Rate 20 09/20/24 15:46 Pulse Oximetry 91 L 09/20/24 15:46 Temperature 36.8 C 09/20/24 15:46 Pulse 98 H 09/20/24 16:35 Respiratory Rate 19 09/20/24 16:35 Respiratory Effort Non-Labored, Short of Breath 09/20/24 16:37 Respiratory Depth Normal 09/20/24 16:37 Pulse Oximetry 97 09/20/24 16:35 Oxygen Delivery Method Room Air 09/20/24 16:35 Oxygen Flow Rate 0 09/20/24 16:35 Pain Level 0 09/20/24 15:46 Medical Decision Making This dictation utilizes [id number] dictation software and may contain unedited grammatical errors. 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 Quality described as cough, shortness of breath, fatigue, no radiation to high fever, profound shortness of breath, chest pain, hemoptysis, nausea/vomiting. Severity is described as moderate. Palliating factors include has at-home nebulizer treatment. Provoking factors include nothing specific. Events leading up to the incident/Associated Symptoms: Patient is vaccinated and boosted for COVID-19. Patients' medical history: Asthma, chronic anxiety, nicotine abuse, GERD, seasonal allergies, obesity. 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 Pertinent exam findings / vital signs include mild expiratory wheezes diffusely without overt rhonchi, no severe respiratory distress. Differential / pathologies of concern include COVID-19, not hypoxic respiratory failure. Diagnostic studies of: -COVID rapid antigen, chest x-ray. -COVID-positive -Chest x-ray shows some patchy infiltrates consistent with COVID-19, radiologist read shows no acute pathology Interventions of: -9 mL DuoNeb, albuterol inhaler to go, Rx for Paxlovid. ED Course/Assessment/Plan: 39-year-old female presents with active COVID-19 infection, mild hypoxia at 91% on arrival I did provide a DuoNeb with resolution of expiratory wheezes and patient is satting 97% on room air, recommend continuing Tylenol and ibuprofen and provided albuterol inhaler to go in and Rx for Paxlovid, stressed strict return criteria for any increasing respiratory distress. Findings not consistent with hypoxic respiratory failure. Disposition of Covid-19. Patient verbalized understanding of the plan and return to ED criteria and engaged in shared decision making. Medical Records Medical records reviewed: Yes I reviewed the patient's medical records. Imaging Data Radiologic Study: Attestation: I personally reviewed and interpreted this imaging study as follows: Imaging: X-Ray Radiologist's impression: EXAM: XR PORTABLE CHEST AP CLINICAL HISTORY: covid, mild hypoxia TECHNIQUE: 2D digital imaging was performed. COMPARISON: CR,XR XR PORTABLE CHEST AP from 08/04/2024 FINDINGS: The exam is limited by under penetration. LUNGS: Clear. No pleural abnormality seen. HEART: Normal size. AORTA: Normal diameter. BONES: Unremarkable for age. Soft tissues: Unremarkable. IMPRESSION: No acute findings. Lab Data Lab results reviewed: Yes I reviewed the patient's lab results. Lab results narrative: POC Covid Ag (+) Quality:SDOH Health Related Social Needs: Health related social needs inadequate housing(Z59.1) PFSH All Active Problems (Updated 09/20/24 @ 17:30 by DEANNE Rollins) COVID-19 (Acute) Seasonal allergies (Chronic) Obesity, morbid, BMI 40.0-49.9 (Chronic) Medical History Chronic hyperglycemia Chronic anxiety Nicotine abuse GERD (gastroesophageal reflux disease) Asthma Surgical History H/O section History of bilateral tubal ligation Family History Maternal Grandfather Hypertension Maternal Aunt Hypertension Maternal Uncle Diabetes Lung cancer Maternal Uncle Diabetes Maternal Grandmother Diabetes Mother Prediabetes Social History Smoking/Tobacco Use Status: Current every day Tobacco Type: e-cigarettes Smoking risk assessment performed?: Yes Alcohol Intake: current Alcohol Intake frequency: a few times a month Alcohol type: wine Drug use: Occasionally Substance use type: marijuana Details: patient eats the marijuana gummies Housing: apartment Do you feel safe at home: Yes Do you feel safe in your relationship?: Yes
[2024-09-20] MEDS: Albuterol HFA 8 GM 60 PUFF INH IH (18:12)
[2024-09-20] MEDS: Inhaler, Assist Device 1 EACH MC (18:12)
== END 2024-09-20 18:16 | disposition home or self-care (01) ==
PROVIDERS: Emergency Provider Physician Assistant; PCP Family Medicine
DX: U07.1 COVID-19 (principal); J45.909 Unspecified asthma, uncomplicated; F17.290 Nicotine dependence, other tobacco product, uncomplicated
CPT/HCPCS: 87426; 94640; 99285; 71045; 99284; J7620

== ENCOUNTER 2024-11-20 13:13 | Emergency (ER) | payer SELFPAY ==
--- NOTE | 2024-11-20 13:15 | RT.EKG_ITS ---
APPROVED REPORT Exam: Resting ECG Reason for Exam: rib chest pain Patient Location: E HR:130 bpm ECG Measurements Heart Rate 130 AXIS TX 128 P 79 QRSd 82 QRS 69 QT 300 T 70 QTc 442 Conclusion Sinus tachycardia...rate> [address] depression, diffuse leads...ST <-0.07mV, ant/lat/inf Physician: no stemi
[2024-11-20 13:16] VITALS: BP 129/88; PULSE 134; RESP 20; TEMP 36.9; O2SAT 98
--- NOTE | 2024-11-20 13:55 | W.ED.GENAD ---
Discharge Plan Disposition Patient Disposition: Home Condition: Good Discharge Details Clinical Impression: Chest wall contusion Primary Care Provider: Reese Barrera ED Provider: Joseline Schneider Home Meds and New Rx's Prescriptions: Continued montelukast [Singulair] 10 MG tablet 10 mg PO DAILY loratadine 10 mg Tablet 10 mg PO DAILY Qty: 90 1RF buspirone 10 mg tablet 10 mg PO DAILY Patient Comments: TAKE 1 TABLET BY MOUTH TWICE DAILY FOR 14 DAYS budesonide-formoterol [Symbicort] 2 puff inhalation PRN PRN prednisone 20 mg tablet 40 mg PO HS Qty: 8 0RF prednisone 20 mg tablet See Taper PO DAILY Qty: 81 0RF Taper: Prednisone 20mg taper 80 mg Twice a day for 5 Days and 0 Hour 60 mg Twice a day for 3 Days and 0 Hour 60 mg Bedtime for 3 Days and 0 Hour 40 mg Bedtime for 3 Days and 0 Hour 20 mg Bedtime for 3 Days and 0 Hour 10 mg Bedtime for 3 Days Rx Instructions: TAPER: 80 mg twice a day for 5 Days; 60 mg twice a day for 3 Days; 60 mg bedtime for 3 Days; 40 mg bedtime for 3 Days; 20 mg bedtime for 3 Days; 10 mg bedtime for 3 Days ipratropium-albuterol 0.5 mg-3 mg(2.5 mg base)/3 mL Solution For Nebulization 3 ml UPD Q6H Qty: 180 0RF lorazepam 0.5 mg tablet 0.25 mg PO TID PRNQty: 8 0RF Rx Instructions: Short course of Lorazepam ordered 3 times per day as needed- further antianxiety regimen to be decided with PCP during follow-up appointment on 08/10/2024 albuterol sulfate 2.5 mg /3 mL (0.083 %) solution for nebulization 1.25 mg IH Q4H PRN (Reason: shortness of breath or wheezing) Qty: 75 2RF albuterol sulfate [ProAir HFA] 200 PUFF HFA aerosol inhaler 2 puff Inhalation Q2H PRN PRNQty: 8.5 0RF nirmatrelvir-ritonavir 300 mg (150 mg x 2)-100 mg tablets,dose pack See Rx Instructions .ROUTE .COMPLEX Qty: 30 0RF Rx Instructions: take TWO 150 mg tablets of nirmatrelvir with ONE 100 mg tablet of ritonavir twice daily for 5 days Discharge Instructions Instructions: Rib Fracture or Bruised Rib ED Additional Instructions: As we discussed, your chest x-ray is reassuring, no evidence to suggest fracture or issue with your lung. Your abdominal exam is reassuring. I am concerned that the contusion of your chest wall may be causing some rib pain and this can be challenging to treat given your moving frequently. I do encourage hydration. Continue with Tylenol and ibuprofen as needed for discomfort. Please take as directed on the packaging. Please use the incentive spirometer provided by nursing staff to help you fully open your lungs and prevent any pneumonia form. AT topical treatment options such as lidocaine patches which are [id number]. Please call your primary care provider follow-up with them in 1 to 2 weeks for reevaluation. If you develop shortness of breath or difficulty breathing, increased pain or other new/worsening symptoms please seek care urgently once again. Stand Alone Forms: Work Release Referrals: Reese Barrera [Primary Care Provider] - [facility] General Date/Time Provider Initiated Documentation: 11/20/24 13:44. Limitations to Documentation: no limitations. Information obtained by: patient, family and RN notes reviewed. History of Present Illness 39 year old F presents to the emergency department with the chief complaint of left sided rib pain after fall, described as moderate, Quality is described as stabbing, and is localized to the chest (left lateral chest). Patient reports no radiation (stays along the line of the left lower rib). Patient started experiencing this day(s) (5) and it has been constant. No relieving factors improve symptom(s), No exacerbating factors reported . Patient notes no other symptoms.. Patient did receive the following treatments prior to arrival, none Related Data Home Medications ?Medication ?Instructions ?Recorded ?Confirmed montelukast 10 mg tablet 10 mg PO DAILY 07/30/16 11/20/24 (Singulair) loratadine 10 mg tablet 10 mg PO DAILY #90 tabs 10/03/19 11/20/24 albuterol sulfate 90 mcg/actuation 2 puff inhalation Q2H PRN PRN #8.5 08/02/23 11/20/24 aerosol inhaler (ProAir HFA) grams budesonide-formoterol 2 puff inhalation PRN PRN 07/20/24 11/20/24 buspirone 10 mg tablet 10 mg PO DAILY 07/20/24 11/20/24 prednisone 20 mg tablet 40 mg (2 x 20 mg) PO HS #8 tabs 07/20/24 11/20/24 albuterol sulfate 2.5 mg/3 mL 1.25 mg (1.5 mL) inhalation Q4H 08/05/24 11/20/24 (0.083 %) solution for nebulization PRN shortness of breath or wheezing #75 mL ipratropium 0.5 mg-albuterol 3 mg 3 ml UPD Q6H #180 mL 08/05/24 11/20/24 (2.5 mg base)/3 mL nebulization soln lorazepam 0.5 mg tablet 0.25 mg (1/2 x 0.5 mg) PO TID PRN 08/05/24 11/20/24 #8 tabs prednisone 20 mg tablet See Taper PO DAILY #81 tabs 08/05/24 11/20/24 nirmatrelvir 300 mg (150 mg See Rx Instructions PO .COMPLEX 09/20/24 11/20/24 x2)-ritonavir 100 mg tablet,dose #30 dose pk pack Previous Rx's ?Medication ?Instructions ?Recorded loratadine 10 mg tablet 10 mg PO DAILY #90 tabs 10/03/19 albuterol sulfate 90 mcg/actuation 2 puff inhalation Q2H PRN PRN #8.5 08/02/23 aerosol inhaler (ProAir HFA) grams prednisone 20 mg tablet 40 mg (2 x 20 mg) PO HS #8 tabs 07/20/24 albuterol sulfate 2.5 mg/3 mL 1.25 mg (1.5 mL) inhalation Q4H 08/05/24 (0.083 %) solution for nebulization PRN shortness of breath or wheezing #75 mL ipratropium 0.5 mg-albuterol 3 mg 3 ml UPD Q6H #180 mL 08/05/24 (2.5 mg base)/3 mL nebulization soln lorazepam 0.5 mg tablet 0.25 mg (1/2 x 0.5 mg) PO TID PRN 08/05/24 #8 tabs prednisone 20 mg tablet See Taper PO DAILY #81 tabs 08/05/24 nirmatrelvir 300 mg (150 mg See Rx Instructions PO .COMPLEX 09/20/24 x2)-ritonavir 100 mg tablet,dose #30 dose pk pack Allergies Allergy/AdvReac Type Severity Reaction Status Date / Time Penicillins Allergy Mild Skin Rash Verified 11/20/24 13:20 bee pollen AdvReac Severe Anaphylaxsi Verified 11/20/24 13:20 s pet dender Allergy Mild Itching Uncoded 11/20/24 13:20 mold AdvReac Severe Anaphylaxsi Uncoded 11/20/24 13:20 s General Stated Complaint: Chest/Rib DAYO: 4 Review of Systems Constitutional Constitutional: Reports as per HPI, Denies chills, Denies fever(s), Denies headache(s), Denies lethargy and Denies poor appetite Eyes Eyes: Denies change in vision ENT Ears, Nose, Mouth, and Throat: Denies dizziness and Denies headache(s) Cardiovascular Cardiovascular: Reports as per HPI, Denies dyspnea and Denies dyspnea on exertion Respiratory Respiratory: Reports as per HPI, Denies chest congestion, Denies cough, Denies dyspnea and Denies dyspnea on exertion Gastrointestinal Gastrointestinal: Reports as per HPI, Denies abdominal pain, Denies diarrhea, Denies nausea and Denies vomiting Musculoskeletal Musculoskeletal: Reports as per HPI Integumentary/Breasts Skin/Breast: Reports as per HPI and Denies rash Neurologic Neurologic: Reports as per HPI, Denies dizziness and Denies headache(s) Exam Const General: cooperative, healthy appearing, comfortable, no acute distress, well developed and anxious Nutritional Appearance: average body habitus and well nourished Orientation: alert, awake and oriented x3 Chest Chest: normal inspection of the chest, normal palpation of entire chest wall, no crepitus, localized rib tenderness with anteroposterior compression (left lateral lower ribs), tenderness and No rash Resp Effort & Inspection: normal respiratory effort, able to speak in complete sentences and no respiratory distress Auscultation: clear to auscultation bilaterally, no rales, no rhonchi and no wheezes Cardio Rate: regular rate Rhythm: regular rhythm Heart Sounds: S1 normal and S2 normal GI Inspection: normal to inspection, no edema and non-distended Palpation: soft, no hepatosplenomegaly, not firm, no guarding, not rigid and nontender Auscultation: normal bowel sounds Back/Spine/Pelvis Thoracic/Lumbar Spine: thoracic and lumbar spine normal to inspection Skin General skin exam: no rashes or lesions noted Trauma: no lacerations or abrasions Neuro General: patient alert, patient awake and patient oriented x3 Cognition: normal cognition Speech: speech normal Gait: normal gait Course Vital Signs Vital signs: Vital Signs Temperature 36.9 C 11/20/24 13:16 Pulse 134 H 11/20/24 13:16 Respiratory Rate 20 11/20/24 13:16 Blood Pressure 129/88 11/20/24 13:16 Pulse Oximetry 98 11/20/24 13:16 Temperature 36.9 C 11/20/24 13:16 Pulse 134 H 11/20/24 13:16 Respiratory Rate 20 11/20/24 13:16 Blood Pressure 129/88 11/20/24 13:16 Pulse Oximetry 98 11/20/24 13:16 Pain Level 8 11/20/24 13:16 Medical Decision Making Patient's pleasant 39-year-old female brought in by her mom with chief complaint of left side pain after falling 5 days ago. She reports that she slipped on the ice. Initially said 2 days but feels that now on review it was closer to 5 days ago. States that while she landed on her left flank she immediately had pain anterior and indicates the left anterior lower ribs as well as the upper abdomen is area of source of discomfort. No nausea or vomiting or change in her appetite. States that she has had discomfort with bowel movements due to straining but otherwise is doing well with typical urinary and bowel habits. She has had some increased discomfort with inspiration but no real difficulty breathing or substernal chest pain. Due to department acuity, I did evaluate the patient briefly in the room with her permission as her heart rate was noted to be 134. I do hear good air movement bilaterally do not suspect a pneumothorax at this time. Not noting crepitus. She notes she is very anxious and has been uncomfortable, believe this is why is tachycardic. Patient reports the pain does not get any worse. She has not had any change in her breathing over the past 5 days, has been more consistent than anything else. Lungs are clear appropriate. Aside from the tachycardia, normal cardiac exam. I do not appreciate any crepitus, palpable deformity. No abdominal pain with palpation although this is along the lower ribs. Seems to be more associated with the rib itself. No ecchymosis or evidence of trauma. No pain over the midline spine. X-ray was obtained, no acute abnormalities we will proceed by the radiologist. No evidence to suggest pneumothorax, rib fracture. Reevaluated the patient. She does appear much more calm/sleeping when I first came in the room. She received Tylenol and ibuprofen. Will give a lidocaine patch at this as well. I did perform bedside FAST exam and did not appreciate any abdominal bleeding and patient's not been unstable. She was initially quite tachycardic but on palpation, this is noted to be downtrending, likely associated with her anxiety. Given the level of discomfort patient and I discussed a CT scan but she is declined as that she does not currently have insurance. We did discuss the modality to help get this and she does have the resources to be able to do so. We discussed that if she is uncomfortable and continues to have severe pain, we should continue with imaging. She agrees that some of this may be anxiety driven. We will give her an incentive spirometer to help with any prevention of pneumonia as patient does have lateral chest wall contusion and has been noted to have some more shallow breathing patterns. We discussed continued pain management at home. Work note given at patient's request. Return precautions were discussed. Encouraged follow-up with primary care. All her questions and concerns were addressed and patient is in agreement this plan. This documentation was generated using [employer] system, please disregard any oddities of phrase or misspellings. Quality:SDOH Health Related Social Needs: No Data to Display PFSH All Active Problems (Updated 11/20/24 @ 15:29 by DEANNE Jacob) Chest wall contusion (Acute) COVID-19 (Acute) Seasonal allergies (Chronic) Obesity, morbid, BMI 40.0-49.9 (Chronic) Medical History Chronic hyperglycemia Chronic anxiety Nicotine abuse GERD (gastroesophageal reflux disease) Asthma Surgical History H/O section History of bilateral tubal ligation Family History Maternal Grandfather Hypertension Maternal Aunt Hypertension Maternal Uncle Diabetes Lung cancer Maternal Uncle Diabetes Maternal Grandmother Diabetes Mother Prediabetes Social History Smoking/Tobacco Use Status: Current every day Tobacco Type: e-cigarettes Smoking risk assessment performed?: Yes Alcohol Intake: current Alcohol Intake frequency: a few times a month Alcohol type: wine Drug use: Occasionally Substance use type: marijuana Details: patient eats the marijuana gummies Housing: apartment Do you feel safe at home: Yes Do you feel safe in your relationship?: Yes
--- NOTE | 2024-11-20 14:15 | DI.RAD_ITS ---
Exam(s) XR RIBS LT W PA LAT CHEST EXAM: XR RIBS LT W PA LAT CHEST CLINICAL HISTORY: fall, left rib pain TECHNIQUE: 2D digital imaging was performed. Six images are obtained. COMPARISON: CR XR PORTABLE CHEST AP from 09/20/2024 FINDINGS: MEDIASTINUM: Normal. HEART: Normal. PULMONARY VASCULATURE: Normal. LUNGS: Clear. PLEURAL SPACE: No pleural effusion or pneumothorax. BONE:Within normal limits for the patient's age. LEFT RIBS: Normal. OTHER FINDINGS:Normal. IMPRESSION: 1. No acute pulmonary findings. 2. Unremarkable left ribs. DATA REPOSITORY: RADIATION DOSE DELIVERED:
[2024-11-20] MEDS: Lidocaine 5% Patch 1 PATCH TP (15:32)
[2024-11-20] MEDS: Acetaminophen 500 MG TAB 1000 MG PO (15:32)
[2024-11-20] MEDS: Ibuprofen 600 MG TAB PO (15:32)
[2024-11-20 19:08] VITALS: BP 129/88; PULSE 134; RESP 20; TEMP 36.9; O2SAT 98
== END 2024-11-20 19:08 | disposition home or self-care (01) ==
PROVIDERS: Emergency Provider Physician Assistant; PCP Family Medicine
DX: S20.212A Contusion of left front wall of thorax, initial encounter (principal); W00.0XXA Fall on same level due to ice and snow, initial encounter
CPT/HCPCS: 93005; 99285; 71046; 71100; 93010; 99284

== ENCOUNTER 2024-12-11 14:04 | Inpatient (IN) | payer SELFPAY ==
[2024-12-11] VITALS (51 sets, daily range): BP systolic 91–197; BP diastolic 54–98; PULSE 94–155; RESP 5–32; TEMP 36; O2SAT 90–97
--- NOTE | 2024-12-11 14:00 | RT.EKG_ITS ---
APPROVED REPORT Exam: Resting ECG Reason for Exam: SOB Patient Location: E HR:135 bpm ECG Measurements Heart Rate 135 AXIS MS 126 P 79 QRSd 85 QRS 73 QT 298 T 27 QTc 447 Conclusion Sinus tachycardia...rate> [address] depression, inferior leads...ST <-0.07mV, II III aVF Rate related ST changes. There are no significant changes compared to prior EKG performed on 11/20/2024 at 13:22.
--- NOTE | 2024-12-11 14:12 | W.ED.GENAD ---
Discharge Plan Disposition Patient Disposition: Admit to [facility] Condition: Improving Discharge Details Clinical Impression: Acute asthma exacerbation, Acute anxiety Primary Care Provider: Reese Barrera ED Provider: Rudolph Olvera [place] Meds and New Rx's Prescriptions: No Action montelukast [Singulair] 10 MG tablet 10 mg PO DAILY loratadine 10 mg Tablet 10 mg PO DAILY Qty: 90 1RF buspirone 10 mg tablet 10 mg PO DAILY Patient Comments: TAKE 1 TABLET BY MOUTH TWICE DAILY FOR 14 DAYS budesonide-formoterol [Symbicort] 2 puff inhalation PRN PRN ipratropium-albuterol 0.5 mg-3 mg(2.5 mg base)/3 mL Solution For Nebulization 3 ml UPD Q6H Qty: 180 0RF lorazepam 0.5 mg tablet 0.25 mg PO TID PRNQty: 8 0RF Rx Instructions: Short course of Lorazepam ordered 3 times per day as needed- further antianxiety regimen to be decided with PCP during follow-up appointment on 08/10/2024 albuterol sulfate 2.5 mg /3 mL (0.083 %) solution for nebulization 1.25 mg IH Q4H PRN (Reason: shortness of breath or wheezing) Qty: 75 2RF albuterol sulfate [ProAir HFA] 200 PUFF HFA aerosol inhaler 2 puff Inhalation Q2H PRN PRNQty: 8.5 0RF HPI General Mode of arrival: EMS. Date/Time Provider Initiated Documentation: 12/11/24 14:09. Limitations to Documentation: other. Information obtained by: patient, EMS and RN notes reviewed. HPI Narrative: Patient presents to ED by ambulance with respiratory distress/shortness of breath, history of asthma and anxiety. Patient apparently fine yesterday. Has a history of environmental allergies and asthma. She is unsure of what potentially set off her asthma today. She apparently went through an entire inhaler and only continue to get worse. Eventually EMS activated. She was placed on CPAP and received IM Solu-Medrol, IM epinephrine, IM Versed, 2 DuoNeb treatments. She arrives to ED diaphoretic, tachycardic, and respiratory distress but with normal mental status and significant anxiety. Related Data Home Medications ?Medication ?Instructions ?Recorded ?Confirmed montelukast 10 mg tablet 10 mg PO DAILY 07/30/16 12/11/24 (Singulair) loratadine 10 mg tablet 10 mg PO DAILY #90 tabs 10/03/19 12/11/24 albuterol sulfate 90 mcg/actuation 2 puff inhalation Q2H PRN PRN #8.5 08/02/23 12/11/24 aerosol inhaler (ProAir HFA) grams budesonide-formoterol 2 puff inhalation PRN PRN 07/20/24 12/11/24 buspirone 10 mg tablet 10 mg PO DAILY 07/20/24 11/20/24 albuterol sulfate 2.5 mg/3 mL 1.25 mg (1.5 mL) inhalation Q4H 08/05/24 12/11/24 (0.083 %) solution for nebulization PRN shortness of breath or wheezing #75 mL ipratropium 0.5 mg-albuterol 3 mg 3 ml UPD Q6H #180 mL 08/05/24 12/11/24 (2.5 mg base)/3 mL nebulization soln lorazepam 0.5 mg tablet 0.25 mg (1/2 x 0.5 mg) PO TID PRN 08/05/24 12/11/24 #8 tabs Previous Rx's ?Medication ?Instructions ?Recorded loratadine 10 mg tablet 10 mg PO DAILY #90 tabs 10/03/19 albuterol sulfate 90 mcg/actuation 2 puff inhalation Q2H PRN PRN #8.5 08/02/23 aerosol inhaler (ProAir HFA) grams albuterol sulfate 2.5 mg/3 mL 1.25 mg (1.5 mL) inhalation Q4H 08/05/24 (0.083 %) solution for nebulization PRN shortness of breath or wheezing #75 mL ipratropium 0.5 mg-albuterol 3 mg 3 ml UPD Q6H #180 mL 08/05/24 (2.5 mg base)/3 mL nebulization soln lorazepam 0.5 mg tablet 0.25 mg (1/2 x 0.5 mg) PO TID PRN 08/05/24 #8 tabs Allergies Allergy/AdvReac Type Severity Reaction Status Date / Time Penicillins Allergy Mild Skin Rash Verified 02/28/25 13:20 bee pollen AdvReac Severe Anaphylaxsi Verified 11/20/24 13:20 s pet dender Allergy Mild Itching Uncoded 11/20/24 13:20 mold AdvReac Severe Anaphylaxsi Uncoded 11/20/24 13:20 s General Stated Complaint: SOB/SuddenOnset DAYO: 1 Exam Narrative Exam Narrative: Const: WDWN female, diaphoretic, anxious, respiratory distress. VS per triage. HEENT: NC/AT. Normal facial exam. Neck: Supple. Trachea midline. Lungs: Some wheezing in upper lungs, diminished throughout more so in the bases. Cor: Tachycardia but regular. Good radial pulses. Neuro: A+O x 3. Normal speech, mentation, gait. Cranial nerves II - XII grossly intact. No gross motor or sensory deficit. Ext: No C/C/E. Medical Decision Making Patient presenting to ED with acute asthma exacerbation, anxiety. Patient known to me from previous ED encounters. While she does have legitimate asthma and has been intubated in the past anxiety plays a large role in some of her symptoms. She was taken off CPAP and placed on BiPAP. IV was established here. Patient received 2 mg of lorazepam IV. 1 L of fluid and 2 g of magnesium ordered. 7.5 mg albuterol neb started. Laboratory studies, EKG, portable chest x-ray ordered. With interventions as described above patient has improved. Her diaphoresis has resolved. She is still tachycardic but likely related to the IM epinephrine. Breath sounds a little more open at this time. Still has increased work of breathing but not in distress and tolerating the BiPAP. VBG with a pH 7.2 and a pCO2 of 69. 15:15 - Patient with elevated white count 18.4, may be secondary to stress reaction as well as epinephrine dosing. Chemistries unremarkable. Patient with improved air movement but complaining of some increasing difficulty breathing and tightness again. Still fairly sleepy from the IV lorazepam. Again, there is always some anxiety involved with this patient with acute asthma exacerbations. She is given another 7.5 mg of albuterol. Repeat VBG is ordered. Will give a subdissociative dose of ketamine at 20 mg for bronchodilator effect as well as to potentially help with her anxiety. Continue BiPAP for now and will attempt to avoid intubation. 16:15 - Patient's chest x-ray per my read with no acute cardiopulmonary process. Definitely much better air movement but now with significant wheezing likely related to her better air exchange. Beginning to look anxious again but is more awake so will give another dose of lorazepam 1 mg. I have discussed with respiratory and will discontinue BiPAP to place patient on continuous albuterol heart neb and then back to BiPAP. Repeat VBG a little better with pH now 7.24, pCO2 67. 18:45 - Patient doing well of BiPAP on oxymask after neb. Third VBG with pH 7.28 and pCO2 63. Continues to have wheezing but has good air exchange at this point. I do think she would benefit from admission to the ICU and close monitoring. I have discussed this with patient and family. Discussed with hospitalist. Medical Records Medical records reviewed: Yes I reviewed the patient's medical records. Imaging Data Radiologic Study: Attestation: I personally reviewed and interpreted this imaging study as follows: Imaging: X-Ray My impression: Chest x-ray: See MDM. Lab Data Lab results reviewed: Yes I reviewed the patient's lab results. Lab results narrative: See [facility] ECG Data Attestation: I personally reviewed and interpreted this ECG (s) as follows: Prior ECG tracings: available for review Interpretation: See MDM/EKG Critical Care Time Critical Care Time Critical Care Time: Yes Total Critical Care Time: 75 Attestation: Upon my evaluation, this patient had a high probability of imminent or life-threatening deterioration, which required my direct attention, intervention, and personal management. I have personally provided 75 minutes of critical care time exclusive of time spent on separately billable procedures. Time includes monitoring for potential decompensation, ordering of tests and medications, review of laboratory and radiology results, discussion with consultants and documentation. Interventions were performed as documented above in procedures. [facility] All Active Problems (Updated 12/11/24 @ 18:56 by Rudolph Olvera MD) Acute anxiety (Acute) Acute asthma exacerbation (Acute) Acute respiratory failure with hypoxia (Acute) Acute asthma exacerbation (Acute) Seasonal allergies (Chronic) Obesity, morbid, BMI 40.0-49.9 (Chronic) Medical History Chronic hyperglycemia Chronic anxiety Nicotine abuse GERD (gastroesophageal reflux disease) Asthma Surgical History H/O section History of bilateral tubal ligation Family History Maternal Grandfather Hypertension Maternal Aunt Hypertension Maternal Uncle Diabetes Lung cancer Maternal Uncle Diabetes Maternal Grandmother Diabetes Mother Prediabetes Social History Smoking/Tobacco Use Status: Current every day Tobacco Type: e-cigarettes Smoking risk assessment performed?: Yes Alcohol Intake: current Alcohol Intake frequency: a few times a month Alcohol type: wine Drug use: Occasionally Substance use type: marijuana Details: patient eats the marijuana gummies Housing: apartment Do you feel safe at home: Yes Do you feel safe in your relationship?: Yes
[2024-12-11] MEDS: Albuterol 2.5 MG/3 ML INH SOLN VIAL 7.5 MG UPD ×2 (14:17→14:59)
[2024-12-11] MEDS: LORazepam 2 MG/ML VIAL IVP (14:18)
[2024-12-11] MEDS: MAGNESIUM SULFATE 2 GM/50 ML BAG IV_INF (14:18)
[2024-12-11 14:20] LABS: BE (Venous) -3 mmol/L (-2-3); HCO3 (Venous) 26 mmol/L (23-28); O2 Sat (Venous) 98 %; TCO2 (Venous) 24 mmol/L (24-29); pO2 (Venous) 114 mmHg
[2024-12-11 14:21] LABS: Abs Immature Grans 0.09 10^3/uL (0.0-0.06); Absolute Basophil Count 0.13 10^3/uL (0.0-0.2); Absolute Eosinophil Count 0.37 10^3/uL (0.0-0.7); Absolute Lymphocyte Count 6.59 10^3/uL (1.2-3.4); Absolute Monocyte Count 0.92 10^3/uL (0.1-0.8); Absolute Neutrophil Count 10.27 10^3/uL (1.2-6.7); Basophils % 0.7 %; HCT 47.9 % (36.0-46.0); HGB 15.3 g/dL (11.2-15.7); Immature Grans % 0.5 %; MCH 30.5 pg (27.0-33.0); MCHC 31.9 % (32.0-36.0); MCV 95 fL (80-95); MPV 7.8 fL (8.0-11.0); Platelet Count 390 10^3/uL (130-400); RBC 5.02 10^6/uL (3.93-5.22); RDW 13.4 % (11.7-14.6); RDW-SD 47.3 fL; pCO2 (Venous) 69 mmHg (41-51); pH (Venous) 7.18 (7.31-7.41)
[2024-12-11] MEDS: Lactated Ringers 1,000 ML 1000 ML IV (14:32)
[2024-12-11 14:49] LABS: WBC 18.37 10^3/uL (4.4-10.8)
[2024-12-11 14:50] LABS: Lymphocytes % 35.9 %; Neutrophils % 55.9 %
[2024-12-11 14:51] LABS: Anion Gap 6.3 mmol/L (3-11); BUN 18 mg/dL (7-18); CO2 28.7 mmol/L (21.0-32.0); Calcium 8.9 mg/dL (8.5-10.1); Chloride 108 mmol/L (98-107); Estimated GFR 73.49 (mL/min/1.73m2); Glucose 208 mg/dL (74-106); Potassium 4.4 mmol/L (3.5-5.1); Sodium 143 mmol/L (136-145)
[2024-12-11] MEDS: Ketamine 500 MG/10 ML VIAL 20 MG IVP (15:23)
--- NOTE | 2024-12-11 15:36 | DI.RAD_ITS ---
Exam(s) XR PORTABLE CHEST AP EXAM: XR PORTABLE CHEST AP CLINICAL HISTORY: SOB TECHNIQUE: 2D digital imaging was performed of the chest. Two images were obtained. AP views were obtained. COMPARISON: CR XR RIBS LT W PA LAT CHEST from 11/20/2024 FINDINGS: MEDIASTINUM: Normal. HEART: Normal. PULMONARY VASCULATURE: Normal. LUNGS: Clear. PLEURAL SPACE: No pleural effusion or pneumothorax. BONE:Within normal limits for the patient's age. OTHER FINDINGS:Normal. IMPRESSION: No acute pulmonary findings. DATA REPOSITORY: RADIATION DOSE DELIVERED:
[2024-12-11 15:52] LABS: BE (Venous) 1 mmol/L (-2-3); HCO3 (Venous) 29 mmol/L (23-28); O2 Sat (Venous) 66 %; TCO2 (Venous) 26 mmol/L (24-29); pH (Venous) 7.24 (7.31-7.41); pO2 (Venous) 40 mmHg
[2024-12-11 16:21] LABS: pCO2 (Venous) 67 mmHg (41-51)
[2024-12-11] MEDS: LORazepam 2 MG/ML VIAL 1 MG IVP (16:29)
[2024-12-11 17:20] LABS: COVID-19 PCR Negative (Negative); Influenza A PCR Negative (Negative); Influenza B PCR Negative (Negative); RSV PCR Negative (Negative); Source Nasopharynx
[2024-12-11 18:15] LABS: BE (Venous) 3 mmol/L (-2-3); HCO3 (Venous) 30 mmol/L (23-28); O2 Sat (Venous) 57 %; TCO2 (Venous) 27 mmol/L (24-29); pH (Venous) 7.28 (7.31-7.41); pO2 (Venous) 33 mmHg
[2024-12-11 18:23] LABS: pCO2 (Venous) 63 mmHg (41-51)
--- NOTE | 2024-12-11 18:50 | HPE_ITS ---
Date of service: 12/11/24 Time of Service: 18:51 Assessment and Plan Assessment and plan (1) Acute asthma exacerbation: Status: Acute Assessment and plan: - As noted in HPI, patient received IM Solu-Medrol, epinephrine, Versed and 2 DuoNeb treatments in the field -She was placed on CPAP via EMS and continued to require until she was ultimately transitioned to 5 L oxy mask in the emergency department -Given severity of exacerbation we will continue IV Solu-Medrol, 60 mg twice daily -Every 2 hours as needed albuterol, every 4 hours scheduled DuoNebs (2) Acute respiratory failure with hypoxia: Status: Acute Assessment and plan: - Secondary to acute exacerbation of asthma as noted above -Currently on 5 L oxy mask -Wean O2 as tolerated with goal oxygen saturation of greater than 92% (3) Chronic anxiety: Assessment and plan: - Patient has a known history of chronic anxiety -Understandably, anxiety is significantly heightened during periods of respiratory distress -Continue every 3 hour 1 mg IV Ativan for respiratory distress and anxiety (4) Seasonal allergies: Status: Chronic Assessment and plan: - Continue home loratadine (5) Obesity, morbid, BMI 40.0-49.9: Status: Chronic Assessment and plan: - Encourage ongoing weight loss discussion with PCP History of Present Illness History of Present Illness Chief Complaint: Shortness of breath Narrative: 39-year-old female with significant past medical history of asthma with seasonal allergies and significant anxiety presents to the emergency department via ambulance for shortness of breath. Patient states that earlier in the morning she began to have sudden worsening of shortness of breath and went through an entire inhaler throughout the day without any improvement prompting her to call EMS. She denied any fever, headache, lightheadedness, dizziness, nausea vomiting or diarrhea. Upon EMSs arrival the patient was placed on CPAP, she received IM Solu-Medrol, IM epinephrine, IM Versed and 2 DuoNeb treatments. Upon arrival to the emergency department she was tachycardic, tachypneic, diaphoretic was mentating normally but was experiencing significant anxiety. She continued to require CPAP but was saturating at 94% with 6 L through the CPAP. CBC showed white count of 18 likely secondary to demargination and steroid use, CMP was unremarkable and VBG initially showed a pH of 7.18 with a CO2 of 69. Patient received additional doses of IV Ativan as well as nebulizer treatments and ultimately was able to be placed on a 5 L oxy mask with improvement in her anxiety, respiratory distress and her ABG with subsequent pH being 7.28 and CO2 down to 63. At which time emergency room physician paged hospitalist for admission for patient with acute exacerbation of asthma, acute hypoxic respiratory failure, and significant anxiety. Review of Systems All systems reviewed & are unremarkable except as noted in HPI and below PFSH All Active Problems (Updated 12/11/24 @ 18:56 by Rudolph Olvera MD) Acute anxiety (Acute) Acute asthma exacerbation (Acute) Acute respiratory failure with hypoxia (Acute) Acute asthma exacerbation (Acute) Seasonal allergies (Chronic) Obesity, morbid, BMI 40.0-49.9 (Chronic) Medical History Chronic hyperglycemia Chronic anxiety Nicotine abuse GERD (gastroesophageal reflux disease) Asthma Surgical History H/O section History of bilateral tubal ligation Family History Maternal Grandfather Hypertension Maternal Aunt Hypertension Maternal Uncle Diabetes Lung cancer Maternal Uncle Diabetes Maternal Grandmother Diabetes Mother Prediabetes Social History Smoking/Tobacco Use Status: Current every day Tobacco Type: e-cigarettes Smoking risk assessment performed?: Yes Alcohol Intake: current Alcohol Intake frequency: a few times a month Alcohol type: wine Drug use: Occasionally Substance use type: marijuana Details: patient eats the marijuana gummies Housing: apartment Do you feel safe at home: Yes Do you feel safe in your relationship?: Yes Meds Allergies and Home Medications Allergies Allergy/AdvReac Type Severity Reaction Status Date / Time Penicillins Allergy Mild Skin Rash Verified 11/20/24 13:20 bee pollen AdvReac Severe Anaphylaxsi Verified 11/20/24 13:20 s pet dender Allergy Mild Itching Uncoded 11/20/24 13:20 mold AdvReac Severe Anaphylaxsi Uncoded 11/20/24 13:20 s Home Medications ?Medication ?Instructions ?Recorded ?Confirmed ?Type montelukast 10 mg tablet 10 mg PO DAILY 07/30/16 12/11/24 History (Singulair) loratadine 10 mg tablet 10 mg PO DAILY #90 tabs 10/03/19 12/11/24 Rx albuterol sulfate 90 mcg/actuation 2 puff inhalation Q2H PRN PRN #8.5 08/02/23 12/11/24 Rx aerosol inhaler (ProAir HFA) grams budesonide-formoterol 2 puff inhalation PRN PRN 07/20/24 12/11/24 History buspirone 10 mg tablet 10 mg PO DAILY 07/20/24 11/20/24 History albuterol sulfate 2.5 mg/3 mL 1.25 mg (1.5 mL) inhalation Q4H 08/05/24 12/11/24 Rx (0.083 %) solution for nebulization PRN shortness of breath or wheezing #75 mL ipratropium 0.5 mg-albuterol 3 mg 3 ml UPD Q6H #180 mL 08/05/24 12/11/24 Rx (2.5 mg base)/3 mL nebulization soln lorazepam 0.5 mg tablet 0.25 mg (1/2 x 0.5 mg) PO TID PRN 08/05/24 12/11/24 Rx #8 tabs Exam Narrative Exam Narrative: Well-appearing, fatigued female laying in bed in no acute distress, tired awakens to verbal stimuli, ANO x 4, heart regular rhythm, lungs diffuse expiratory wheezing throughout but with good air movement, abdomen obese, soft, nontender, nondistended Results Labs 12/11/24 14:15 12/11/24 14:15 Labs: Laboratory Results - last 24 hr 12/11/24 12/11/24 12/11/24 14:15 15:47 16:36 WBC 18.37 H RBC 5.02 Hgb 15.3 Hct 47.9 H MCV 95 MCH 30.5 MCHC 31.9 L RDW 13.4 Plt Count 390 MPV 7.8 L Immature Gran % 0.5 Neutrophils % 55.9 Lymphocytes % 35.9 Monocytes % 5.0 Eosinophils % 2.0 Basophils % 0.7 Nucleated RBC % 0.0 Absolute Neutrophils 10.27 H Absolute Lymphocytes 6.59 H Absolute Monocytes 0.92 H Absolute Eosinophils 0.37 Absolute Basophils 0.13 VBG pH 7.18 L* 7.24 L VBG pCO2 69 H* 67 H* VBG pO2 114 40 VBG HCO3 26 29 H VBG Total CO2 24 26 VBG O2 Saturation 98 66 VBG Base Excess -3 L 1 Sodium 143 Potassium 4.4 Chloride 108 H Carbon Dioxide 28.7 Anion Gap 6.3 BUN 18 Creatinine 1.0 Est GFR (CKD-EPI 2020) 73.49 Glucose 208 H Calcium 8.9 Magnesium 2.0 COVID-19 Source Nasopharynx SARS-CoV-2 (PCR) Negative Influenza Type A (PCR) Negative Influenza Type B (PCR) Negative RSV (PCR) Negative 12/11/24 18:00 WBC RBC Hgb Hct MCV MCH MCHC RDW Plt Count MPV Immature Gran % Neutrophils % Lymphocytes % Monocytes % Eosinophils % Basophils % Nucleated RBC % Absolute Neutrophils Absolute Lymphocytes Absolute Monocytes Absolute Eosinophils Absolute Basophils VBG pH 7.28 L VBG pCO2 63 H* VBG pO2 33 VBG HCO3 30 H VBG Total CO2 27 VBG O2 Saturation 57 VBG Base Excess 3 Sodium Potassium Chloride Carbon Dioxide Anion Gap BUN Creatinine Est GFR (CKD-EPI 2020) Glucose Calcium Magnesium COVID-19 Source SARS-CoV-2 (PCR) Influenza Type A (PCR) Influenza Type B (PCR) RSV (PCR) Last Vital Signs Pulse 94 H 12/11/24 18:45 Resp 20 12/11/24 18:45 BP 120/76 12/11/24 18:31 Pulse Ox 93 12/11/24 18:45 Time Spent Time spent with Patient: >75 minutes Time was spent: preparing to see the patient(eg.review tests), obtaining and/or reviewing separately otained hiistory, ordering medications,tests, procedures, referring, communicating with other health physician assistant primary care, indepentently interpreting results, counseling the patient and care coordination
--- NOTE | 2024-12-11 20:45 | W.PC.ACHO ---
Registration Status: Primary Language: Preferred Language: ED Information & Data Chief Complaint SOB/SuddenOnset 12/11/24 14:42 Triage Note BIBA 3 duoneb x2 albuterol 12/11/24 14:04 125 solumedrol .3 epi 2.5 versed im, Cpap applied, diminished wheeze all stokes via EMS hx asthma Medical / Surgical History (Last Reviewed 12/11/24 @ 14:37 by Rudolph Olvera MD) Chronic hyperglycemia Chronic anxiety Nicotine abuse GERD (gastroesophageal reflux disease) Asthma (Last Reviewed 12/11/24 @ 14:37 by Rudolph Olvera MD) H/O section History of bilateral tubal ligation Most Recent Vital Signs Temperature 36.0 C L 12/11/24 20:15 Temperature Source Temporal Artery Scan 12/11/24 20:15 Pulse 110 H 12/11/24 19:37 Pulse 107 H 12/11/24 19:37 Respiratory Rate 18 12/11/24 19:37 Respiratory Effort Normal 12/11/24 20:15 Respiratory Depth Normal 12/11/24 20:15 Respiratory Pattern Normal 12/11/24 20:15 Blood Pressure 123/73 12/11/24 19:37 Blood Pressure Mean 84 12/11/24 19:37 Pulse Oximetry 93 12/11/24 19:37 Oxygen Delivery Method OxyMask 12/11/24 19:37 Oxygen Flow Rate 5 12/11/24 19:37 Fraction of Inspired Oxygen (FIO2) 35 12/11/24 15:21 Pain Level 0 12/11/24 20:15 Allergies Penicillins Allergy (Mild, Verified 11/20/24 13:20) Skin Rash bee pollen Adverse Reaction (Severe, Verified 11/20/24 13:20) Anaphylaxsis pet dender Allergy (Mild, Uncoded 11/20/24 13:20) Itching mold Adverse Reaction (Severe, Uncoded 11/20/24 13:20) Anaphylaxsis Precautions Isolation Standard precaution 12/11/24 14:35 Active Medications Generic Name Dose Route Start Last Admin Trade Name Freq PRN Reason Stop Dose Admin Albuterol Sulfate 10 mg/ 0 mg 12/11/24 16:30 12/11/24 16:27 Sodium Chloride 9 ml UPD 10 mg DIRECTED YNES Administration IV IV Catheter Type [Right Saline Lock Antecubital] IV Catheter Gauge [Right 18 Antecubital] Diet Orders Category Date Time Status Nothing Per Oral [DIET] Nutrition 12/12/24 Breakfast Ordered Diagnostics 12/11/24 12/11/24 12/11/24 Range/Units 18:00 16:36 15:47 WBC (4.4-10.8) 10^3/uL RBC (3.93-5.22) 10^6/uL Hgb (11.2-15.7) g/dL Hct (36.0-46.0) % MCV (80-95) fL MCH (27.0-33.0) pg MCHC (32.0-36.0) % RDW (11.7-14.6) % Plt Count (130-400) 10^3/uL MPV (8.0-11.0) fL Immature Gran % % Neutrophils % % Lymphocytes % % Monocytes % % Eosinophils % % Basophils % % Nucleated RBC % (0.0-0.3) % Absolute Neutrophils (1.2-6.7) 10^3/uL Absolute Lymphocytes (1.2-3.4) 10^3/uL Absolute Monocytes (0.1-0.8) 10^3/uL Absolute Eosinophils (0.0-0.7) 10^3/uL Absolute Basophils (0.0-0.2) 10^3/uL VBG pH 7.28 L 7.24 L (7.31-7.41) VBG pCO2 63 H* 67 H* (41-51) mmHg VBG pO2 33 40 mmHg VBG HCO3 30 H 29 H (23-28) mmol/L VBG Total CO2 27 26 (24-29) mmol/L VBG O2 Saturation 57 66 % VBG Base Excess 3 1 (-2-3) mmol/L Sodium (136-145) mmol/L Potassium (3.5-5.1) mmol/L Chloride (98-107) mmol/L Carbon Dioxide (21.0-32.0) mmol/L Anion Gap (3-11) mmol/L BUN (7-18) mg/dL Creatinine (0.55-1.02) mg/dL Est GFR (CKD-EPI 2020) (mL/min/1.73m2) Glucose (74-106) mg/dL Calcium (8.5-10.1) mg/dL Magnesium (1.8-2.4) mg/dL COVID-19 Source Nasopharynx SARS-CoV-2 (PCR) Negative (Negative) Influenza Type A (PCR) Negative (Negative) Influenza Type B (PCR) Negative (Negative) RSV (PCR) Negative (Negative) 12/11/24 Range/Units 14:15 WBC 18.37 H (4.4-10.8) 10^3/uL RBC 5.02 (3.93-5.22) 10^6/uL Hgb 15.3 (11.2-15.7) g/dL Hct 47.9 H (36.0-46.0) % MCV 95 (80-95) fL MCH 30.5 (27.0-33.0) pg MCHC 31.9 L (32.0-36.0) % RDW 13.4 (11.7-14.6) % Plt Count 390 (130-400) 10^3/uL MPV 7.8 L (8.0-11.0) fL Immature Gran % 0.5 % Neutrophils % 55.9 % Lymphocytes % 35.9 % Monocytes % 5.0 % Eosinophils % 2.0 % Basophils % 0.7 % Nucleated RBC % 0.0 (0.0-0.3) % Absolute Neutrophils 10.27 H (1.2-6.7) 10^3/uL Absolute Lymphocytes 6.59 H (1.2-3.4) 10^3/uL Absolute Monocytes 0.92 H (0.1-0.8) 10^3/uL Absolute Eosinophils 0.37 (0.0-0.7) 10^3/uL Absolute Basophils 0.13 (0.0-0.2) 10^3/uL VBG pH 7.18 L* (7.31-7.41) VBG pCO2 69 H* (41-51) mmHg VBG pO2 114 mmHg VBG HCO3 26 (23-28) mmol/L VBG Total CO2 24 (24-29) mmol/L VBG O2 Saturation 98 % VBG Base Excess -3 L (-2-3) mmol/L Sodium 143 (136-145) mmol/L Potassium 4.4 (3.5-5.1) mmol/L Chloride 108 H (98-107) mmol/L Carbon Dioxide 28.7 (21.0-32.0) mmol/L Anion Gap 6.3 (3-11) mmol/L BUN 18 (7-18) mg/dL Creatinine 1.0 (0.55-1.02) mg/dL Est GFR (CKD-EPI 2020) 73.49 (mL/min/1.73m2) Glucose 208 H (74-106) mg/dL Calcium 8.9 (8.5-10.1) mg/dL Magnesium 2.0 (1.8-2.4) mg/dL COVID-19 Source SARS-CoV-2 (PCR) (Negative) Influenza Type A (PCR) (Negative) Influenza Type B (PCR) (Negative) RSV (PCR) (Negative) Intake and Output - 24 Hour Total 12/11/24 14:01 thru 12/11/24 20:15 Intake Total 1070 Balance 1070 Weight 101.7 kg Intake: IV 1070 Falls Risk Assessment History of Falls No History 12/11/24 20:15 Contributing Factors Unstable,Impairments 12/11/24 20:15 Ambulatory Aids Independent 12/11/24 20:15 Tubes/Lines W/no contributing factors 12/11/24 20:15 Gait Evaluation W/no contributing factors 12/11/24 20:15 Cognition No cognitive impairment 12/11/24 20:15 Fall Total Score 26 12/11/24 20:15 Level of Risk Moderate Risk 12/11/24 20:15 Problems (Last Reviewed 12/11/24 @ 14:37 by Rudolph Olvera MD) Acute anxiety (Acute) Acute asthma exacerbation (Acute) Acute respiratory failure with hypoxia (Acute) Acute asthma exacerbation (Acute) Seasonal allergies (Chronic) Obesity, morbid, BMI 40.0-49.9 (Chronic) v v v v v v v v v Sending and/or Receiving Nurses: Please use comment section below to note any information pertinent to the patient hand-off not included above. Information / Comments: Report received from: Ildefonso Duggan RN
[2024-12-11] MEDS: Normal Saline Flush 10 ML SYR IVP (21:49)
[2024-12-11] MEDS: Albuterol/Ipratropium 3 ML UPD VIAL UPD (21:50)
[2024-12-12] VITALS (18 sets, daily range): BP systolic 100–118; BP diastolic 57–75; PULSE 81–119; RESP 5–22; TEMP 36.6–36.9; O2SAT 87–96
[2024-12-12] MEDS: Albuterol/Ipratropium 3 ML UPD VIAL UPD ×3 (01:41→10:12)
[2024-12-12 08:45] LABS: HGB 13.6 g/dL (11.2-15.7); MCH 30.8 pg (27.0-33.0); MCHC 33.2 % (32.0-36.0); MCV 93 fL (80-95); MPV 7.9 fL (8.0-11.0); Platelet Count 295 10^3/uL (130-400); RBC 4.41 10^6/uL (3.93-5.22); RDW 13.8 % (11.7-14.6); RDW-SD 47.6 fL; WBC 15.69 10^3/uL (4.4-10.8)
[2024-12-12 09:02] LABS: Anion Gap 8.6 mmol/L (3-11); BUN 17 mg/dL (7-18); CO2 28.4 mmol/L (21.0-32.0); CREATININE 0.9 mg/dL (0.55-1.02); Chloride 107 mmol/L (98-107); Glucose 119 mg/dL (74-106); Potassium 4.5 mmol/L (3.5-5.1); Sodium 144 mmol/L (136-145)
--- NOTE | 2024-12-12 09:02 | INITIAL_ITS ---
Date of service: 12/12/24 Time of Service: 09:02 Care Management Initial Assmt Initial Assessment Reason for Hospitalization: Acute exacerbation of asthma Functional Status/Living Situation Patient Presentation: Ryann was lying in bed when CM met with her. She stated that she is feeling much better, and asked if she would be ready for discharge today. Per report, was considering watching her overnight again. CM relayed this information to MD, who met with her again, and with shared decision making, determined that she could be discharged today. Ryann reported that she does not have current health insurance, but that she just started a job at the [employer], and will have access to insurance within 60 days. She stated that she previously worked at [employer] for about 15 years, then did some travel working, but is now looking forward to settling down at one place. CM discussed [employer] for retro payment for her past medical bills (including this stay), as well as the financial assistance provided by [facility]. CM will send a referral to [facility] for insurance support. Ryann stated that her mother is supportive, and will drive her home when ready. CM will continue to follow. Town of Residence: [place] Natural Supports: Mother, lives locally Employment Status: Employed ([employer]) Instrumental Activities of Daily Living (ADLs): Independent Medications Medication Management: No Issues/Barriers identified Advance Directives Advance Directives: Do you have an Advance Directive: N 07/30/16 05:38 AD On File at [facility]: N 07/30/16 05:38 Date Asked 11/20/24 11/20/24 13:15 AD Date Reviewed COLST On File at [facility] No 08/09/22 19:09 COLST Date Scanned Code Status Resuscitation Status Full Code Insurance Coverage/Financial Issues Insurance: self pay; CM will send [facility] referral Care Team Visit Care Team Role Provider Type Rudolph Titus MD MD [facility] STAFF PHYSICIAN Reese Barrera Primary Care Provider NON-[facility] STAFF PHYSICIAN Rudolph Olvera MD Emergency Provider [facility] STAFF PHYSICIAN Joe Simms MD Admit Provider [facility] STAFF PHYSICIAN Attending Provider Discharge Potential Discharge Needs: PCP F/U Appt Anticipated Barriers to Discharge: None Identified Patient/Family Education Needs: Review discharge instructions, discuss Ask Me Three Transportation: Private vehicle Plan: Anticipate Ryann will return home once medically cleared. She will transport home via private vehicle. She will follow up with her PCP and discharge plan of care. CM will continue to follow. Social Determinants of Health Screening Social Determinants of Health last assessed: 12/12/24 Will the Patient Participate in the Screening?: Yes Do you worry about having a steady place to live?: no Problems where you live: no known problems In the past 12 months, have you had to go without electric, gas, oil or water in your home?: no Have you or anyone in your house had to go without enough food to eat?: no Has lack of transportation kept you from medical appointments or from doing things needed for daily living?: no Has anyone in your life made you feel unsafe or unsupported?: no How hard is it for you to pay for the very basics like food, housing, medical care, and heating? Would you say it is:: Not hard at all Do you want help finding or keeping work or a job?: I do not need or want help If for any reason you need help with day-to-day activities such as bathing, preparing meals, shopping, managing finances, etc., do you get the help you need?: I get all the help I need How often do you feel lonely or isolated from those around you?: Never Do you speak a language other than Beninese at home?: No Does the patient want assistance with any of the above?: No PFSH All Active Problems (Updated 12/11/24 @ 18:56 by Rudolph Olvera MD) Acute anxiety (Acute) Acute asthma exacerbation (Acute) Acute respiratory failure with hypoxia (Acute) Acute asthma exacerbation (Acute) Seasonal allergies (Chronic) Obesity, morbid, BMI 40.0-49.9 (Chronic) Medical History Chronic hyperglycemia Chronic anxiety Nicotine abuse GERD (gastroesophageal reflux disease) Asthma Surgical History H/O section History of bilateral tubal ligation Family History Maternal Grandfather Hypertension Maternal Aunt Hypertension Maternal Uncle Diabetes Lung cancer Maternal Uncle Diabetes Maternal Grandmother Diabetes Mother Prediabetes Social History Smoking/Tobacco Use Status: Current every day Tobacco Type: e-cigarettes Smoking risk assessment performed?: Yes Alcohol Intake: current Alcohol Intake frequency: a few times a month Alcohol type: wine Drug use: Occasionally Substance use type: marijuana Details: patient eats the marijuana gummies Housing: apartment Do you feel safe at home: Yes Do you feel safe in your relationship?: Yes
[2024-12-12 09:11] LABS: D-Dimer 330 ng/mlFEU (<500)
--- NOTE | 2024-12-12 09:26 | W.PM.PROGNOT ---
Date of Service Date of service: 12/12/24 Time of Service: 09:26 Assessment and Plan Assessment and plan (1) Acute asthma exacerbation: Status: Acute Assessment and plan: - As noted in HPI, patient received IM Solu-Medrol, epinephrine, Versed and 2 DuoNeb treatments in the field -She was placed on CPAP via EMS and continued to require until she was ultimately transitioned to 5 L oxy mask in the emergency department -Given severity of exacerbation we will continue IV Solu-Medrol, 60 mg twice daily -Every 2 hours as needed albuterol, every 4 hours scheduled DuoNebs 12/12/24 Pt now on room air. Will downgrade to MS. Continue with current meds except will transition to oral steroids (2) Acute respiratory failure with hypoxia: Status: Acute Assessment and plan: - Secondary to acute exacerbation of asthma as noted above -Currently on 5 L oxy mask -Wean O2 as tolerated with goal oxygen saturation of greater than 92% 12/12/24 Much improved, safe for down grade (3) Chronic anxiety: Assessment and plan: - Patient has a known history of chronic anxiety -Understandably, anxiety is significantly heightened during periods of respiratory distress -Continue every 3 hour 1 mg IV Ativan for respiratory distress and anxiety 12/12/24 Much improved, cw meds prn (4) Seasonal allergies: Status: Chronic Assessment and plan: - Continue home loratadine (5) Obesity, morbid, BMI 40.0-49.9: Status: Chronic Assessment and plan: - Encourage ongoing weight loss discussion with PCP Subjective Subjective Interval history since last seen: Pt states that she is much improved in regards to her respiratory status. Pt is currently on room air Exam Narrative Exam Narrative: HEENT-NCAT MMM EOMI PERRLA NECK-NO LAD NO JVD NO THYROIDMEGALY CV-RRR NO MRG LUNGS-RIGHT SIDED EXPIRATORY WHEEZE. NO AMU SPEAKING IN COMPLETE SENTENCES ABD-[id number] EXT-NO CCE BILAT GEN-39 Y/O FEMALE WHO APPEARS HER STATED AGE Objective Last Vital Signs Temp 36.0 C L 12/11/24 20:15 Pulse 92 H 12/12/24 04:01 Resp 16 12/12/24 04:01 BP 114/73 12/12/24 04:01 Pulse Ox 94 12/12/24 04:01 Laboratory Results - last 24 hr 12/11/24 12/11/24 12/11/24 14:15 15:47 16:36 WBC 18.37 H RBC 5.02 Hgb 15.3 Hct 47.9 H MCV 95 MCH 30.5 MCHC 31.9 L RDW 13.4 Plt Count 390 MPV 7.8 L Immature Gran % 0.5 Neutrophils % 55.9 Lymphocytes % 35.9 Monocytes % 5.0 Eosinophils % 2.0 Basophils % 0.7 Nucleated RBC % 0.0 Absolute Neutrophils 10.27 H Absolute Lymphocytes 6.59 H Absolute Monocytes 0.92 H Absolute Eosinophils 0.37 Absolute Basophils 0.13 D-Dimer VBG pH 7.18 L* 7.24 L VBG pCO2 69 H* 67 H* VBG pO2 114 40 VBG HCO3 26 29 H VBG Total CO2 24 26 VBG O2 Saturation 98 66 VBG Base Excess -3 L 1 Sodium 143 Potassium 4.4 Chloride 108 H Carbon Dioxide 28.7 Anion Gap 6.3 BUN 18 Creatinine 1.0 Est GFR (CKD-EPI 2020) 73.49 Glucose 208 H Calcium 8.9 Magnesium 2.0 COVID-19 Source Nasopharynx SARS-CoV-2 (PCR) Negative Influenza Type A (PCR) Negative Influenza Type B (PCR) Negative RSV (PCR) Negative 12/11/24 12/12/24 18:00 08:29 WBC 15.69 H RBC 4.41 Hgb 13.6 Hct 41.0 MCV 93 MCH 30.8 MCHC 33.2 RDW 13.8 Plt Count 295 MPV 7.9 L Immature Gran % Neutrophils % Lymphocytes % Monocytes % Eosinophils % Basophils % Nucleated RBC % Absolute Neutrophils Absolute Lymphocytes Absolute Monocytes Absolute Eosinophils Absolute Basophils D-Dimer 330 VBG pH 7.28 L VBG pCO2 63 H* VBG pO2 33 VBG HCO3 30 H VBG Total CO2 27 VBG O2 Saturation 57 VBG Base Excess 3 Sodium 144 Potassium 4.5 Chloride 107 Carbon Dioxide 28.4 Anion Gap 8.6 BUN 17 Creatinine 0.9 Est GFR (CKD-EPI 2020) 83.40 Glucose 119 H Calcium 9.0 Magnesium COVID-19 Source SARS-CoV-2 (PCR) Influenza Type A (PCR) Influenza Type B (PCR) RSV (PCR) Time Spent with Patient Time Spent with Patient: 25-34 minutes Time was spent: preparing to see the patient(eg.review tests), obtaining and/or reviewing separately otained hiistory, ordering medications,tests, procedures, referring, communicating with other health manager managed care, indepentently interpreting results, counseling the patient and care coordination
[2024-12-12] MEDS: Normal Saline Flush 10 ML SYR IVP (09:30)
[2024-12-12] MEDS: methylPREDNISolone SUCC 125 MG VIAL 60 MG IVP (09:30)
[2024-12-12] MEDS: Enoxaparin 40 MG/0.4 ML SYR SC (09:30)
[2024-12-12] MEDS: Loratidine 10 MG TAB PO (09:31)
[2024-12-12] MEDS: Montelukast 10 MG TAB PO (09:31)
--- NOTE | 2024-12-12 09:33 | W.PM.PROGNOT ---
Date of Service Date of service: 12/12/24 Time of Service: 17:34 Objective Last Vital Signs Temp 36.0 C L 12/11/24 20:15 Pulse 92 H 12/12/24 04:01 Resp 16 12/12/24 04:01 BP 114/73 12/12/24 04:01 Pulse Ox 94 12/12/24 04:01 Laboratory Results - last 24 hr 12/11/24 12/11/24 12/11/24 14:15 15:47 16:36 WBC 18.37 H RBC 5.02 Hgb 15.3 Hct 47.9 H MCV 95 MCH 30.5 MCHC 31.9 L RDW 13.4 Plt Count 390 MPV 7.8 L Immature Gran % 0.5 Neutrophils % 55.9 Lymphocytes % 35.9 Monocytes % 5.0 Eosinophils % 2.0 Basophils % 0.7 Nucleated RBC % 0.0 Absolute Neutrophils 10.27 H Absolute Lymphocytes 6.59 H Absolute Monocytes 0.92 H Absolute Eosinophils 0.37 Absolute Basophils 0.13 D-Dimer VBG pH 7.18 L* 7.24 L VBG pCO2 69 H* 67 H* VBG pO2 114 40 VBG HCO3 26 29 H VBG Total CO2 24 26 VBG O2 Saturation 98 66 VBG Base Excess -3 L 1 Sodium 143 Potassium 4.4 Chloride 108 H Carbon Dioxide 28.7 Anion Gap 6.3 BUN 18 Creatinine 1.0 Est GFR (CKD-EPI 2020) 73.49 Glucose 208 H Calcium 8.9 Magnesium 2.0 COVID-19 Source Nasopharynx SARS-CoV-2 (PCR) Negative Influenza Type A (PCR) Negative Influenza Type B (PCR) Negative RSV (PCR) Negative 12/11/24 12/12/24 18:00 08:29 WBC 15.69 H RBC 4.41 Hgb 13.6 Hct 41.0 MCV 93 MCH 30.8 MCHC 33.2 RDW 13.8 Plt Count 295 MPV 7.9 L Immature Gran % Neutrophils % Lymphocytes % Monocytes % Eosinophils % Basophils % Nucleated RBC % Absolute Neutrophils Absolute Lymphocytes Absolute Monocytes Absolute Eosinophils Absolute Basophils D-Dimer 330 VBG pH 7.28 L VBG pCO2 63 H* VBG pO2 33 VBG HCO3 30 H VBG Total CO2 27 VBG O2 Saturation 57 VBG Base Excess 3 Sodium 144 Potassium 4.5 Chloride 107 Carbon Dioxide 28.4 Anion Gap 8.6 BUN 17 Creatinine 0.9 Est GFR (CKD-EPI 2020) 83.40 Glucose 119 H Calcium 9.0 Magnesium COVID-19 Source SARS-CoV-2 (PCR) Influenza Type A (PCR) Influenza Type B (PCR) RSV (PCR) Time Spent with Patient Time Spent with Patient: 25-34 minutes Time was spent: preparing to see the patient(eg.review tests), obtaining and/or reviewing separately otained hiistory, ordering medications,tests, procedures, referring, communicating with other health multi care technician, indepentently interpreting results, counseling the patient and care coordination
[2024-12-12] MEDS: Budesonide/Formoterol 80/4.5 6.9 GM 60 PUFF INH IH (11:29)
--- NOTE | 2024-12-12 11:47 | W.PC.ACHO ---
Registration Status: Primary Language: Preferred Language: ED Information & Data Chief Complaint SOB/SuddenOnset 12/11/24 14:42 Triage Note BIBA 3 duoneb x2 albuterol 12/11/24 14:04 125 solumedrol .3 epi 2.5 versed im, Cpap applied, diminished wheeze all stokes via EMS hx asthma Medical / Surgical History (Last Reviewed 12/11/24 @ 14:37 by Rudolph Olvera MD) Chronic hyperglycemia Chronic anxiety Nicotine abuse GERD (gastroesophageal reflux disease) Asthma (Last Reviewed 12/11/24 @ 14:37 by Rudolph Olvera MD) H/O section History of bilateral tubal ligation Most Recent Vital Signs Temperature 36.9 C 12/12/24 11:15 Temperature Source Temporal Artery Scan 12/12/24 11:15 Pulse 98 H 12/12/24 11:17 Pulse 89 12/12/24 10:00 Respiratory Rate 19 12/12/24 10:12 Respiratory Effort Normal 12/11/24 20:15 Respiratory Depth Normal 12/11/24 20:15 Respiratory Pattern Normal 12/11/24 20:15 Blood Pressure 118/73 12/12/24 11:17 Blood Pressure Mean 87 12/12/24 11:17 Pulse Oximetry 93 12/12/24 10:12 Oxygen Delivery Method Room Air 12/12/24 10:12 Oxygen Flow Rate 0 12/12/24 10:12 Fraction of Inspired Oxygen (FIO2) 35 12/11/24 15:21 Pain Level 0 12/11/24 20:15 Allergies Penicillins Allergy (Mild, Verified 11/20/24 13:20) Skin Rash bee pollen Adverse Reaction (Severe, Verified 11/20/24 13:20) Anaphylaxsis pet dender Allergy (Mild, Uncoded 11/20/24 13:20) Itching mold Adverse Reaction (Severe, Uncoded 11/20/24 13:20) Anaphylaxsis Precautions Isolation Standard precaution 12/11/24 14:35 Active Medications Generic Name Dose Route Start Last Admin Trade Name Freq PRN Reason Stop Dose Admin Albuterol/Ipratropium 3 ml 12/11/24 22:00 12/12/24 10:12 Albuterol/Ipratropium 3 Ml Upd Vial UPD 3 ml Q4H YNES Administration Budesonide/Formoterol Fumarate 2 puff 12/12/24 12:00 12/12/24 11:29 Budesonide/Formoterol 80/4.5 6.9 Gm 60 Puff Inh IH 2 puff DAILY YNES Administration Albuterol Sulfate 10 mg/ 0 mg 12/11/24 16:30 12/11/24 16:27 Sodium Chloride 9 ml UPD 10 mg DIRECTED YNES Administration Enoxaparin Sodium 40 mg 12/12/24 08:30 12/12/24 09:30 Enoxaparin 40 Mg/0.4 Ml Syr SC 40 mg DAILY YNES Administration Loratadine 10 mg 12/12/24 08:30 12/12/24 09:31 Loratidine 10 Mg Tab PO 10 mg DAILY YNES Administration Montelukast Sodium 10 mg 12/12/24 08:30 12/12/24 09:31 Montelukast 10 Mg Tab PO 10 mg DAILY YNES Administration Sodium Chloride 0 ml 12/11/24 20:00 12/12/24 09:30 Normal Saline Flush 10 Ml Syr IVP 10 ml BID YNES Administration IV IV Catheter Type [Left Saline Lock Antecubital] IV Catheter Type [Right Saline Lock Antecubital] IV Catheter Gauge [Left 20 Antecubital] IV Catheter Gauge [Right 18 Antecubital] Diet Orders Category Date Time Status DIET [Regular/Normal] [DIET] Nutrition 12/12/24 Lunch Active Diagnostics 12/12/24 12/11/24 12/11/24 Range/Units 08:29 18:00 16:36 WBC 15.69 H (4.4-10.8) 10^3/uL RBC 4.41 (3.93-5.22) 10^6/uL Hgb 13.6 (11.2-15.7) g/dL Hct 41.0 (36.0-46.0) % MCV 93 (80-95) fL MCH 30.8 (27.0-33.0) pg MCHC 33.2 (32.0-36.0) % RDW 13.8 (11.7-14.6) % Plt Count 295 (130-400) 10^3/uL MPV 7.9 L (8.0-11.0) fL Immature Gran % % Neutrophils % % Lymphocytes % % Monocytes % % Eosinophils % % Basophils % % Nucleated RBC % (0.0-0.3) % Absolute Neutrophils (1.2-6.7) 10^3/uL Absolute Lymphocytes (1.2-3.4) 10^3/uL Absolute Monocytes (0.1-0.8) 10^3/uL Absolute Eosinophils (0.0-0.7) 10^3/uL Absolute Basophils (0.0-0.2) 10^3/uL D-Dimer 330 (<500) ng/mlFEU VBG pH 7.28 L (7.31-7.41) VBG pCO2 63 H* (41-51) mmHg VBG pO2 33 mmHg VBG HCO3 30 H (23-28) mmol/L VBG Total CO2 27 (24-29) mmol/L VBG O2 Saturation 57 % VBG Base Excess 3 (-2-3) mmol/L Sodium 144 (136-145) mmol/L Potassium 4.5 (3.5-5.1) mmol/L Chloride 107 (98-107) mmol/L Carbon Dioxide 28.4 (21.0-32.0) mmol/L Anion Gap 8.6 (3-11) mmol/L BUN 17 (7-18) mg/dL Creatinine 0.9 (0.55-1.02) mg/dL Est GFR (CKD-EPI 2020) 83.40 (mL/min/1.73m2) Glucose 119 H (74-106) mg/dL Calcium 9.0 (8.5-10.1) mg/dL Magnesium (1.8-2.4) mg/dL COVID-19 Source Nasopharynx SARS-CoV-2 (PCR) Negative (Negative) Influenza Type A (PCR) Negative (Negative) Influenza Type B (PCR) Negative (Negative) RSV (PCR) Negative (Negative) 12/11/24 12/11/24 Range/Units 15:47 14:15 WBC 18.37 H (4.4-10.8) 10^3/uL RBC 5.02 (3.93-5.22) 10^6/uL Hgb 15.3 (11.2-15.7) g/dL Hct 47.9 H (36.0-46.0) % MCV 95 (80-95) fL MCH 30.5 (27.0-33.0) pg MCHC 31.9 L (32.0-36.0) % RDW 13.4 (11.7-14.6) % Plt Count 390 (130-400) 10^3/uL MPV 7.8 L (8.0-11.0) fL Immature Gran % 0.5 % Neutrophils % 55.9 % Lymphocytes % 35.9 % Monocytes % 5.0 % Eosinophils % 2.0 % Basophils % 0.7 % Nucleated RBC % 0.0 (0.0-0.3) % Absolute Neutrophils 10.27 H (1.2-6.7) 10^3/uL Absolute Lymphocytes 6.59 H (1.2-3.4) 10^3/uL Absolute Monocytes 0.92 H (0.1-0.8) 10^3/uL Absolute Eosinophils 0.37 (0.0-0.7) 10^3/uL Absolute Basophils 0.13 (0.0-0.2) 10^3/uL D-Dimer (<500) ng/mlFEU VBG pH 7.24 L 7.18 L* (7.31-7.41) VBG pCO2 67 H* 69 H* (41-51) mmHg VBG pO2 40 114 mmHg VBG HCO3 29 H 26 (23-28) mmol/L VBG Total CO2 26 24 (24-29) mmol/L VBG O2 Saturation 66 98 % VBG Base Excess 1 -3 L (-2-3) mmol/L Sodium 143 (136-145) mmol/L Potassium 4.4 (3.5-5.1) mmol/L Chloride 108 H (98-107) mmol/L Carbon Dioxide 28.7 (21.0-32.0) mmol/L Anion Gap 6.3 (3-11) mmol/L BUN 18 (7-18) mg/dL Creatinine 1.0 (0.55-1.02) mg/dL Est GFR (CKD-EPI 2020) 73.49 (mL/min/1.73m2) Glucose 208 H (74-106) mg/dL Calcium 8.9 (8.5-10.1) mg/dL Magnesium 2.0 (1.8-2.4) mg/dL COVID-19 Source SARS-CoV-2 (PCR) (Negative) Influenza Type A (PCR) (Negative) Influenza Type B (PCR) (Negative) RSV (PCR) (Negative) Intake and Output - 24 Hour Total 12/11/24 14:01 thru 12/12/24 11:15 Intake Total 1495 Output Total 450 Balance 1045 Weight 101.7 kg Intake: IV 1070 Oral 425 Output: Urine 450 Other: Urine Color Pale Yellow Urine Appearance Clear Urine Odor Strong Comment Patient urinated an unmeasured amount into bedside commode. Falls Risk Assessment History of Falls No History 12/11/24 20:15 Contributing Factors Unstable,Impairments 12/11/24 20:15 Ambulatory Aids Independent 12/11/24 20:15 Tubes/Lines W/no contributing factors 12/11/24 20:15 Gait Evaluation W/no contributing factors 12/11/24 20:15 Cognition No cognitive impairment 12/11/24 20:15 Fall Total Score 26 12/11/24 20:15 Level of Risk Moderate Risk 12/11/24 20:15 Problems (Last Reviewed 12/11/24 @ 14:37 by Rudolph Olvera MD) Acute anxiety (Acute) Acute asthma exacerbation (Acute) Acute respiratory failure with hypoxia (Acute) Acute asthma exacerbation (Acute) Seasonal allergies (Chronic) Obesity, morbid, BMI 40.0-49.9 (Chronic) v v v v v v v v v Sending and/or Receiving Nurses: Please use comment section below to note any information pertinent to the patient hand-off not included above. Information / Comments: Report received from: Orquidea CABRERA
--- NOTE | 2024-12-12 12:09 | NUR.NOTE ---
report received from Orquidea CABRERA. Patient transferred to unit via wheelchair, AxOx4, denies pain at this time, lung sounds with mild exp wheezes in upper/mid lobes. Nebs Q4, patient noted with leukocytosis and continues to have tachycardia >90 bpm and softer BPs, MD Titus noted but not concerned due to her current steroid use. Patient is resting in bed waiting for lunch, all systems intact, sats stable on room air. Repeat VBG ordered per RT request since last was acidotic. Nursing Note:
[2024-12-12 12:20] LABS: BE (Venous) 2 mmol/L (-2-3); HCO3 (Venous) 27 mmol/L (23-28); O2 Sat (Venous) 92 %; TCO2 (Venous) 24 mmol/L (24-29); pCO2 (Venous) 40 mmHg (41-51); pH (Venous) 7.44 (7.31-7.41); pO2 (Venous) 58 mmHg
--- NOTE | 2024-12-12 13:18 | W.PM.DS.N ---
Date of service: 12/12/24 Time of Service: 13:19 DS: Diagnosis Discharge Diagnosis (1) Acute asthma exacerbation: Status: Acute (2) Acute respiratory failure with hypoxia: Status: Acute (3) Chronic anxiety: (4) Seasonal allergies: Status: Chronic (5) Obesity, morbid, BMI 40.0-49.9: Status: Chronic Discharge Plan Disposition Patient Disposition: Home Condition: Stable Discharge Details Reason For Visit: Acute exacerbation of athsma Admit Date/Time: 12/11/24 18:50 Admit Provider: Joe Simms Attending Provider: Joe Simms [facility]: Pt was initially admitted to the ICU put improved rapidly throughout the night. On the , she asked to be discharged home and I agreed as her respiratory status had improved to baseline. I will send a prescription for prednisone 20mg po bid for five days. istory of Present Illness Chief Complaint: Shortness of breath Narrative: 39-year-old female with significant past medical history of asthma with seasonal allergies and significant anxiety presents to the emergency department via ambulance for shortness of breath. Patient states that earlier in the morning she began to have sudden worsening of shortness of breath and went through an entire inhaler throughout the day without any improvement prompting her to call EMS. She denied any fever, headache, lightheadedness, dizziness, nausea vomiting or diarrhea. Upon EMSs arrival the patient was placed on CPAP, she received IM Solu-Medrol, IM epinephrine, IM Versed and 2 DuoNeb treatments. Upon arrival to the emergency department she was tachycardic, tachypneic, diaphoretic was mentating normally but was experiencing significant anxiety. She continued to require CPAP but was saturating at 94% with 6 L through the CPAP. CBC showed white count of 18 likely secondary to demargination and steroid use, CMP was unremarkable and VBG initially showed a pH of 7.18 with a CO2 of 69. Patient received additional doses of IV Ativan as well as nebulizer treatments and ultimately was able to be placed on a 5 L oxy mask with improvement in her anxiety, respiratory distress and her ABG with subsequent pH being 7.28 and CO2 down to 63. At which time emergency room physician paged hospitalist for admission for patient with acute exacerbation of asthma, acute hypoxic respiratory failure, and significant anxiety. 1) Acute asthma exacerbation: Status: Acute Assessment and plan: - As noted in HPI, patient received IM Solu-Medrol, epinephrine, Versed and 2 DuoNeb treatments in the field -She was placed on CPAP via EMS and continued to require until she was ultimately transitioned to 5 L oxy mask in the emergency department -Given severity of exacerbation we will continue IV Solu-Medrol, 60 mg twice daily -Every 2 hours as needed albuterol, every 4 hours scheduled DuoNebs (2) Acute respiratory failure with hypoxia: Status: Acute Assessment and plan: - Secondary to acute exacerbation of asthma as noted above -Currently on 5 L oxy mask -Wean O2 as tolerated with goal oxygen saturation of greater than 92% (3) Chronic anxiety: Assessment and plan: - Patient has a known history of chronic anxiety -Understandably, anxiety is significantly heightened during periods of respiratory distress -Continue every 3 hour 1 mg IV Ativan for respiratory distress and anxiety (4) Seasonal allergies: Status: Chronic Assessment and plan: - Continue home loratadine (5) Obesity, morbid, BMI 40.0-49.9: Status: Chronic Assessment and plan: - Encourage ongoing weight loss discussion with PCP Home Meds and New Rx's Prescriptions: New prednisone 20 mg Tablet 20 mg PO BID 7 Days Qty: 14 0RF Continued montelukast [Singulair] 10 MG tablet 10 mg PO DAILY loratadine 10 mg Tablet 10 mg PO DAILY Qty: 90 1RF buspirone 10 mg tablet 10 mg PO DAILY Patient Comments: TAKE 1 TABLET BY MOUTH TWICE DAILY FOR 14 DAYS ipratropium-albuterol 0.5 mg-3 mg(2.5 mg base)/3 mL Solution For Nebulization 3 ml UPD Q6H Qty: 180 0RF lorazepam 0.5 mg tablet 0.25 mg PO TID PRNQty: 8 0RF Rx Instructions: Short course of Lorazepam ordered 3 times per day as needed- further antianxiety regimen to be decided with PCP during follow-up appointment on 08/10/2024 albuterol sulfate 2.5 mg /3 mL (0.083 %) solution for nebulization 1.25 mg IH Q4H PRN (Reason: shortness of breath or wheezing) Qty: 75 2RF albuterol sulfate [ProAir HFA] 200 PUFF HFA aerosol inhaler 2 puff Inhalation Q2H PRN PRNQty: 8.5 0RF budesonide-formoterol 80-4.5 mcg/actuation HFA aerosol inhaler 2 inh inhalation DAILY Discontinued prednisone 10 mg tablet PO PRN (Reason: For Asthma Flare-Ups) Discharge Instructions Activity:: Activity as Tolerated Equipment/Supplies:: No Equipment Needed Diet:: As Tolerated Discharge Orders Discharge Orders: Discharge Order (Routine); Ordered 12/12/24 Ordered By: Rudolph Titus DS: Summary Time Spent with Patient providing and/or coordinating discharge services: Greater than 30 minutes Status at Discharge Functional status at discharge: independent ambulation Overall status at discharge: patient is back to baseline Mental Status: mental status grossly normal Speech and Movement: speech and movement normal Mood: congruent mood Affect: normal affect Quality:SDOH Health Related Social Needs: No Data to Display Exam Narrative Exam Narrative: HEENT-NCAT MMM EOMI PERRLA NECK-NO LAD NO JVD NO THYROIDMEGALY CV-RRR NO MRG LUNGS-RIGHT SIDED EXPIRATORY WHEEZE. NO AMU SPEAKING IN COMPLETE SENTENCES ABD-[id number] EXT-NO CCE BILAT GEN-39 Y/O FEMALE WHO APPEARS HER STATED AGE Psych Mental Status: mental status grossly normal Speech and Movement: speech and movement normal Mood: congruent mood Affect: normal affect DS: Data Vitals/I&O Vitals and I&O: Vital Signs Temperature 36.7 C 12/12/24 11:48 Temperature Source Temporal Artery Scan 12/12/24 11:48 Pulse 119 H 12/12/24 11:48 Pulse 89 12/12/24 10:00 Respiratory Rate 20 12/12/24 11:48 Respiratory Effort Normal 12/11/24 20:15 Respiratory Depth Normal 12/11/24 20:15 Respiratory Pattern Normal 12/11/24 20:15 Blood Pressure 100/57 L 12/12/24 11:48 Blood Pressure Mean 87 12/12/24 11:17 Pulse Oximetry 95 12/12/24 11:48 Oxygen Delivery Method Room Air 12/12/24 11:48 Oxygen Flow Rate 0 12/12/24 11:48 Fraction of Inspired Oxygen (FIO2) 35 12/11/24 15:21 Pain Level 0 12/11/24 20:15 Intake & Output 12/11/24 12/12/24 12/12/24 23:59 11:59 23:59 Intake Total 1070 / 1070 425 / 545 120 / 545 Output Total 450 / 450 Balance 1070 / 1070 - 120 / 95 Weight 101.7 kg Intake: IV 1070 / 1070 Oral 425 / 545 120 / 545 Output: Urine 450 / 450 Other: Urine Color Pale Yellow Urine Appearance Clear Urine Odor Strong Comment Patient urinated an unmeasured amount into bedside commode. Data Completed and Pending Labs on day of discharge: Labs from last 24 hours 12/12/24 12/12/24 12/11/24 12:15 08:29 18:00 WBC 15.69 H RBC 4.41 Hgb 13.6 Hct 41.0 MCV 93 MCH 30.8 MCHC 33.2 RDW 13.8 Plt Count 295 MPV 7.9 L Immature Gran % Neutrophils % Lymphocytes % Monocytes % Eosinophils % Basophils % Nucleated RBC % Absolute Neutrophils Absolute Lymphocytes Absolute Monocytes Absolute Eosinophils Absolute Basophils D-Dimer 330 VBG pH 7.44 H 7.28 L VBG pCO2 40 L 63 H* VBG pO2 58 33 VBG HCO3 27 30 H VBG Total CO2 24 27 VBG O2 Saturation 92 57 VBG Base Excess 2 3 Sodium 144 Potassium 4.5 Chloride 107 Carbon Dioxide 28.4 Anion Gap 8.6 BUN 17 Creatinine 0.9 Est GFR (CKD-EPI 2020) 83.40 Glucose 119 H Calcium 9.0 Magnesium COVID-19 Source SARS-CoV-2 (PCR) Influenza Type A (PCR) Influenza Type B (PCR) RSV (PCR) 12/11/24 12/11/24 12/11/24 16:36 15:47 14:15 WBC 18.37 H RBC 5.02 Hgb 15.3 Hct 47.9 H MCV 95 MCH 30.5 MCHC 31.9 L RDW 13.4 Plt Count 390 MPV 7.8 L Immature Gran % 0.5 Neutrophils % 55.9 Lymphocytes % 35.9 Monocytes % 5.0 Eosinophils % 2.0 Basophils % 0.7 Nucleated RBC % 0.0 Absolute Neutrophils 10.27 H Absolute Lymphocytes 6.59 H Absolute Monocytes 0.92 H Absolute Eosinophils 0.37 Absolute Basophils 0.13 D-Dimer VBG pH 7.24 L 7.18 L* VBG pCO2 67 H* 69 H* VBG pO2 40 114 VBG HCO3 29 H 26 VBG Total CO2 26 24 VBG O2 Saturation 66 98 VBG Base Excess 1 -3 L Sodium 143 Potassium 4.4 Chloride 108 H Carbon Dioxide 28.7 Anion Gap 6.3 BUN 18 Creatinine 1.0 Est GFR (CKD-EPI 2020) 73.49 Glucose 208 H Calcium 8.9 Magnesium 2.0 COVID-19 Source Nasopharynx SARS-CoV-2 (PCR) Negative Influenza Type A (PCR) Negative Influenza Type B (PCR) Negative RSV (PCR) Negative PFSH All Active Problems (Updated 12/11/24 @ 18:56 by Rudolph Olvera MD) Acute anxiety (Acute) Acute asthma exacerbation (Acute) Acute respiratory failure with hypoxia (Acute) Acute asthma exacerbation (Acute) Seasonal allergies (Chronic) Obesity, morbid, BMI 40.0-49.9 (Chronic) Medical History Chronic hyperglycemia Chronic anxiety Nicotine abuse GERD (gastroesophageal reflux disease) Asthma Surgical History H/O section History of bilateral tubal ligation Family History Maternal Grandfather Hypertension Maternal Aunt Hypertension Maternal Uncle Diabetes Lung cancer Maternal Uncle Diabetes Maternal Grandmother Diabetes Mother Prediabetes Social History Smoking/Tobacco Use Status: Current every day Tobacco Type: e-cigarettes Smoking risk assessment performed?: Yes Alcohol Intake: current Alcohol Intake frequency: a few times a month Alcohol type: wine Drug use: Occasionally Substance use type: marijuana Details: patient eats the marijuana gummies Housing: apartment Do you feel safe at home: Yes Do you feel safe in your relationship?: Yes Time Spent with Patient Time Spent with Patient: <45 minutes Time was spent: preparing to see the patient(eg.review tests), obtaining and/or reviewing separately otained hiistory, ordering medications,tests, procedures, referring, communicating with other health healthcare administration internship, indepentently interpreting results, counseling the patient and care coordination
--- NOTE | 2024-12-12 13:54 | NUR.NOTE ---
pt with discharge order, O2 sats stable on room air, MD Titus aware of tachycardia but not concerned with hx of anxiety and being on steroids. Patient comfortable going home, PIVs removed, given all d/c instructions including f/u with PCP, medications at pharmacy and medication schedule. Patient packing up all belongings, given work note by Job Training Specialist, ambulating to POV with family. Nursing Note:
--- NOTE | 2024-12-12 14:07 | CMDISCH_ITS ---
Date of service: 12/12/24 Time of Service: 14:07 LACE Index Scoring Tool Questions: Length of Stay (in days): 1 Was the patient admitted via the E.D.?: Yes E.D. Visits: 5 Answers: Total Score: 8 Risk of Readmission: Low Risk Care Management Discharge Plan Reason for Hospitalization: acute exacerbation of asthma Discharge Plan: Ryann returned home today with no new services. CM sent a referral to [employer] for insurance support. She will be driven home via private vehicle. She will follow up with her PCP and discharge plan of care. She is happy to be going home. Patient/Family Education Needs: Review discharge instructions and limitations, discussion of self care needs including ask me three. SDOH Health Related Social Needs: No Data to Display
[2024-12-12] MEDS: Levalbuterol 1.25 MG/3 ML UPD VIAL UPD (14:09)
== END 2024-12-12 14:21 | disposition home or self-care (01) | DRG 202 ==
LOC: ER 18:56 → ICU 20:07 → MS 12-12 11:43
PROVIDERS: Admitting Provider Family Medicine; Emergency Provider Emergency Medicine; PCP Family Medicine; Responsible Provider Hospitalist; Visit Provider Family Medicine
DX: J45.901 Unspecified asthma with (acute) exacerbation (principal); J96.01 Acute respiratory failure with hypoxia; F41.9 Anxiety disorder, unspecified; F17.290 Nicotine dependence, other tobacco product, uncomplicated; E66.01 Morbid (severe) obesity due to excess calories; R73.9 Hyperglycemia, unspecified; K21.9 Gastro-esophageal reflux disease without esophagitis; Z68.38 Body mass index [BMI] 38.0-38.9, adult; Z79.899 Other long term (current) drug therapy
CPT/HCPCS: 00123; 36415; 80048; 82805; 85027; 87637; 93005; 94640; 94644; 96365; 96366; 96375; 96376; 99291; J1650; 71045; 83735; 85025; 85379; 93010; 94664; 99233; 99239; J2060; J2919; J3475; J7613; J7614; J7620

== ENCOUNTER 2025-01-14 16:18 | Observation (INO) | payer SELFPAY ==
[2025-01-14] VITALS (48 sets, daily range): BP systolic 116–173; BP diastolic 68–120; PULSE 86–128; RESP 5–35; O2SAT 91–99
--- NOTE | 2025-01-14 16:32 | ED.GENADUL_ITS ---
Discharge Plan Discharge Details Chief Complaint: SOB/SuddenOnset Primary Care Provider: Reese Barrera ED Provider: Dayanna Yeh Home Meds and New Rx's Prescriptions: No Action montelukast [Singulair] 10 MG tablet 10 mg PO DAILY loratadine 10 mg Tablet 10 mg PO DAILY Qty: 90 1RF buspirone 10 mg tablet 10 mg PO DAILY Patient Comments: TAKE 1 TABLET BY MOUTH TWICE DAILY FOR 14 DAYS ipratropium-albuterol 0.5 mg-3 mg(2.5 mg base)/3 mL Solution For Nebulization 3 ml UPD Q6H Qty: 180 0RF lorazepam 0.5 mg tablet 0.25 mg PO TID PRNQty: 8 0RF Rx Instructions: Short course of Lorazepam ordered 3 times per day as needed- further antianxiety regimen to be decided with PCP during follow-up appointment on 08/10/2024 albuterol sulfate 2.5 mg /3 mL (0.083 %) solution for nebulization 1.25 mg IH Q4H PRN (Reason: shortness of breath or wheezing) Qty: 75 2RF albuterol sulfate [ProAir HFA] 200 PUFF HFA aerosol inhaler 2 puff Inhalation Q2H PRN PRNQty: 8.5 0RF budesonide-formoterol 80-4.5 mcg/actuation HFA aerosol inhaler 2 inh inhalation DAILY ProAir RespiClick 90 mcg/actuation aerosol powdr breath activated 2 inh inhalation Q4H PRNQty: 1 0RF HPI General Date/Time Provider Initiated Documentation: 01/14/25 16:32 . HPI Narrative: Ryann is a 39 year old female who presents to the emergency department today for evaluation of asthma exacerbation. She reports that her son has been sick with a cough, she started with coughing up this morning and wheezing. She has taken her albuterol inhaler and albuterol nebulizer 3 times this afternoon; as well as 30 mg prednisone prior to her arrival to the ED. Denies fever/chills, congestion, sore throat, chest pain, facial swelling, intraoral swelling, difficulty swallowing, nausea/vomiting, abdominal pain, change in bowel or bladder function, extremity weakness. Has had tingling in her fingers all day today. She does admit to significant anxiety, says that her asthma triggers this; not currently on any anxiolytics. Has not been intubated due to asthma, however has been close. Past medical history is significant for asthma, anxiety, obesity. Physical exam remarkable for anxious patient with significant tachypnea and retractions, loud wheezes in all lung stokes. She does have flushing down to her chest. Patient is alert and oriented, able to answer questions appropriately. No facial swelling, hoarse voice, or trismus. Tachycardia noted. Abdomen soft, nondistended, nontender to palpation. Moving all extremities equally. No pedal edema or obvious JVD. Presentation consistent with asthma exacerbation; triggers include viral or allergic etiology. I independently interpreted the following tests: CBC notable for leukocytosis, white cell count 13.73. VBG, CMP, magnesium reassuring. COVID/flu/RSV negative. No obvious infiltrate noted on chest x-ray, this was confirmed by radiologist. While in the emergency department, Ryann received Solu-Medrol 125 mg, DuoNebs x 3, magnesium sulfate IV. 0.5 mg IV Ativan given for anxiety. She did have significant improvement in work of breathing and anxiety after medications. End expiratory wheezes noted in all stokes. After an observation period, Ryann developed new shortness of breath and wheezing. A 10 mg albuterol nebulizer treatment was initiated; as patient remains severely symptomatic despite optimal management, will admit overnight for management of severe asthma exacerbation. Discussed case with Dr. Rosario, who is agreeable with plan of care. Related Data Home Medications ?Medication ?Instructions ?Recorded ?Confirmed montelukast 10 mg tablet 10 mg PO DAILY 07/30/16 12/11/24 (Singulair) loratadine 10 mg tablet 10 mg PO DAILY #90 tabs 10/03/19 12/11/24 albuterol sulfate 90 mcg/actuation 2 puff inhalation Q2H PRN PRN #8.5 08/02/23 12/11/24 aerosol inhaler (ProAir HFA) grams buspirone 10 mg tablet 10 mg PO DAILY 07/20/24 12/12/24 albuterol sulfate 2.5 mg/3 mL 1.25 mg (1.5 mL) inhalation Q4H 08/05/24 12/11/24 (0.083 %) solution for nebulization PRN shortness of breath or wheezing #75 mL ipratropium 0.5 mg-albuterol 3 mg 3 ml UPD Q6H #180 mL 08/05/24 12/11/24 (2.5 mg base)/3 mL nebulization soln lorazepam 0.5 mg tablet 0.25 mg (1/2 x 0.5 mg) PO TID PRN 08/05/24 12/11/24 #8 tabs albuterol sulfate 90 mcg/actuation 2 inh inhalation Q4H PRN #1 ea 12/12/24 breath activated powder inhaler (ProAir RespiClick) budesonide-formoterol HFA 80 2 inh inhalation DAILY 12/12/24 12/12/24 mcg-4.5 mcg/actuation aerosol inhaler Previous Rx's ?Medication ?Instructions ?Recorded loratadine 10 mg tablet 10 mg PO DAILY #90 tabs 10/03/19 albuterol sulfate 90 mcg/actuation 2 puff inhalation Q2H PRN PRN #8.5 08/02/23 aerosol inhaler (ProAir HFA) grams albuterol sulfate 2.5 mg/3 mL 1.25 mg (1.5 mL) inhalation Q4H 08/05/24 (0.083 %) solution for nebulization PRN shortness of breath or wheezing #75 mL ipratropium 0.5 mg-albuterol 3 mg 3 ml UPD Q6H #180 mL 08/05/24 (2.5 mg base)/3 mL nebulization soln lorazepam 0.5 mg tablet 0.25 mg (1/2 x 0.5 mg) PO TID PRN 08/05/24 #8 tabs albuterol sulfate 90 mcg/actuation 2 inh inhalation Q4H PRN #1 ea 12/12/24 breath activated powder inhaler (ProAir RespiClick) Allergies Allergy/AdvReac Type Severity Reaction Status Date / Time Penicillins Allergy Mild Skin Rash Verified 11/20/24 13:20 bee pollen AdvReac Severe Anaphylaxsi Verified 11/20/24 13:20 s pet dender Allergy Mild Itching Uncoded 11/20/24 13:20 mold AdvReac Severe Anaphylaxsi Uncoded 11/20/24 13:20 s General Stated Complaint: SOB/SuddenOnset DAYO: 3 Review of Systems Narrative: See HPI Exam Const General: cooperative, well developed, in distress respiratory and anxious Nutritional Appearance: obese Orientation: alert and oriented x3 Resp Effort & Inspection: tachypneic, tripod positioning and uses accessory muscles Auscultation: wheezes (I+E in all lung stokes) Cardio Rate: tachycardic Rhythm: regular rhythm Pulses: radial pulses present GI Inspection: normal to inspection and non-distended Palpation: soft, not firm, no guarding, not rigid and nontender Skin General skin exam: no rashes or lesions noted Extrem General: normal to inspection, capillary refill normal, no pedal edema and normal gait Course Vital Signs Vital signs: Vital Signs Pulse 120 H 01/14/25 16:21 Respiratory Rate 30 H 01/14/25 16:21 Blood Pressure 173/120 H 01/14/25 16:21 Pulse Oximetry 94 01/14/25 16:21 Pulse 120 H 01/14/25 16:21 Respiratory Rate 30 H 01/14/25 16:21 Blood Pressure 173/120 H 01/14/25 16:21 Blood Pressure Position Sitting 01/14/25 16:21 Pulse Oximetry 94 01/14/25 16:21 Oxygen Delivery Method Room Air 01/14/25 16:21 Oxygen Flow Rate 0 01/14/25 16:21 Medical Decision Making Imaging Data Radiologic Study: Radiologist's impression: Exam(s) XR CHEST 2V PA LATERAL EXAM: XR CHEST 2V PA LATERAL CLINICAL HISTORY: cough, sob. TECHNIQUE: 2D digital imaging was performed. COMPARISON: CR XR PORTABLE CHEST AP from 12/11/2024 FINDINGS: 2 views: Heart size is normal. The mediastinum is not widened. Lungs are clear. No infiltrates nor pleural effusions. NO FRACTURES. NO PNEUMOTHORAX. IMPRESSION: No acute pulmonary findings. Quality:SDOH Health Related Social Needs: No Data to Display PFSH All Active Problems (Updated 12/21/24 @ 00:03 by ASTRID FERGUSON) Acute anxiety (Acute) Seasonal allergies (Chronic) Obesity, morbid, BMI 40.0-49.9 (Chronic) Medical History Chronic hyperglycemia Chronic anxiety Nicotine abuse GERD (gastroesophageal reflux disease) Asthma Surgical History H/O section History of bilateral tubal ligation Family History Maternal Grandfather Hypertension Maternal Aunt Hypertension Maternal Uncle Diabetes Lung cancer Maternal Uncle Diabetes Maternal Grandmother Diabetes Mother Prediabetes Social History Smoking/Tobacco Use Status: Current every day Tobacco Type: e-cigarettes Smoking risk assessment performed?: Yes Alcohol Intake: current Alcohol Intake frequency: a few times a month Alcohol type: wine Drug use: Occasionally Substance use type: marijuana Details: patient eats the marijuana gummies Housing: apartment Do you feel safe at home: Yes Do you feel safe in your relationship?: Yes
[2025-01-14] MEDS: Albuterol/Ipratropium 3 ML UPD VIAL (16:36)
[2025-01-14] MEDS: methylPREDNISolone SUCC 125 MG VIAL (16:38)
[2025-01-14] MEDS: LORazepam 2 MG/ML VIAL (16:38)
[2025-01-14] MEDS: MAGNESIUM SULFATE 2 GM/50 ML BAG 50 GM (16:39)
--- NOTE | 2025-01-14 17:00 | DI.RAD_ITS ---
Exam(s) XR CHEST 2V PA LATERAL EXAM: XR CHEST 2V PA LATERAL CLINICAL HISTORY: cough, sob. TECHNIQUE: 2D digital imaging was performed. COMPARISON: CR XR PORTABLE CHEST AP from 12/11/2024 FINDINGS: 2 views: Heart size is normal. The mediastinum is not widened. Lungs are clear. No infiltrates nor pleural effusions. NO FRACTURES. NO PNEUMOTHORAX. IMPRESSION: No acute pulmonary findings. DATA REPOSITORY: RADIATION DOSE DELIVERED:
[2025-01-14 17:12] LABS: Abs Immature Grans 0.06 10^3/uL (0.0-0.06); Absolute Basophil Count 0.11 10^3/uL (0.0-0.2); Absolute Lymphocyte Count 3.53 10^3/uL (1.2-3.4); Absolute Neutrophil Count 9.03 10^3/uL (1.2-6.7); Basophils % 0.8 %; Eosinophils % 2.2 %; HCT 41.7 % (36.0-46.0); HGB 13.6 g/dL (11.2-15.7); Immature Grans % 0.4 %; Lymphocytes % 25.7 %; MCH 30.8 pg (27.0-33.0); MCHC 32.6 % (32.0-36.0); MCV 94 fL (80-95); MPV 8.2 fL (8.0-11.0); Monocytes % 5.1 %; Neutrophils % 65.8 %; Platelet Count 335 10^3/uL (130-400); RBC 4.42 10^6/uL (3.93-5.22); RDW 13.1 % (11.7-14.6); RDW-SD 44.8 fL; WBC 13.73 10^3/uL (4.4-10.8)
[2025-01-14 17:25] LABS: COVID-19 PCR Negative (Negative); Influenza A PCR Negative (Negative); Influenza B PCR Negative (Negative); RSV PCR Negative (Negative)
[2025-01-14 17:26] LABS: Source Nasopharynx
[2025-01-14 17:31] LABS: ALT 20 U/L (14-59); AST 7 U/L (15-37); Albumin 3.3 g/dL (3.4-5.0); Alkaline Phosphatase 81 U/L (46-116); Anion Gap 6.1 mmol/L (3-11); BUN 11 mg/dL (7-18); Bilirubin, Total 0.4 mg/dL (0.2-1.0); CO2 29.9 mmol/L (21.0-32.0); CREATININE 0.9 mg/dL (0.55-1.02); Calcium 8.9 mg/dL (8.5-10.1); Chloride 108 mmol/L (98-107); Glucose 104 mg/dL (74-106); Magnesium 1.9 mg/dL (1.8-2.4); Potassium 3.5 mmol/L (3.5-5.1); Sodium 144 mmol/L (136-145); Total Protein 6.8 g/dL (6.4-8.2)
[2025-01-14 17:35] LABS: BE (Venous) 4 mmol/L (-2-3); HCO3 (Venous) 29 mmol/L (23-28); O2 Sat (Venous) 85 %; TCO2 (Venous) 27 mmol/L (24-29); pCO2 (Venous) 50 mmHg (41-51); pH (Venous) 7.37 (7.31-7.41); pO2 (Venous) 48 mmHg
[2025-01-14] MEDS: Normal Saline 1,000 ML 1000 ML IV (19:06)
--- NOTE | 2025-01-14 22:28 | HPE_ITS ---
Date of service: 01/14/25 Time of Service: 22:28 Assessment and Plan Assessment and plan (1) Acute asthma exacerbation: Start date: 01/14/25 Status: Acute Assessment and plan: This is a 39-year-old lady who has chronic persistent asthma now with exacerbation. She has not hypoxic but has severe expiratory wheeze and shortness of breath not clearing with aggressive nebulizer treatment. She has improved with IV Solu-Medrol and is not at baseline still having significant increased expiratory phase and audible wheeze at bedside. She has been in short sentences as well. She will continue with IV Solu-Medrol and oral doxycycline for possible bronchitis being a nicotine abuse with use of vape e-cigarettes daily. She can be converted to prednisone with increased activity and if she does well, she can go home after short observation. Viral screening was negative but she feels he cough a cold from her daughter. She is a full code. (2) Nicotine abuse: Assessment and plan: Patient vapes e-cigarettes daily and should stop with her asthma. He may have increased plugging and increased clearing of secretions in the hospital which may delay her recovery. (3) Chronic anxiety: Assessment and plan: Patient is on medical therapy without chronic Ativan but [place] [facility] [place] shows only 1 prescription for 8 tablets of lorazepam 0.5 mg written by the hospitalist in late July 2024. Will continue her other outpatient medical therapy while hospitalized. Long-term she should avoid benzodiazepines. (4) GERD (gastroesophageal reflux disease): Assessment and plan: Oral Protonix while on orals/IV steroid treatment. She has a history of GERD but is not on chronic PPI. History of Present Illness History of Present Illness Chief Complaint: Viral URI symptoms with wheezing and cough Narrative: This is a 39-year-old female patient who does vape daily and has a history of asthma which is chronic and persistent. She states that she has a viral URI that she obtained from her daughter and the morning of admission woke up coughing with wheezing. She took her dose of prednisone at home that she had leftover from previous treatments and frequent nebulizer treatments at home which was not improving her symptoms. She did not have any fever or chills and did not produce any sputum. She had no other complaints other than being more anxious with her breathing difficulty. She has never been intubated for her asthma. She was not hypoxic in the ED. Imaging did not reveal any infiltrate but patient was placed on doxycycline and was given IV Solu-Medrol with frequent nebulizers in the ED after first improving patient symptoms but then she worsened and decided that she was not able to go home. She was speaking in short sentences and continued to have significant wheeze. She will be admitted for observation for continued IV Solu-Medrol treatments, oral doxycycline and frequent nebulizer treatments. Lab evaluation was positive for leukocytosis with a white blood cell count of 13.73 with no left shift or lymphocytosis. Patient was not requiring oxygen therapy. She is a full code. Review of Systems Narrative: 13 point review of system otherwise unrevealing or stable. Patient does have difficulty with weather changes. PFS All Active Problems (Updated 01/14/25 @ 22:34 by Ole Rosario) Asthma exacerbation (Acute) Acute asthma exacerbation (Acute) Acute anxiety (Acute) Seasonal allergies (Chronic) Obesity, morbid, BMI 40.0-49.9 (Chronic) Medical History Chronic hyperglycemia Chronic anxiety Nicotine abuse GERD (gastroesophageal reflux disease) Asthma Surgical History H/O section History of bilateral tubal ligation Family History Maternal Grandfather Hypertension Maternal Aunt Hypertension Maternal Uncle Diabetes Lung cancer Maternal Uncle Diabetes Maternal Grandmother Diabetes Mother Prediabetes Social History Smoking/Tobacco Use Status: Current every day Tobacco Type: e-cigarettes Smoking risk assessment performed?: Yes Alcohol Intake: current Alcohol Intake frequency: a few times a month Alcohol type: wine Drug use: Occasionally Substance use type: marijuana Details: patient eats the marijuana gummies Housing: apartment Do you feel safe at home: Yes Do you feel safe in your relationship?: Yes Meds Allergies and Home Medications Allergies Allergy/AdvReac Type Severity Reaction Status Date / Time Penicillins Allergy Mild Skin Rash Verified 11/20/24 13:20 bee pollen AdvReac Severe Anaphylaxsi Verified 11/20/24 13:20 s pet dender Allergy Mild Itching Uncoded 11/20/24 13:20 mold AdvReac Severe Anaphylaxsi Uncoded 11/20/24 13:20 s Home Medications ?Medication ?Instructions ?Recorded ?Confirmed ?Type montelukast 10 mg tablet 10 mg PO DAILY 07/30/16 01/14/25 History (Singulair) loratadine 10 mg tablet 10 mg PO DAILY #90 tabs 10/03/19 01/14/25 Rx albuterol sulfate 90 mcg/actuation 2 puff inhalation Q2H PRN PRN #8.5 08/02/23 01/14/25 Rx aerosol inhaler (ProAir HFA) grams buspirone 10 mg tablet 10 mg PO DAILY 07/20/24 01/14/25 History albuterol sulfate 2.5 mg/3 mL 1.25 mg (1.5 mL) inhalation Q4H 08/05/24 01/14/25 Rx (0.083 %) solution for nebulization PRN shortness of breath or wheezing #75 mL ipratropium 0.5 mg-albuterol 3 mg 3 ml UPD Q6H #180 mL 08/05/24 01/14/25 Rx (2.5 mg base)/3 mL nebulization soln lorazepam 0.5 mg tablet 0.25 mg (1/2 x 0.5 mg) PO TID PRN 08/05/24 01/14/25 Rx #8 tabs albuterol sulfate 90 mcg/actuation 2 inh inhalation Q4H PRN #1 ea 12/12/24 01/14/25 Rx breath activated powder inhaler (ProAir RespiClick) budesonide-formoterol HFA 80 2 inh inhalation DAILY 12/12/24 01/14/25 History mcg-4.5 mcg/actuation aerosol inhaler hydroxyzine HCl 10 mg tablet 20 mg PO QHS 01/14/25 01/14/25 History Exam Narrative Exam Narrative: General: Patient is moderately to morbidly obese, in moderate distress from her cough and wheeze but is alert and oriented x 3. She does appear acutely ill. HEENT: Normocephalic, eyes with pupils equal and react to light symmetrically, extraocular movement intact and sclera anicteric. Oropharynx with moist mucosa and good dentition. Neck: Supple without JVD. Back: Stooped posture without CVA tenderness. Lungs: Bronchovesicular sounds diffusely with diffuse expiratory wheeze and increased expiratory phase, no focalizing expiratory rales or rhonchi. Expiratory wheeze worsened with cough. Breast: Exam deferred. Heart: Tachycardic rate with normal rhythm. No appreciable murmur or gallop. Abdomen: Obese contour, soft and nontender to palpation without palpable hepatosplenomegaly. Bowel sounds positive in all quadrants. Genitalia/rectal: Exam deferred. Skin: Normal color, moist and warm. Extremities: Without clubbing, cyanosis or pitting edema. Peripheral pulses intact. Neuro: Cranial nerves II through XII grossly intact, no tremor or focal neurological deficits. Psych: Slightly anxious, not depressed. No abnormal thought processes. Remote and recent memory intact. Results Imaging Imaging Studies: EXAM: XR CHEST 2V PA LATERAL Date of exam: 01/14/2025 CLINICAL HISTORY: cough, sob. TECHNIQUE: 2D digital imaging was performed. COMPARISON: CR XR PORTABLE CHEST AP from 12/11/2024 FINDINGS: 2 views: Heart size is normal. The mediastinum is not widened. Lungs are clear. No infiltrates nor pleural effusions. NO FRACTURES. NO PNEUMOTHORAX. IMPRESSION: No acute pulmonary findings. Labs 01/14/25 16:28 01/14/25 16:28 Labs: Laboratory Results - last 24 hr 01/14/25 01/14/25 01/14/25 16:28 16:43 17:32 WBC 13.73 H RBC 4.42 Hgb 13.6 Hct 41.7 MCV 94 MCH 30.8 MCHC 32.6 RDW 13.1 Plt Count 335 MPV 8.2 Immature Gran % 0.4 Neutrophils % 65.8 Lymphocytes % 25.7 Monocytes % 5.1 Eosinophils % 2.2 Basophils % 0.8 Nucleated RBC % 0.0 Absolute Neutrophils 9.03 H Absolute Lymphocytes 3.53 H Absolute Monocytes 0.70 Absolute Eosinophils 0.30 Absolute Basophils 0.11 VBG pH 7.37 VBG pCO2 50 VBG pO2 48 VBG HCO3 29 H VBG Total CO2 27 VBG O2 Saturation 85 VBG Base Excess 4 H Sodium 144 Potassium 3.5 Chloride 108 H Carbon Dioxide 29.9 Anion Gap 6.1 BUN 11 Creatinine 0.9 Est GFR (CKD-EPI 2020) 83.40 Glucose 104 Calcium 8.9 Magnesium 1.9 Total Bilirubin 0.4 AST 7 L ALT 20 Alkaline Phosphatase 81 Total Protein 6.8 Albumin 3.3 L COVID-19 Source Nasopharynx SARS-CoV-2 (PCR) Negative Influenza Type A (PCR) Negative Influenza Type B (PCR) Negative RSV (PCR) Negative Last Vital Signs Pulse 103 H 01/14/25 21:15 Resp 15 01/14/25 21:15 BP 155/87 H 01/14/25 21:15 Pulse Ox 99 01/14/25 21:15 Time Spent Time spent with Patient: 55-74 minutes Time was spent: preparing to see the patient(eg.review tests), obtaining and/or reviewing separately otained hiistory, ordering medications,tests, procedures, indepentently interpreting results and counseling the patient
[2025-01-15] VITALS (12 sets, daily range): BP systolic 103–123; BP diastolic 47–79; PULSE 101–115; RESP 5–22; TEMP 35.8–36.7; O2SAT 92–95
--- NOTE | 2025-01-15 01:15 | W.PC.ACHO ---
Registration Status: Primary Language: Preferred Language: ED Information & Data Chief Complaint SOB/SuddenOnset 01/14/25 16:45 Chief Complaint SOB/SuddenOnset 01/14/25 16:34 Triage Note asthma attack starting today 01/14/25 16:21 getting worse over time symptoms unresponsive to to MDI utilization. 30mg of prescribed prednisone administered approx 1600 today. Medical / Surgical History (Last Reviewed 01/14/25 @ 22:29 by Ole Rosario) Chronic hyperglycemia Chronic anxiety Nicotine abuse GERD (gastroesophageal reflux disease) Asthma (Last Reviewed 01/14/25 @ 22:29 by Ole Rosario) H/O section History of bilateral tubal ligation Most Recent Vital Signs Temperature 36.4 C L 01/15/25 00:07 Temperature Source Tympanic 01/15/25 00:05 Pulse 115 H 01/15/25 00:07 Pulse 106 H 01/14/25 23:50 Respiratory Rate 22 01/15/25 00:07 Respiratory Effort Short of Breath 01/15/25 00:07 Respiratory Depth Normal 01/15/25 00:07 Respiratory Pattern Tachypnea 01/15/25 00:07 Blood Pressure 123/77 01/15/25 00:07 Blood Pressure Mean 89 01/14/25 23:45 Blood Pressure Position Sitting 01/14/25 16:21 Pulse Oximetry 94 01/15/25 00:07 Oxygen Delivery Method Room Air 01/15/25 00:07 Oxygen Flow Rate 0 01/15/25 00:07 Pain Level 0 01/15/25 00:07 Allergies Penicillins Allergy (Mild, Verified 11/20/24 13:20) Skin Rash bee pollen Adverse Reaction (Severe, Verified 11/20/24 13:20) Anaphylaxsis pet dender Allergy (Mild, Uncoded 11/20/24 13:20) Itching mold Adverse Reaction (Severe, Uncoded 11/20/24 13:20) Anaphylaxsis Precautions Isolation Standard precaution 01/14/25 16:45 Active Medications Generic Name Dose Route Start Last Admin Trade Name Freq PRN Reason Stop Dose Admin Albuterol Sulfate 10 mg/ 0 mg 01/14/25 20:15 01/14/25 20:11 Sodium Chloride 9 ml UPD 10 mg DIRECTED YNES Administration IV IV Catheter Type [Right Saline Lock Antecubital] IV Catheter Gauge [Right 18 Antecubital] Diet Orders Category Date Time Status Regular/Normal [DIET] Nutrition 01/15/25 Breakfast Active Diagnostics 01/15/25 01/15/25 01/14/25 Range/Units 05:35 00:02 17:32 WBC Pending (4.4-10.8) 10^3/uL RBC Pending (3.93-5.22) 10^6/uL Hgb Pending (11.2-15.7) g/dL Hct Pending (36.0-46.0) % MCV Pending (80-95) fL MCH Pending (27.0-33.0) pg MCHC Pending (32.0-36.0) % RDW Pending (11.7-14.6) % Plt Count Pending (130-400) 10^3/uL MPV Pending (8.0-11.0) fL Immature Gran % % Neutrophils % % Lymphocytes % % Monocytes % % Eosinophils % % Basophils % % Nucleated RBC % (0.0-0.3) % Absolute Neutrophils (1.2-6.7) 10^3/uL Absolute Lymphocytes (1.2-3.4) 10^3/uL Absolute Monocytes (0.1-0.8) 10^3/uL Absolute Eosinophils (0.0-0.7) 10^3/uL Absolute Basophils (0.0-0.2) 10^3/uL VBG pH 7.37 (7.31-7.41) VBG pCO2 50 (41-51) mmHg VBG pO2 48 mmHg VBG HCO3 29 H (23-28) mmol/L VBG Total CO2 27 (24-29) mmol/L VBG O2 Saturation 85 % VBG Base Excess 4 H (-2-3) mmol/L Sodium Pending (136-145) mmol/L Potassium Pending (3.5-5.1) mmol/L Chloride Pending (98-107) mmol/L Carbon Dioxide Pending (21.0-32.0) mmol/L Anion Gap Pending (3-11) mmol/L BUN Pending (7-18) mg/dL Creatinine Pending (0.55-1.02) mg/dL Est GFR (CKD-EPI 2020) Pending (mL/min/1.73m2) Glucose Pending (74-106) mg/dL Calcium Pending (8.5-10.1) mg/dL Magnesium Pending (1.8-2.4) mg/dL Total Bilirubin Pending (0.2-1.0) mg/dL AST Pending (15-37) U/L ALT Pending (14-59) U/L Alkaline Phosphatase Pending (46-116) U/L Total Protein Pending (6.4-8.2) g/dL Albumin Pending (3.4-5.0) g/dL TSH Pending COVID-19 Source SARS-CoV-2 (PCR) (Negative) Influenza Type A (PCR) (Negative) Influenza Type B (PCR) (Negative) RSV (PCR) (Negative) 01/14/25 01/14/25 Range/Units 16:43 16:28 WBC 13.73 H (4.4-10.8) 10^3/uL RBC 4.42 (3.93-5.22) 10^6/uL Hgb 13.6 (11.2-15.7) g/dL Hct 41.7 (36.0-46.0) % MCV 94 (80-95) fL MCH 30.8 (27.0-33.0) pg MCHC 32.6 (32.0-36.0) % RDW 13.1 (11.7-14.6) % Plt Count 335 (130-400) 10^3/uL MPV 8.2 (8.0-11.0) fL Immature Gran % 0.4 % Neutrophils % 65.8 % Lymphocytes % 25.7 % Monocytes % 5.1 % Eosinophils % 2.2 % Basophils % 0.8 % Nucleated RBC % 0.0 (0.0-0.3) % Absolute Neutrophils 9.03 H (1.2-6.7) 10^3/uL Absolute Lymphocytes 3.53 H (1.2-3.4) 10^3/uL Absolute Monocytes 0.70 (0.1-0.8) 10^3/uL Absolute Eosinophils 0.30 (0.0-0.7) 10^3/uL Absolute Basophils 0.11 (0.0-0.2) 10^3/uL VBG pH (7.31-7.41) VBG pCO2 (41-51) mmHg VBG pO2 mmHg VBG HCO3 (23-28) mmol/L VBG Total CO2 (24-29) mmol/L VBG O2 Saturation % VBG Base Excess (-2-3) mmol/L Sodium 144 (136-145) mmol/L Potassium 3.5 (3.5-5.1) mmol/L Chloride 108 H (98-107) mmol/L Carbon Dioxide 29.9 (21.0-32.0) mmol/L Anion Gap 6.1 (3-11) mmol/L BUN 11 (7-18) mg/dL Creatinine 0.9 (0.55-1.02) mg/dL Est GFR (CKD-EPI 2020) 83.40 (mL/min/1.73m2) Glucose 104 (74-106) mg/dL Calcium 8.9 (8.5-10.1) mg/dL Magnesium 1.9 (1.8-2.4) mg/dL Total Bilirubin 0.4 (0.2-1.0) mg/dL AST 7 L (15-37) U/L ALT 20 (14-59) U/L Alkaline Phosphatase 81 (46-116) U/L Total Protein 6.8 (6.4-8.2) g/dL Albumin 3.3 L (3.4-5.0) g/dL TSH COVID-19 Source Nasopharynx SARS-CoV-2 (PCR) Negative (Negative) Influenza Type A (PCR) Negative (Negative) Influenza Type B (PCR) Negative (Negative) RSV (PCR) Negative (Negative) Intake and Output - 24 Hour Total 01/14/25 16:18 thru 01/15/25 00:07 Intake Total 750 Balance 750 Weight 104.508 kg Intake: IV 750 Falls Risk Assessment History of Falls No History 01/15/25 00:07 Contributing Factors No Factors 01/15/25 00:07 Ambulatory Aids Independent 01/15/25 00:07 Tubes/Lines None 01/15/25 00:07 Gait Evaluation No gait disturbance 01/15/25 00:07 Cognition No cognitive impairment 01/15/25 00:07 Fall Total Score 0 01/15/25 00:07 Level of Risk Standard/Low Risk 01/15/25 00:07 Problems (Last Reviewed 01/14/25 @ 22:29 by Ole Rosario) Asthma exacerbation (Acute) Acute asthma exacerbation (Acute) v v v v v v v v v Sending and/or Receiving Nurses: Please use comment section below to note any information pertinent to the patient hand-off not included above. Information / Comments: pt here for asthma exacerbation. Report received from: rajeev Masterson RN
[2025-01-15] MEDS: methylPREDNISolone SUCC 125 MG VIAL 80 MG IVP ×2 (01:20→09:26)
[2025-01-15] MEDS: Pantoprazole 40 MG TABCR PO ×2 (01:21→07:50)
[2025-01-15] MEDS: Doxycycline Hyclate 100 MG CAP PO ×2 (01:21→08:27)
[2025-01-15] MEDS: Albuterol/Ipratropium 3 ML UPD VIAL UPD ×3 (02:05→13:11)
[2025-01-15 06:49] LABS: HCT 37.8 % (36.0-46.0); HGB 12.7 g/dL (11.2-15.7); MCH 30.9 pg (27.0-33.0); MCHC 33.6 % (32.0-36.0); MCV 92 fL (80-95); MPV 8.2 fL (8.0-11.0); Platelet Count 330 10^3/uL (130-400); RBC 4.11 10^6/uL (3.93-5.22); RDW 13.1 % (11.7-14.6); RDW-SD 44.1 fL; WBC 15.53 10^3/uL (4.4-10.8)
[2025-01-15 07:11] LABS: ALT 17 U/L (14-59); AST < 5 U/L (15-37); Albumin 2.9 g/dL (3.4-5.0); Alkaline Phosphatase 73 U/L (46-116); Anion Gap 9.2 mmol/L (3-11); BUN 10 mg/dL (7-18); Bilirubin, Total 0.3 mg/dL (0.2-1.0); CO2 26.8 mmol/L (21.0-32.0); CREATININE 0.9 mg/dL (0.55-1.02); Calcium 8.8 mg/dL (8.5-10.1); Chloride 107 mmol/L (98-107); Glucose 184 mg/dL (74-106); Potassium 3.6 mmol/L (3.5-5.1); Sodium 143 mmol/L (136-145); TSH (W/Ref FT4) 0.23 uIU/mL (0.36-3.74); Total Protein 6.1 g/dL (6.4-8.2)
[2025-01-15 07:27] LABS: FREE T4 0.91 ng/dL (0.76-1.46)
[2025-01-15] MEDS: Enoxaparin 40 MG/0.4 ML SYR SC (07:53)
[2025-01-15] MEDS: Budesonide/Formoterol 80/4.5 6.9 GM 60 PUFF INH IH (08:11)
[2025-01-15] MEDS: Loratidine 10 MG TAB PO (08:25)
[2025-01-15] MEDS: Montelukast 10 MG TAB PO (08:25)
[2025-01-15] MEDS: busPIRone 5 MG TAB 10 MG PO (08:26)
--- NOTE | 2025-01-15 08:55 | PDOC.CMIN ---
Date of service: 01/15/25 Time of Service: 08:55 Care Management Initial Assmt Initial Assessment Reason for Hospitalization: asthma exacerbation Functional Status/Living Situation Patient Presentation: Ryann was sitting up in a chair visiting with her mother when CM met with her. She appeared to be in good spirits and stated that she is feeling well. She verbalized that she would like to go home but has been advised to stay one more night. 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 Ryann is in the process of getting a divorce and has had some challenges recently. She lives alone in a single family home in [place] but sometimes stays at her Mom's house. She has 4 children, 3 of which live independently with their significant others. Her son is with his father until he finishes 8th grade. They all live locally and remain close as a family. Ryann was admitted with an exacerbation of her asthma. She was not hypoxic however she had expiratory wheezes and dyspnea. She is feeling better and will likely be discharged tomorrow if she continues to improve. Town of Residence: [place] Resides with: Alone Significant Other/Family: Local Employment Status: Employed ([employer]) Instrumental Activities of Daily Living (ADLs): Independent Medications Medication Management: No Issues/Barriers identified Advance Directives Advance Directives: Do you have an Advance Directive: N 07/30/16 05:38 AD On File at [facility]: N 07/30/16 05:38 Date Asked 01/14/25 01/14/25 16:45 AD Date Reviewed COLST On File at [facility] No 08/09/22 19:09 COLST Date Scanned Code Status Resuscitation Status Full Code Portal Pt does not currently have a portal and education provided: Yes Insurance Coverage/Financial Issues Insurance: self pay - has applied for Medicaid and was given an [facility] Patient Financial Assistance packet by Care Team Visit Care Team Role Provider Type Reese Barrera Primary Care Provider NON-[facility] STAFF PHYSICIAN Dayanna Erwin Emergency Provider NURSE PRACTITIONER Ole Rosario Admit Provider NON-[facility] STAFF PHYSICIAN Attending Provider Discharge Potential Discharge Needs: PCP F/U Appt Anticipated Barriers to Discharge: None Identified Patient/Family Education Needs: Review discharge instructions, discuss Ask Me Three Transportation: Private vehicle Plan: Anticipate Ryann will be discharged home with no new services when medically cleared. She will follow up with her community providers and plan of care and transport with family. CM will follow and continue to support discharge planning. Social Determinants of Health Screening Social Determinants of health last assessed in clinic: 01/15/25 Will the Patient Participate in the Screening?: Yes Do you worry about having a steady place to live?: no Problems where you live: no known problems In the past 12 months, have you had to go without electric, gas, oil or water in your home?: no 1. Within the past 12 months, we worried whether our food would run out before we got money to buy more.: Never true 2. Within the past 12 months, the food we bought just didn't last and we didn't have money to get more.: Never true Has lack of transportation kept you from medical appointments or from doing things needed for daily living?: no Has anyone in your life made you feel unsafe or unsupported?: yes How often does anyone, including family and friends, physically hurt you?: Never How often does anyone, including family and friends, insult or talk down to you?: Never How often does anyone, including family and friends, threaten you with harm?: Never How often does anyone, including family and friends, scream or curse at you?: Never [facility] Safety total score: 4 How hard is it for you to pay for the very basics like food, housing, medical care, and heating? 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 Not a problem currently PFSH All Active Problems (Updated 01/15/25 @ 13:15 by Rossy Houston, ANALYTICS ASSOCIATE) On deep vein thrombosis (DVT) prophylaxis (Acute) Asthma exacerbation (Acute) Acute asthma exacerbation (Acute) Acute anxiety (Acute) Seasonal allergies (Chronic) Obesity, morbid, BMI 40.0-49.9 (Chronic) Medical History Chronic hyperglycemia Chronic anxiety Nicotine abuse GERD (gastroesophageal reflux disease) Asthma Surgical History H/O section History of bilateral tubal ligation Family History Maternal Grandfather Hypertension Maternal Aunt Hypertension Maternal Uncle Diabetes Lung cancer Maternal Uncle Diabetes Maternal Grandmother Diabetes Mother Prediabetes Social History Smoking/Tobacco Use Status: Current every day Tobacco Type: e-cigarettes Smoking risk assessment performed?: Yes Alcohol Intake: current Alcohol Intake frequency: a few times a month Alcohol type: wine Drug use: Occasionally Substance use type: marijuana Details: patient eats the marijuana gummies Housing: apartment Do you feel safe at home: Yes Do you feel safe in your relationship?: Yes
[2025-01-15] MEDS: Normal Saline Flush 10 ML SYR IVP (09:27)
--- NOTE | 2025-01-15 10:11 | W.PM.PROGNOT ---
Date of Service Date of service: 01/15/25 Time of Service: 10:11 Assessment and Plan Assessment and plan (1) Acute asthma exacerbation: Start date: 01/14/25 Status: Acute Assessment and plan: Hx of hronic persistent asthma admitted for exacerbation, not hypoxic but ongoing expiratory wheezing , still expiratory phase > inspiratory phase. No fever, colored sputum production, sick contact Now PRN nebulizer treatment Peak flow oral prednisone today then consider taper at d/c Viral screening was negative but she feels he cough a cold from her daughter, but denied sick contact when asked (2) Nicotine abuse: Assessment and plan: Encourage nicotine vaping cessation- f/u with PCP Risk of increased plugging and decrease secretion clearance (3) Chronic anxiety: Assessment and plan: Ongoing out patient management (4) GERD (gastroesophageal reflux disease): Assessment and plan: Continue oral Protonix while on steroids treatment; not on chronic PPI. (5) On deep vein thrombosis (DVT) prophylaxis: Status: Deleted Assessment and plan: On LMWH Discussed with Geovanna Subjective Subjective Patient reports: feels better, tolerating liquids well, tolerating a regular diet and other (reports wheezing, fatigue, not at baseline); denies diarrhea, nausea, vomiting, shortness of breath or fever Exam Narrative Exam Narrative: Constitutional The patient is in bed comfortable without acute distress Neuro:alert and oriented to self, person, place time and situation. No neurological focal deficit Resp: Shallow breathing ; E> I, diminished breaths sound , faint expiratory wheezing upper lungs Cardio: regular rhythm, S1, S2, no murmur GI: Abdomen is not distended, soft and non tender, bowel sounds are present Extremities:moves all 4 extremities Psych: RASS 0, congruent mood and normal affect. Objective Last Vital Signs Temp 36.3 C L 01/15/25 07:12 Pulse 105 H 01/15/25 07:26 Resp 16 01/15/25 07:26 BP 110/62 01/15/25 07:12 Pulse Ox 92 01/15/25 07:17 Laboratory Results - last 24 hr 01/14/25 01/14/25 01/14/25 16:28 16:43 17:32 WBC 13.73 H RBC 4.42 Hgb 13.6 Hct 41.7 MCV 94 MCH 30.8 MCHC 32.6 RDW 13.1 Plt Count 335 MPV 8.2 Immature Gran % 0.4 Neutrophils % 65.8 Lymphocytes % 25.7 Monocytes % 5.1 Eosinophils % 2.2 Basophils % 0.8 Nucleated RBC % 0.0 Absolute Neutrophils 9.03 H Absolute Lymphocytes 3.53 H Absolute Monocytes 0.70 Absolute Eosinophils 0.30 Absolute Basophils 0.11 VBG pH 7.37 VBG pCO2 50 VBG pO2 48 VBG HCO3 29 H VBG Total CO2 27 VBG O2 Saturation 85 VBG Base Excess 4 H Sodium 144 Potassium 3.5 Chloride 108 H Carbon Dioxide 29.9 Anion Gap 6.1 BUN 11 Creatinine 0.9 Est GFR (CKD-EPI 2020) 83.40 Glucose 104 Calcium 8.9 Magnesium 1.9 Total Bilirubin 0.4 AST 7 L ALT 20 Alkaline Phosphatase 81 Total Protein 6.8 Albumin 3.3 L TSH Free T4 COVID-19 Source Nasopharynx SARS-CoV-2 (PCR) Negative Influenza Type A (PCR) Negative Influenza Type B (PCR) Negative RSV (PCR) Negative 01/15/25 01/15/25 06:07 06:07 WBC 15.53 H RBC 4.11 Hgb 12.7 Hct 37.8 MCV 92 MCH 30.9 MCHC 33.6 RDW 13.1 Plt Count 330 MPV 8.2 Immature Gran % Neutrophils % Lymphocytes % Monocytes % Eosinophils % Basophils % Nucleated RBC % Absolute Neutrophils Absolute Lymphocytes Absolute Monocytes Absolute Eosinophils Absolute Basophils VBG pH VBG pCO2 VBG pO2 VBG HCO3 VBG Total CO2 VBG O2 Saturation VBG Base Excess Sodium 143 Potassium 3.6 Chloride 107 Carbon Dioxide 26.8 Anion Gap 9.2 BUN 10 Creatinine 0.9 Est GFR (CKD-EPI 2020) 83.40 Glucose 184 H Calcium 8.8 Magnesium 2.0 Total Bilirubin 0.3 AST < 5 L ALT 17 Alkaline Phosphatase 73 Total Protein 6.1 L Albumin 2.9 L TSH Cancelled 0.23 L Free T4 0.91 COVID-19 Source SARS-CoV-2 (PCR) Influenza Type A (PCR) Influenza Type B (PCR) RSV (PCR) Time Spent with Patient Time Spent with Patient: 35-49 minutes Time was spent: preparing to see the patient(eg.review tests), obtaining and/or reviewing separately otained hiistory, ordering medications,tests, procedures, referring, communicating with other health direct support professional caregiver, indepentently interpreting results, counseling the patient and care coordination
--- NOTE | 2025-01-15 10:44 | NUR.NOTE ---
Patient is sitting up in her bed eating her lunch. She has been sleeping most of the day. PT states she didn't get much sleep last night. linens on her bed were changed while she was in the bathroom. She did refuse all am care.
--- NOTE | 2025-01-15 14:08 | NUR.NOTE ---
Nursing Note: Reviewed documentation by Darlene Lara, student nurse, and in agreement with findings.
[2025-01-15] MEDS: predniSONE 20 MG TAB 60 MG PO (14:49)
[2025-01-15] MEDS: Levalbuterol 1.25 MG/3 ML UPD VIAL UPD (16:40)
--- NOTE | 2025-01-15 17:06 | DSE_ITS ---
Date of service: 01/15/25 Time of Service: 17:06 DS: Diagnosis Discharge Diagnosis (1) Acute asthma exacerbation: Status: Acute (2) Nicotine abuse: (3) Chronic anxiety: (4) GERD (gastroesophageal reflux disease): (5) On deep vein thrombosis (DVT) prophylaxis: Status: Acute Discharge Plan Disposition Patient Disposition: Home Condition: Improving Discharge Details Reason For Visit: Moderate persistent asthma with acute exacerbation Admit Date/Time: 01/14/25 22:41 Admit Provider: Ole Rosario Attending Provider: Ole Rosario [facility] Course: This 39 years old female patient with past medical history of anxiety, vaping, asthma and frequent exacerbation, admitted about a month ago w similar presentation presented to the ED on 01/14/25 for evaluation of acute asthma exacerbation with coughing and wheezing not im[proved withalbuterol inhaler and albuterol nebulizer X 3 and 30 mg prednisone prior to her arrival to the ED. WBc was 13, no other actionable findings on blood work or imaging. The patient was admitted to the medical surgical floor by the hospitalist for acute asthma exacerbation w/o hypoxic respiratory failure. Methylprednisolone was transitioned to prednisone and doxycycline was continued. Symbicort increased to 2 puffs BID and PRN with max of 12 puffs/24 hours.The patient PF was in the red with PEF< 70% but insisting on going home. Stating feeling better. The patient will be discharged home on previously mentioned medicines and will have to f/u with PCP within 7 days. Albuterol discontinued, xopenex added d/t increased anxiety w/o her SENAIT. Discussed with Dr. Austin Home Meds and New Rx's Prescriptions: New budesonide-formoterol [Symbicort] 80-4.5 mcg/actuation Hfa Aerosol Inhaler 2 puff inhalation BID Qty: 10.2 0RF budesonide-formoterol [Symbicort] 80-4.5 mcg/actuation Hfa Aerosol Inhaler 2 puff inhalation Q2H PRN MDD max 12 puffs a day total PRN (Reason: Wheezing , asthma exacerbation) Qty: 10.2 0RF doxycycline hyclate 100 mg Capsule 100 mg PO BID Qty: 8 0RF levalbuterol HCl 1.25 mg/3 mL Solution For Nebulization 1.25 mg UPD Q6H PRN PRN (Reason: shortness of breath or wheezing) Qty: 72 0RF prednisone 20 mg Tablet 60 mg PO DAILY Qty: 18 0RF Rx Instructions: Take 60 mg X 3 days Then 40 mg X 3 days then 20 mg X 3 days then stop pantoprazole 40 mg Tablet,Delayed Release (Dr/Ec) 40 mg PO DAILY@0730 Qty: 12 0RF Continued montelukast [Singulair] 10 MG tablet 10 mg PO DAILY loratadine 10 mg Tablet 10 mg PO DAILY Qty: 90 1RF buspirone 10 mg tablet 10 mg PO DAILY Patient Comments: TAKE 1 TABLET BY MOUTH TWICE DAILY FOR 14 DAYS ipratropium-albuterol 0.5 mg-3 mg(2.5 mg base)/3 mL Solution For Nebulization 3 ml UPD Q6H Qty: 180 0RF lorazepam 0.5 mg tablet 0.25 mg PO TID PRNQty: 8 0RF Rx Instructions: Short course of Lorazepam ordered 3 times per day as needed- further antianxiety regimen to be decided with PCP during follow-up appointment on 08/10/2024 ProAir RespiClick 90 mcg/actuation aerosol powdr breath activated 2 inh inhalation Q4H PRNQty: 1 0RF hydroxyzine HCl 10 mg tablet 20 mg PO QHS Discontinued albuterol sulfate 2.5 mg /3 mL (0.083 %) solution for nebulization 1.25 mg IH Q4H PRN (Reason: shortness of breath or wheezing) Qty: 75 2RF albuterol sulfate [ProAir HFA] 200 PUFF HFA aerosol inhaler 2 puff Inhalation Q2H PRN PRNQty: 8.5 0RF budesonide-formoterol 80-4.5 mcg/actuation HFA aerosol inhaler 2 inh inhalation DAILY Discharge Instructions Referrals: Reese Barrera [Primary Care Provider] - Activity:: Activity as Tolerated Equipment/Supplies:: No Equipment Needed Diet:: As Tolerated DS: Summary Time Spent with Patient providing and/or coordinating discharge services: Greater than 30 minutes Status at Discharge Functional status at discharge: independent ambulation Overall status at discharge: patient is progressing back to baseline Mental Status: mental status grossly normal Speech and Movement: speech and movement normal Mood: congruent mood Affect: normal affect Quality:SDOH Health Related Social Needs: Health related social needs food insecurity (Z59.41) Health related social needs details 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 Not a problem currently Exam Narrative Exam Narrative: Constitutional The patient is in bed comfortable without acute distress Neuro:alert and oriented to self, person, place time and situation. No neurological focal deficit Resp: Shallow breathing ; E> I, diminished breaths sound , faint expiratory wheezing upper lungs this AM - no wheezing in PM but PF still suboptimal, improved air flow bilat. Cardio: regular rhythm, S1, S2, no murmur GI: Abdomen is not distended, soft and non tender, bowel sounds are present Extremities:moves all 4 extremities Psych: RASS 0, congruent mood and normal affect. Psych Mental Status: mental status grossly normal Speech and Movement: speech and movement normal Mood: congruent mood Affect: normal affect DS: Data Vitals/I&O Vitals and I&O: Vital Signs Temperature 35.8 C L 01/15/25 15:08 Temperature Source Temporal Artery Scan 01/15/25 15:08 Pulse 115 H 01/15/25 16:53 Pulse 106 H 01/14/25 23:50 Respiratory Rate 14 01/15/25 16:40 Respiratory Effort Short of Breath 01/15/25 00:07 Respiratory Depth Normal 01/15/25 00:07 Respiratory Pattern Tachypnea 01/15/25 00:07 Blood Pressure 123/79 01/15/25 15:08 Blood Pressure Mean 89 01/14/25 23:45 Blood Pressure Position Sitting 01/14/25 16:21 Pulse Oximetry 95 01/15/25 16:40 Oxygen Delivery Method Room Air 01/15/25 16:40 Oxygen Flow Rate 0 01/15/25 16:40 Pain Level 0 01/15/25 15:08 Comment RN notified of vitals 01/15/25 07:12 Intake & Output 01/14/25 01/15/25 01/15/25 23:59 11:59 23:59 Intake Total 750 / 750 0 / 0 0 / 0 Output Total 300 / 800 500 / 800 Balance 750 / 750 -300 / -800 -500 / -800 Weight 110.6 kg 104.508 kg Intake: IV 750 / 750 0 / 0 0 / 0 Output: Urine 300 / 800 500 / 800 Other: Urine Color Yellow Straw Urine Appearance Clear Clear Urine Odor Normal Comment PT went to the toilet independently Data Completed and Pending Labs on day of discharge: Labs from last 24 hours 01/15/25 01/15/25 01/14/25 06:07 06:07 17:32 WBC 15.53 H RBC 4.11 Hgb 12.7 Hct 37.8 MCV 92 MCH 30.9 MCHC 33.6 RDW 13.1 Plt Count 330 MPV 8.2 Immature Gran % Neutrophils % Lymphocytes % Monocytes % Eosinophils % Basophils % Nucleated RBC % Absolute Neutrophils Absolute Lymphocytes Absolute Monocytes Absolute Eosinophils Absolute Basophils VBG pH 7.37 VBG pCO2 50 VBG pO2 48 VBG HCO3 29 H VBG Total CO2 27 VBG O2 Saturation 85 VBG Base Excess 4 H Sodium 143 Potassium 3.6 Chloride 107 Carbon Dioxide 26.8 Anion Gap 9.2 BUN 10 Creatinine 0.9 Est GFR (CKD-EPI 2020) 83.40 Glucose 184 H Calcium 8.8 Magnesium 2.0 Total Bilirubin 0.3 AST < 5 L ALT 17 Alkaline Phosphatase 73 Total Protein 6.1 L Albumin 2.9 L TSH 0.23 L Cancelled Free T4 0.91 COVID-19 Source SARS-CoV-2 (PCR) Influenza Type A (PCR) Influenza Type B (PCR) RSV (PCR) 01/14/25 01/14/25 16:43 16:28 WBC 13.73 H RBC 4.42 Hgb 13.6 Hct 41.7 MCV 94 MCH 30.8 MCHC 32.6 RDW 13.1 Plt Count 335 MPV 8.2 Immature Gran % 0.4 Neutrophils % 65.8 Lymphocytes % 25.7 Monocytes % 5.1 Eosinophils % 2.2 Basophils % 0.8 Nucleated RBC % 0.0 Absolute Neutrophils 9.03 H Absolute Lymphocytes 3.53 H Absolute Monocytes 0.70 Absolute Eosinophils 0.30 Absolute Basophils 0.11 VBG pH VBG pCO2 VBG pO2 VBG HCO3 VBG Total CO2 VBG O2 Saturation VBG Base Excess Sodium 144 Potassium 3.5 Chloride 108 H Carbon Dioxide 29.9 Anion Gap 6.1 BUN 11 Creatinine 0.9 Est GFR (CKD-EPI 2020) 83.40 Glucose 104 Calcium 8.9 Magnesium 1.9 Total Bilirubin 0.4 AST 7 L ALT 20 Alkaline Phosphatase 81 Total Protein 6.8 Albumin 3.3 L TSH Free T4 COVID-19 Source Nasopharynx SARS-CoV-2 (PCR) Negative Influenza Type A (PCR) Negative Influenza Type B (PCR) Negative RSV (PCR) Negative PFSH All Active Problems (Updated 01/15/25 @ 13:15 by Rossy Lopez APRN) On deep vein thrombosis (DVT) prophylaxis (Acute) Asthma exacerbation (Acute) Acute asthma exacerbation (Acute) Acute anxiety (Acute) Seasonal allergies (Chronic) Obesity, morbid, BMI 40.0-49.9 (Chronic) Medical History Chronic hyperglycemia Chronic anxiety Nicotine abuse GERD (gastroesophageal reflux disease) Asthma Surgical History H/O section History of bilateral tubal ligation Family History Maternal Grandfather Hypertension Maternal Aunt Hypertension Maternal Uncle Diabetes Lung cancer Maternal Uncle Diabetes Maternal Grandmother Diabetes Mother Prediabetes Social History Smoking/Tobacco Use Status: Current every day Tobacco Type: e-cigarettes Smoking risk assessment performed?: Yes Alcohol Intake: current Alcohol Intake frequency: a few times a month Alcohol type: wine Drug use: Occasionally Substance use type: marijuana Details: patient eats the marijuana gummies Housing: apartment Do you feel safe at home: Yes Do you feel safe in your relationship?: Yes Time Spent with Patient Time Spent with Patient: >85 minutes Time was spent: preparing to see the patient(eg.review tests), obtaining and/or reviewing separately otained hiistory, ordering medications,tests, procedures, referring, communicating with other health memory care program resident, indepentently interpreting results, counseling the patient and care coordination
[2025-01-15] MEDS: Acetaminophen 325 MG TAB PO (17:25)
== END 2025-01-15 18:07 | disposition home or self-care (01) ==
LOC: ER 22:44 → MS 01-15 08:43
PROVIDERS: Admitting Provider Family Medicine; Emergency Provider Nurse Practitioner Family; PCP Family Medicine; Visit Provider Family Medicine
DX: J45.41 Moderate persistent asthma with (acute) exacerbation (principal); Z68.41 Body mass index [BMI] 40.0-44.9, adult; K21.9 Gastro-esophageal reflux disease without esophagitis; R06.02 Shortness of breath; F17.290 Nicotine dependence, other tobacco product, uncomplicated; F41.9 Anxiety disorder, unspecified; E66.01 Morbid (severe) obesity due to excess calories
CPT/HCPCS: 00123; 36415; 80053; 82805; 85027; 87637; 94640; 96361; 96372; 96374; 96375; 96376; 99285; J1650; 71046; 83735; 84439; 84443; 85025; 94664; 99222; 99239; G0378; J2060; J2919; J3475; J7512; J7613; J7614; J7620

== ENCOUNTER 2025-04-30 18:21 | Emergency (ER) | payer SELFPAY ==
[2025-04-30] VITALS (45 sets, daily range): BP systolic 81–110; BP diastolic 30–72; PULSE 44–121; RESP 10–28; O2SAT 83–100
--- NOTE | 2025-04-30 18:15 | RT.EKG_ITS ---
APPROVED REPORT Exam: Resting ECG Reason for Exam: dyspnea Patient Location: E HR:112 bpm ECG Measurements Heart Rate 112 AXIS MI 126 P 82 QRSd 100 QRS 80 QT 333 T -89 QTc 455 Conclusion Sinus tachycardia...rate> 99 Right atrial enlargement...P>0.25mV 2 lds or<-0.24mV aVR/aVL no ST segment or T wave abnormalities to suggest occlusive ND
[2025-04-30 18:38] LABS: BE (Venous) 1 mmol/L (-2-3); HCO3 (Venous) 26 mmol/L (23-28); O2 Sat (Venous) 89 %; TCO2 (Venous) 23 mmol/L (24-29); pCO2 (Venous) 42 mmHg (41-51); pO2 (Venous) 54 mmHg
[2025-04-30 18:39] LABS: HCT 43.7 % (36.0-46.0); HGB 14.6 g/dL (11.2-15.7); MCH 30.5 pg (27.0-33.0); MCHC 33.4 % (32.0-36.0); MCV 91 fL (80-95); MPV 7.9 fL (8.0-11.0); Platelet Count 317 10^3/uL (130-400); RBC 4.79 10^6/uL (3.93-5.22); RDW 13.2 % (11.7-14.6); RDW-SD 44.1 fL; WBC 9.05 10^3/uL (4.4-10.8)
[2025-04-30] MEDS: Albuterol 2.5 MG/3 ML INH SOLN VIAL (18:41)
[2025-04-30] MEDS: methylPREDNISolone SUCC 125 MG VIAL IVP (18:43)
[2025-04-30] MEDS: MAGNESIUM SULFATE 2 GM/50 ML BAG IV_INF (18:44)
[2025-04-30] MEDS: ALBUTEROL 15 MG, SODIUM CHLORIDE 0.9% FOR INH. 3 ML UPD (18:58)
[2025-04-30 19:01] LABS: ALT 20 U/L (14-59); AST 9 U/L (15-37); Albumin 3.3 g/dL (3.4-5.0); Alkaline Phosphatase 87 U/L (46-116); Anion Gap 7.0 mmol/L (3-11); BUN 10 mg/dL (7-18); Bilirubin, Total 0.4 mg/dL (0.2-1.0); CO2 28.0 mmol/L (21.0-32.0); Calcium 8.8 mg/dL (8.5-10.1); Chloride 105 mmol/L (98-107); Estimated GFR 82.88 (mL/min/1.73m2); Glucose 109 mg/dL (74-106); Magnesium 1.8 mg/dL (1.8-2.4); Potassium 3.7 mmol/L (3.5-5.1); Sodium 140 mmol/L (136-145); Total Protein 6.9 g/dL (6.4-8.2)
[2025-04-30 19:04] LABS: BE (Venous) 3 mmol/L (-2-3); HCO3 (Venous) 28 mmol/L (23-28); O2 Sat (Venous) 75 %; TCO2 (Venous) 25 mmol/L (24-29); pCO2 (Venous) 46 mmHg (41-51); pO2 (Venous) 39 mmHg
--- NOTE | 2025-04-30 19:22 | DI.RAD_ITS ---
Exam(s) XR PORTABLE CHEST AP EXAM: XR PORTABLE CHEST AP CLINICAL HISTORY: asthma TECHNIQUE: 2D digital imaging was performed of the chest. One image was obtained. An AP view was obtained. COMPARISON: CR XR CHEST 2V PA LATERAL from 01/14/2025 FINDINGS: MEDIASTINUM: Normal. HEART: Normal. PULMONARY VASCULATURE: Normal. LUNGS: Clear. PLEURAL SPACE: No pleural effusion or pneumothorax. BONE:Within normal limits for the patient's age. OTHER FINDINGS:Normal. IMPRESSION: 1. No acute pulmonary findings. 2. The preliminary [facility] report was reviewed. DATA REPOSITORY: RADIATION DOSE DELIVERED:
--- NOTE | 2025-04-30 19:56 | DI.[facility]_ITS ---
PROCEDURE INFORMATION: Exam: XR Chest Exam date and time: 04/30/2025 7:24 PM Age: 40 years old Clinical indication: Shortness of breath TECHNIQUE: Imaging protocol: Radiologic exam of the chest. Views: 1 view. COMPARISON: CR XR CHEST 2V PA LATERAL 01/14/2025 5:10 PM FINDINGS: Lungs: Unremarkable. No consolidation. Pleural spaces: Unremarkable. No pleural effusion. No pneumothorax. Heart/Mediastinum: Unremarkable. No cardiomegaly. Bones/joints: Unremarkable. IMPRESSION: No acute findings. Dictated and Authenticated by: Moises Webster MD. Orderin Claudia Hurd MD
[2025-04-30 20:08] LABS: BE (Venous) 1 mmol/L (-2-3); HCO3 (Venous) 27 mmol/L (23-28); O2 Sat (Venous) 81 %; TCO2 (Venous) 24 mmol/L (24-29); pCO2 (Venous) 46 mmHg (41-51); pO2 (Venous) 45 mmHg
[2025-04-30] MEDS: Albuterol/Ipratropium 3 ML UPD VIAL UPD ×3 (20:12→20:13)
[2025-04-30 21:09] LABS: BE (Venous) 1 mmol/L (-2-3); HCO3 (Venous) 26 mmol/L (23-28); O2 Sat (Venous) 93 %; TCO2 (Venous) 23 mmol/L (24-29); pCO2 (Venous) 46 mmHg (41-51); pO2 (Venous) 64 mmHg
--- NOTE | 2025-04-30 21:31 | ED.GENADUL_ITS ---
Discharge Plan Disposition Patient Disposition: Home Condition: Good Discharge Details Clinical Impression: Acute asthma exacerbation Primary Care Provider: Reese Barrera ED Provider: Vannessa Taylor Home Meds and New Rx's Prescriptions: New prednisone 20 mg tablet 60 mg PO DAILY Qty: 12 0RF Continued montelukast [Singulair] 10 MG tablet 10 mg PO DAILY loratadine 10 mg Tablet 10 mg PO DAILY Qty: 90 1RF buspirone 10 mg tablet 10 mg PO DAILY Patient Comments: TAKE 1 TABLET BY MOUTH TWICE DAILY FOR 14 DAYS ProAir RespiClick 90 mcg/actuation aerosol powdr breath activated 2 inh inhalation Q4H PRNQty: 1 0RF hydroxyzine HCl 10 mg tablet 20 mg PO QHS budesonide-formoterol [Symbicort] 80-4.5 mcg/actuation Hfa Aerosol Inhaler 2 puff inhalation BID Qty: 10.2 0RF budesonide-formoterol [Symbicort] 80-4.5 mcg/actuation Hfa Aerosol Inhaler 2 puff inhalation Q2H PRN MDD max 12 puffs a day total PRN (Reason: Wheezing , asthma exacerbation) Qty: 10.2 0RF Discontinued prednisone 20 mg Tablet 60 mg PO DAILY Qty: 18 0RF Rx Instructions: Take 60 mg X 3 days Then 40 mg X 3 days then 20 mg X 3 days then stop Discharge Instructions Instructions: Asthma, Adult ED Additional Instructions: Take 60mg of prednisone for the next 5 days. Use your albuterol nebulizer prn for shortness of breath. Call your primary care doctor in the morning to schedule an appointment for within the next 72 hours to followup on your visit here. Return to the emergency department IMMEDIATELY if your shortness of breath returns and does not go away with a nebulizer treatment at home. Asthma can be deadly or result in brain damage. HPI General Mode of arrival: ambulatory . Date/Time Provider Initiated Documentation: 04/30/25 18:24 . Limitations to Documentation: no limitations . Information obtained by: patient . HPI Narrative: 40yoF with hx of asthma presenting with shortness of breath. Today had wheezing and shortness of breath throughout the day, did improve with albuterol inhaler but was 'out and about' and did not have access to home neb. Arrives with severe shortness of breath and respiratory distress that started about 10 mintues prior to arrival. Denies prior intubations for asthma, has required biPAP and admission in the past. No fevers, chest pain, palpitations, or other concerns. Related Data Home Medications ?Medication ?Instructions ?Recorded ?Confirmed montelukast 10 mg tablet 10 mg PO DAILY 07/30/1605/17 (Singulair) loratadine 10 mg tablet 10 mg PO DAILY #90 tabs 09/2304/30/25 buspirone 10 mg tablet 10 mg PO DAILY 07/20/2405/17 albuterol sulfate 90 mcg/actuation 2 inh inhalation Q4 H PRN #1 ea 12/12/24 04/30/25 breath activated powder inhaler (ProAir RespiClick) hydroxyzine HCl 10 mg tablet 20 mg PO QHS 01/14/2505/17 budesonide-formoterol HFA 80 2 puff inhalation BID #10 .2 grams 01/15/25 04/30/25 mcg-4.5 mcg/actuation aerosol inhaler (Symbicort) budesonide-formoterol HFA 80 2 puff inhalation Q2H PRN PRN 01/15/25 04/30/25 mcg-4.5 mcg/actuation aerosol Wheezing , asthma exace rbation inhaler (Symbicort) #10.2 grams prednisone 20 mg tablet 60 mg (3 x 20 mg) PO DAILY # 12 tabs 04/30/25 Previous Rx's ?Medication ?Instructions ?Recorded loratadine 10 mg tablet 10 mg PO DAILY #90 tabs 09/23 10/12 albuterol sulfate 90 mcg/actuation 2 inh inhalation Q4 H PRN #1 ea 12/12/24 breath activated powder inhaler (ProAir RespiClick) budesonide-formoterol HFA 80 2 puff inhalation BID #10 .2 grams 01/15/25 mcg-4.5 mcg/actuation aerosol inhaler (Symbicort) budesonide-formoterol HFA 80 2 puff inhalation Q2H PRN PRN 01/15/25 mcg-4.5 mcg/actuation aerosol Wheezing , asthma exace rbation inhaler (Symbicort) #10.2 grams prednisone 20 mg tablet 60 mg (3 x 20 mg) PO DAILY # 12 tabs 04/30/25 Allergies Allergy/AdvReac Type Severity Reaction Status Date / Time Penicillins Allergy Mild Skin Rash Verified 11/20/24 13:20 bee pollen AdvReac Severe Anaphylaxsi Verified 11/20/24 13:20 s pet dender Allergy Mild Itching Uncoded 11/20/24 13:20 mold AdvReac Severe Anaphylaxsi Uncoded 11/20/24 13:20 s General Stated Complaint: RespSymp DAYO: 2 Review of Systems Narrative: see HPI Exam Narrative Exam Narrative: General: Alert, respiratory distress Head: Normocephalic, atraumatic Neck: Trachea midline, ?Neck supple. ENT: ?MMM.? Cardiac: ?Tachycardiac, regular. Resp:Tripoding, wheeze, decreased air movement, increased WOB Abd: ?Soft, non-distended, nontender Extremities: ?No deformities.? No peripheral edema. Neurologic: GCS 15. ? Moves all extremities freely against gravity Course Vital Signs Vital signs: Vital Signs Pulse 120 H 04/30/25 18:24 Pulse Oximetry 96 04/30/25 18:24 Pulse 88 04/30/25 20:50 Pulse 87 04/30/25 20:50 Respiratory Rate 15 04/30/25 20:50 Respiratory Effort Short of Breath, Labored, Accessory Muscle Use, Incrsd Work of Breathing 04/30/25 18:52 Respiratory Depth Deep 04/30/25 18:52 Blood Pressure 105/55 L 04/30/25 20:46 Blood Pressure Mean 70 04/30/25 20:46 Pulse Oximetry 100 04/30/25 20:50 Oxygen Delivery Method Aerosol Mask 04/30/25 19:00 Oxygen Flow Rate 8 04/30/25 19:00 Fraction of Inspired Oxygen (FIO2) 30 04/30/25 18:34 Lab/Test Results Lab/Test Results: Laboratory Tests Range/Units 04/30/25 04/30/25 04/30/25 07:00 18:31 20:05 WBC (4.4-10.8) 10^3/uL 9.05 RBC (3.93-5.22) 10^6/uL 4.79 Hgb (11.2-15.7) g/dL 14.6 Hct (36.0-46.0) % 43.7 MCV (80-95) fL 91 MCH (27.0-33.0) pg 30.5 MCHC (32.0-36.0) % 33.4 RDW (11.7-14.6) % 13.2 Plt Count (130-400) 10^3/uL 317 MPV (8.0-11.0) fL 7.9 L VBG pH (7.31-7.41) 7.39 7.40 7.37 VBG pCO2 (41-51) mmHg 46 42 46 VBG pO2 mmHg 39 54 45 VBG HCO3 (23-28) mmol/L 28 26 27 VBG Total CO2 (24-29) mmol/L 25 23 L 24 VBG O2 Saturation % 75 89 81 VBG Base Excess (-2-3) mmol/L 3 1 1 Sodium (136-145) mmol/L 140 Potassium (3.5-5.1) mmol/L 3.7 Chloride (98-107) mmol/L 105 Carbon Dioxide (21.0-32.0) mmol/L 28.0 Anion Gap (3-11) mmol/L 7.0 BUN (7-18) mg/dL 10 Creatinine (0.55-1.02) mg/dL 0.9 Est GFR (CKD-EPI 2020) (mL/min/1.73m2) 82.88 Glucose (74-106) mg/dL 109 H Calcium (8.5-10.1) mg/dL 8.8 Magnesium (1.8-2.4) mg/dL 1.8 Total Bilirubin (0.2-1.0) mg/dL 0.4 AST (15-37) U/L 9 L ALT (14-59) U/L 20 Alkaline Phosphatase (46-116) U/L 87 Total Protein (6.4-8.2) g/dL 6.9 Albumin (3.4-5.0) g/dL 3.3 L Range/Units 04/30/25 21:05 WBC (4.4-10.8) 10^3/uL RBC (3.93-5.22) 10^6/uL Hgb (11.2-15.7) g/dL Hct (36.0-46.0) % MCV (80-95) fL MCH (27.0-33.0) pg MCHC (32.0-36.0) % RDW (11.7-14.6) % Plt Count (130-400) 10^3/uL MPV (8.0-11.0) fL VBG pH (7.31-7.41) 7.36 VBG pCO2 (41-51) mmHg 46 VBG pO2 mmHg 64 VBG HCO3 (23-28) mmol/L 26 VBG Total CO2 (24-29) mmol/L 23 L VBG O2 Saturation % 93 VBG Base Excess (-2-3) mmol/L 1 Sodium (136-145) mmol/L Potassium (3.5-5.1) mmol/L Chloride (98-107) mmol/L Carbon Dioxide (21.0-32.0) mmol/L Anion Gap (3-11) mmol/L BUN (7-18) mg/dL Creatinine (0.55-1.02) mg/dL Est GFR (CKD-EPI 2020) (mL/min/1.73m2) Glucose (74-106) mg/dL Calcium (8.5-10.1) mg/dL Magnesium (1.8-2.4) mg/dL Total Bilirubin (0.2-1.0) mg/dL AST (15-37) U/L ALT (14-59) U/L Alkaline Phosphatase (46-116) U/L Total Protein (6.4-8.2) g/dL Albumin (3.4-5.0) g/dL Medical Decision Making 40yoF with hx of asthma presenting with shortness of breath. Called to triage to evaluate patient in respiratory distress. Symptoms have been ongoing throughout the day, acute worsening 10 minutes ago. Denies prior intubations for asthma, has required biPAP and admission in the past. Arrives in clear respiratory distress, wheeze, poor air movement. Initial BP low; repeat without intervention 105/60. Afebrile. Inital resus: -Transferred to resus room, respiratory paged with plan for continuous albuterol, methylpred, mag, and BiPAP. Will try to avoid intubation if at all possible. -Air movement improved within 10 minutes of initiation of treatment. Patient tolerating biPAP poorly, removed and albuterol transitioned to facemask. Considered ativan to allow for BiPAP but air movement remains improved after removal of BIPAP and patient reports symptoms improving, now able to speak in 4- 5 word sentences. Given this, will observe closely and hold off on BiPAP/ativan. -Patient with continued improvement over the next 20 minutes, WOB/air movement/symptoms all improving. Labs reviewed as below,CBC reassuring with no leukocytosis or anemia CMP with no actionable abnormalities, Mg normal. Initial VBG without respiratory acidosis; may be due to relatively acute onset of severe symptoms vs decompensating respiratory status. Will trend. CXR independently reviewed, no focal pneumonia or pneumothorax on my view (does appear hyperinflated), radiology read below with no acute findings. On reassessment after 1 hour of continuous, good air movement. Still expiratory wheeze. WOB normalized. Will give 3 stacked duonebs and reasses. On subsequent reassessment patient appears comfortable, lungs CTAB, no increased WOB, smiling, speaking in full sentences. Repeat VBGs reassuring. On reassessment 2 hours after cessation of nebs, patient entirely comfortably, reports breathing feels normal, lungs CTAB. Remains somewhat tachycardiac in the setting of high doses of albuterol. She would like to go home. I would prefer to observe for an additional 2 hours but she is adamantly opposed to this; I feel it is appropriate for her go home with plan for immediate return to the ED should her symptoms come back. She is agreeable to this. Will send with 60mg of prednisone for tomorrow and send prescription for 4 additional days. Discharged home; discharge instructions and return precautions were reviewed with martelln who verbalized understanding. All questoins were answered and she is in full agreement with the plan. Lab Data Lab results reviewed: Yes I reviewed the patient's lab results. Labs: Laboratory Tests Range/Units 04/30/25 04/30/25 04/30/25 07:00 18:25 18:31 WBC (4.4-10.8) 10^3/uL 9.05 RBC (3.93-5.22) 10^6/uL 4.79 Hgb (11.2-15.7) g/dL 14.6 Hct (36.0-46.0) % 43.7 MCV (80-95) fL 91 MCH (27.0-33.0) pg 30.5 MCHC (32.0-36.0) % 33.4 RDW (11.7-14.6) % 13.2 Plt Count (130-400) 10^3/uL 317 MPV (8.0-11.0) fL 7.9 L VBG pH (7.31-7.41) 7.39 7.40 VBG pCO2 (41-51) mmHg 46 42 VBG pO2 mmHg 39 54 VBG HCO3 (23-28) mmol/L 28 26 VBG Total CO2 (24-29) mmol/L 25 23 L VBG O2 Saturation % 75 89 VBG Base Excess (-2-3) mmol/L 3 1 Sodium (136-145) mmol/L 140 Potassium (3.5-5.1) mmol/L 3.7 Chloride (98-107) mmol/L 105 Carbon Dioxide (21.0-32.0) mmol/L 28.0 Anion Gap (3-11) mmol/L 7.0 BUN (7-18) mg/dL 10 Creatinine (0.55-1.02) mg/dL 0.9 Est GFR (CKD-EPI 2020) (mL/min/1.73m2) 82.88 Glucose (74-106) mg/dL 109 H Calcium (8.5-10.1) mg/dL 8.8 Magnesium (1.8-2.4) mg/dL 1.8 Total Bilirubin (0.2-1.0) mg/dL 0.4 AST (15-37) U/L 9 L ALT (14-59) U/L 20 Alkaline Phosphatase (46-116) U/L 87 Total Protein (6.4-8.2) g/dL 6.9 Albumin (3.4-5.0) g/dL 3.3 L COVID-19 Source Cancelled SARS-CoV-2 (PCR) Cancelled Influenza Type A (PCR) Cancelled Influenza Type B (PCR) Cancelled RSV (PCR) Cancelled Range/Units 04/30/25 04/30/25 04/30/25 20:05 21:05 22:00 WBC (4.4-10.8) 10^3/uL RBC (3.93-5.22) 10^6/uL Hgb (11.2-15.7) g/dL Hct (36.0-46.0) % MCV (80-95) fL MCH (27.0-33.0) pg MCHC (32.0-36.0) % RDW (11.7-14.6) % Plt Count (130-400) 10^3/uL MPV (8.0-11.0) fL VBG pH (7.31-7.41) 7.37 7.36 Cancelled VBG pCO2 (41-51) mmHg 46 46 Cancelled VBG pO2 mmHg 45 64 Cancelled VBG HCO3 (23-28) mmol/L 27 26 Cancelled VBG Total CO2 (24-29) mmol/L 24 23 L Cancelled VBG O2 Saturation % 81 93 Cancelled VBG Base Excess (-2-3) mmol/L 1 1 Cancelled Sodium (136-145) mmol/L Potassium (3.5-5.1) mmol/L Chloride (98-107) mmol/L Carbon Dioxide (21.0-32.0) mmol/L Anion Gap (3-11) mmol/L BUN (7-18) mg/dL Creatinine (0.55-1.02) mg/dL Est GFR (CKD-EPI 2020) (mL/min/1.73m2) Glucose (74-106) mg/dL Calcium (8.5-10.1) mg/dL Magnesium (1.8-2.4) mg/dL Total Bilirubin (0.2-1.0) mg/dL AST (15-37) U/L ALT (14-59) U/L Alkaline Phosphatase (46-116) U/L Total Protein (6.4-8.2) g/dL Albumin (3.4-5.0) g/dL COVID-19 Source SARS-CoV-2 (PCR) Influenza Type A (PCR) Influenza Type B (PCR) RSV (PCR) Range/Units 04/30/25 23:00 WBC (4.4-10.8) 10^3/uL RBC (3.93-5.22) 10^6/uL Hgb (11.2-15.7) g/dL Hct (36.0-46.0) % MCV (80-95) fL MCH (27.0-33.0) pg MCHC (32.0-36.0) % RDW (11.7-14.6) % Plt Count (130-400) 10^3/uL MPV (8.0-11.0) fL VBG pH (7.31-7.41) Cancelled VBG pCO2 (41-51) mmHg Cancelled VBG pO2 mmHg Cancelled VBG HCO3 (23-28) mmol/L Cancelled VBG Total CO2 (24-29) mmol/L Cancelled VBG O2 Saturation % Cancelled VBG Base Excess (-2-3) mmol/L Cancelled Sodium (136-145) mmol/L Potassium (3.5-5.1) mmol/L Chloride (98-107) mmol/L Carbon Dioxide (21.0-32.0) mmol/L Anion Gap (3-11) mmol/L BUN (7-18) mg/dL Creatinine (0.55-1.02) mg/dL Est GFR (CKD-EPI 2020) (mL/min/1.73m2) Glucose (74-106) mg/dL Calcium (8.5-10.1) mg/dL Magnesium (1.8-2.4) mg/dL Total Bilirubin (0.2-1.0) mg/dL AST (15-37) U/L ALT (14-59) U/L Alkaline Phosphatase (46-116) U/L Total Protein (6.4-8.2) g/dL Albumin (3.4-5.0) g/dL COVID-19 Source SARS-CoV-2 (PCR) Influenza Type A (PCR) Influenza Type B (PCR) RSV (PCR) Quality:SDOH Health Related Social Needs: Health related social needs food insecurity Health related social needs details Pt states prior to traveling as a [employer] she had more difficulty with food security. Not a problem currently Critical Care Time Critical Care Time Critical Care Time: Yes Total Critical Care Time: 36 Attestation: Due to a high probability of clinically significant, life threatening deterioration, the patient required my highest level of preparedness to intervene emergently and I personally spent this critical care time directly and personally managing the patient. This critical care time included obtaining a history; examining the patient; pulse oximetry; ordering and review of studies; arranging urgent treatment with development of a management plan; evaluation of patient's response to treatment; frequent reassessment; and, discussions with other providers. This critical care time was performed to assess and manage the high probability of imminent, life-threatening deterioration that could result in multi-organ failure. It was exclusive of separately billable procedures and treating other patients and teaching time. PFSH All Active Problems (Updated 04/30/25 @ 22:29 by Vannessa Taylor MD) Asthma exacerbation (Acute) Acute asthma exacerbation (Acute) Acute anxiety (Acute) Seasonal allergies (Chronic) Obesity, morbid, BMI 40.0-49.9 (Chronic) Medical History Chronic hyperglycemia Chronic anxiety Nicotine abuse GERD (gastroesophageal reflux disease) Asthma Surgical History H/O section History of bilateral tubal ligation Family History Maternal Grandfather Hypertension Maternal Aunt Hypertension Maternal Uncle Diabetes Lung cancer Maternal Uncle Diabetes Maternal Grandmother Diabetes Mother Prediabetes Social History Smoking/Tobacco Use Status: Current every day Tobacco Type: e-cigarettes Smoking risk assessment performed?: Yes Alcohol Intake: current Alcohol Intake frequency: a few times a month Alcohol type: wine Drug use: Occasionally Substance use type: marijuana Details: patient eats the marijuana gummies Housing: apartment Do you feel safe at home: Yes Do you feel safe in your relationship?: Yes PAWSS Have you Been Recently Intoxicated or Drunk Within the Last 30 days?: No Have you Ever Experienced Previous Episodes of Alcohol Withdrawal?: No Have you ever Experienced Withdrawal Seizures?: No Have you ever Experienced Delirium Tremens(DT)s?: No Have you ever undergone Alcohol Rehabilitation Treatment (i.e, inpt ot outpatient treatment programs)?: No Have you ever Experienced Blackouts?: No Have you ever Combined Alcohol with other Downers within the last 90 days?: No Have you ever Combined Alcohol with any other Substance of Abuse during the last 90 days?: No Positive Blood Alcohol level on Presentation? [PCS.BAL]: No Evidence of Increased Autonomic Activity (i.e. HR>120, tremor, sweating, agitation, nausea)?: No Result: 0
== END 2025-04-30 22:49 | disposition home or self-care (01) ==
PROVIDERS: Emergency Provider Student in an Organized Health Care Education/Training Program; PCP Family Medicine
DX: J45.901 Unspecified asthma with (acute) exacerbation (principal)
CPT/HCPCS: 99291; 96375; 80053; 82805; 85027; 87637; 93005; 96365; 71045; 83735; 93010; 94640; J2919; J3475; J7613; J7620